=== PATIENT | male | born 1970 | race African-American/Black ===

== ENCOUNTER → 2016-06-20 | Outpatient (CLI) | payer MEDICAID ==
[2016-06-20 12:36] LABS: Basophils % (A) 1 %; CH 27.9; Eosinophils # (A) 0.1 k/uL (0-0.7); Eosinophils % (A) 2 %; HCT 48.4 % (39.0-53.0); HDW 2.59; HGB 14.7 gm/dL (13.0-17.5); Luc % (Auto) 2; Lymphocytes # (A) 1.6 k/uL (1.0-4.8); Lymphocytes % (A) 34 %; MCH 26.7 pg (25.0-35.0); MCHC 30.5 g/dL (31.0-37.0); MCV 87.7 fL (80.0-100.0); Monocytes # (A) 0.4 k/uL (0-1.0); Monocytes % (A) 9 %; Neutrophils # (A) 2.5 k/uL (1.3-7.7); Neutrophils % (A) 52 %; RBC 5.52 m/uL (4.30-5.90); RDW 12.9 % (11.5-15.5); WBC 4.7 k/uL (3.8-10.6); WBC (Perox) 4.55
[2016-06-20 12:45] LABS: ALT 34 U/L (21-72); AST 42 U/L (17-59); Alkaline Phosphatase 85 U/L (38-126); Anion Gap 13 mmol/L; Blood Urea Nitrogen 20 mg/dL (9-20); Calcium 9.7 mg/dL (8.4-10.2); Carbon Dioxide 23 mmol/L (22-30); Chloride 106 mmol/L (98-107); Cholesterol 176 mg/dL (<200); Creatine Kinase 453 U/L (55-170); Glucose 81 mg/dL (74-99); HDL Cholesterol 77 mg/dL (40-60); Iron 113 ug/dL (49-181); Non-African American GFR(MDRD) 59 (>60 ml/min/1.73 sqM); Potassium 4.5 mmol/L (3.5-5.1); Sodium 142 mmol/L (137-145); Total Bilirubin 1.8 mg/dL (0.2-1.3); Total Protein 7.7 g/dL (6.3-8.2); Triglycerides 91 mg/dL (<150)
[2016-06-20 12:55] LABS: % Iron Saturation 30.2 % (20-50); Total Iron Binding Capacity 374 ug/dL (261-462)
[2016-06-20 13:06] LABS: Hemoglobin A1C 5.2 % (4.2-6.1)
== END | disposition home or self-care (01) ==
LOC: LABWHC1 11:28
PROVIDERS: ATTEND Internal Medicine
DX: Z00.00 Encounter for general adult medical examination without abnormal findings (principal); E78.00 Pure hypercholesterolemia, unspecified; E55.9 Vitamin D deficiency, unspecified; K27.9 Peptic ulcer, site unspecified, unspecified as acute or chronic, without hemorrhage or perforation; F41.1 Generalized anxiety disorder
CPT/HCPCS: 36415; 80053; 80061; 82306; 82550; 82728; 83036; 83540; 83550; 84153; 84439; 84443; 85025

== ENCOUNTER → 2017-06-21 | Outpatient (CLI) | payer MEDICAID ==
--- NOTE | 2017-06-21 16:13 | XR ---
EXAMINATION TYPE: XR knee complete RT DATE OF EXAM: 06/21/2017 CLINICAL HISTORY: Right knee pain following a twisting injury while playing basketball TECHNIQUE: Three views of the right knee are obtained. COMPARISON: 12/29/2010 FINDINGS: There is a well-corticated osseous fragment medial to the medial distal femoral condyle th at is not seen on the lateral image and therefore does not represent a flabella. No donor site is [place] reciated and this is slightly cephalad in position to relate to a reverse Segond fracture, however th is remains a possibility and should be excluded with MRI. The tri-compartment joint spaces appear wi thin normal limits. The overlying soft tissue appears unremarkable. There is redemonstration of a si milar appearing approximately 1 cm lucent lesion within the central tibial plateau. Given the stabili ty this most likely represents a benign etiology. Patella christine is also demonstrated. IMPRESSION: Small osseous fragment medial to the medial femoral condyle which is atypical for a reverse Segond fr acture with no donor site appreciated, however this should be excluded and MRI could be performed for further evaluation. Note is also made of patella christine.
== END | disposition home or self-care (01) ==
LOC: RADXRMAIN 14:24
PROVIDERS: ATTEND Internal Medicine
DX: M25.561 Pain in right knee (principal)

== ENCOUNTER → 2017-07-03 | Outpatient (CLI) | payer MEDICAID ==
--- NOTE | 2017-07-03 10:11 | MR ---
EXAMINATION TYPE: MR knee RT wo con DATE OF EXAM: 07/03/2017 COMPARISON: Radiographs 06/21/2017 HISTORY: 47-year-old male with right knee pain TECHNIQUE: Multiplanar, multisequence imaging of the right knee is performed without IV contrast. FINDINGS: ACL is intact. There is linear abnormal signal extending throughout the PCL which is mildly thickened at 8 mm. Mild edema on either side of the intact MCL. LCL complex is intact. There is a posterior root tear of the medial meniscus with extruded meniscal body. Irregular tear ext ends throughout the posterior horn and body with meniscal fragment extruded into the superior gutter and a small 7 mm loose body also the superior gutter. Severe cartilage loss along the mid peripheral aspect of the medial tibial plateau with underlying wallace bchondral cystic change and moderate to severe irregular cartilage loss along the mid to posterior we ightbearing aspect of the medial femoral condyle. Again, subchondral cystic changes present. Minimal inner margin fraying of the body of the lateral meniscus. No other discrete lateral meniscal tear is seen. Overall lateral compartment articular cartilage volume is maintained. Moderate focal irregular cartilage loss along the trochlear groove. Patellar articular cartilage volu me is largely maintained. Extensor mechanism is intact. Focal soft tissue edema within Hoffa's fat located inferior and lateral to the patella. Some fragmentation at the tibial tuberosity could represent sequela of osteochondritis slaughters dis ease. Patellar height ratio is 1.1 which falls within acceptable limits. There is a small knee joint effusion without Cast's cyst. Normal popliteal artery anatomy and muscle bulk. There is a 1.3 cm intraosseous ganglion cyst at the tibial PCL insertion site. No suspicious bone marrow replacement. IMPRESSION: 1. Moderate to severe medial compartmental osteoarthrosis with a degenerative, torn, and extruded med ial meniscus. A meniscal fragment is extruded into the superior gutter where a 7 mm loose body is als o present. There is a complete posterior root tear also noted. 2. Partial tear PCL and low-grade sprain MCL. 3. Moderate focal irregular cartilage loss along the trochlear groove within the patellofemoral shivam rtment. 4. Focal soft tissue edema in Hoffa's fat inferior and lateral to the patella can be seen in the sett ing of fat pad impingement syndrome. Clinically correlate. 5. Small knee joint effusion.
== END | disposition home or self-care (01) ==
LOC: RADMRIMAIN 06:47
PROVIDERS: ATTEND Internal Medicine
DX: S83.421A Sprain of lateral collateral ligament of right knee, initial encounter (principal); S83.411A Sprain of medial collateral ligament of right knee, initial encounter; M17.11 Unilateral primary osteoarthritis, right knee; S83.241A Other tear of medial meniscus, current injury, right knee, initial encounter

== ENCOUNTER → 2017-07-10 | Outpatient (CLI) | payer MEDICAID ==
[2017-07-10 13:24] LABS: Basophils % (A) 1 %; Eosinophils # (A) 0.2 k/uL (0-0.7); Eosinophils % (A) 6 %; HCT 41.6 % (39.0-53.0); HGB 13.1 gm/dL (13.0-17.5); Hypochromasia Slight; Lymphocytes # (A) 1.3 k/uL (1.0-4.8); Lymphocytes % (A) 34 %; MCH 27.4 pg (25.0-35.0); MCHC 31.4 g/dL (31.0-37.0); MCV 87.4 fL (80.0-100.0); Mean Platelet Volume 6.9; Monocytes # (A) 0.3 k/uL (0-1.0); Monocytes % (A) 9 %; Neutrophils # (A) 1.9 k/uL (1.3-7.7); Neutrophils % (A) 48 %; Platelet Count 256 k/uL (150-450); RBC 4.76 m/uL (4.30-5.90); RDW 12.8 % (11.5-15.5); WBC 3.9 k/uL (3.8-10.6)
[2017-07-10 13:40] LABS: Potassium 3.9 mmol/L (3.5-5.1)
== END | disposition home or self-care (01) ==
LOC: LABPAT 12:57
PROVIDERS: ATTEND Internal Medicine
DX: Z01.818 Encounter for other preprocedural examination (principal); M23.91 Unspecified internal derangement of right knee
CPT/HCPCS: 36415; 80051; 85025; 93005

== ENCOUNTER 2017-07-19 13:27 | Day surgery (SDC) | payer MEDICAID ==
[2017-07-12 14:16] VITALS: BMI 20.5
--- NOTE | 2017-07-18 21:34 | HP ---
HISTORY AND PHYSICAL REASON FOR ADMISSION: Surgery 07/19/2017 HISTORY OF PRESENT ILLNESS: Owen Edwards is a 47-year-old patient seen with right knee pain. We discussed treatment options. He elected to proceed with arthroscopy. Consent was obtained his. PAST MEDICAL HISTORY: Noncontributory. PAST SURGICAL HISTORY: Knee arthroscopy. MEDICATIONS: [place] as needed, ibuprofen as needed. ALLERGIES: None reported. SOCIAL HISTORY: Patient denies tobacco use. PHYSICAL EXAMINATION: Evaluation of the right knee range of motion 0-90 degrees. Mild effusion. Tenderness medial joint line. Positive medial Candi's. Ligaments stable. Hip rotation without pain. Distal neurovascular exam is intact. RADIOGRAPHS: Right knee radiographs revealed moderate medial compartment osteoarthritis, right knee MRI revealed medial meniscal tear. IMPRESSION: Internal derangement, right knee with medial meniscal tear. PLAN: Right knee arthroscopy with partial meniscectomy and debridement. Surgery is scheduled for 07/19/2017. MMODL / IJN: [id number] /
[~2017-07-19 13:27] MED LIST: DEXAMETHASONE SOD PHOSPHATE 10 MG/ML 1 ML VIAL IV ONE; LIDOCAINE 1% 20 ML VIAL (10MG/ML) FOR IV START INTRADERMA PRN; MIDAZOLAM 2 MG/2 ML VIAL IV PRN; ONDANSETRON 4 MG/2 ML VIAL IVP ONE; SCOPOLAMINE 1.5MG/72HR PATCH TRANSDERM ONE; ceFAZolin IN SWFI 2 GM/20 ML SYRINGE IVP ONE
[2017-07-19] MEDS: LACTATED RINGERS 1,000 ML IV SCH ×2 (13:48→14:59)
[2017-07-19] MEDS ORDERED: BUPIVACAINE (PF) 0.25% 30 ML VIAL SQ ONE (14:17)
[2017-07-19] MEDS ORDERED: fentaNYL (PF) 50 MCG/ML 2 ML AMP ONE (14:59)
[2017-07-19] MEDS ORDERED: MIDAZOLAM 2 MG/2 ML VIAL ONE (14:59)
[2017-07-19] MEDS ORDERED: SUCCINYLCHOLINE CHLORIDE 100 MG/5 ML SYR IV ONE (14:59)
[2017-07-19] MEDS ORDERED: PROPOFOL 10 MG/ML 20 ML VIAL IV ONE (14:59)
[2017-07-19] MEDS ORDERED: LIDOCAINE 1% INJ 10MG/ML (20 ML MDV) ONE (14:59)
[2017-07-19 15:48] VITALS: TEMP 97.2
--- NOTE | 2017-07-19 15:48 | P.OP ---
Date of Procedure: 07/19/17 Preoperative Diagnosis: Internal derangement right knee Postoperative Diagnosis: 1. Tear medial and lateral meniscus right knee 2. 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 Grade 4 chondromalacia medial tibial plateau right knee 4. Grade 2 chondromalacia patella right knee 5. Reactive synovitis medial and suprapatellar compartments right knee Procedure(s) Performed: 1. Arthroscopic partial medial and lateral meniscectomy right knee 2. Arthroscopic chondroplasty medial femoral condyle right knee 3. Arthroscopic chondroplasty patella right knee 4. Arthroscopic partial synovectomy medial and suprapatellar compartments right knee Anesthesia: KATHY, local Surgeon: Rick Delgadillo Estimated Blood Loss (ml): 7 Pathology: none sent Condition: stable Disposition: PACU Indications for Procedure: 47-year-old patient seen with right knee pain. We discussed treatment options, he elected to proceed with arthroscopy. Operative Findings: See description of procedure Description of Procedure: Patient was taken to the operative suite. Patient underwent a general anesthetic by the department of anesthesia. Patient was given preoperative antibiotics. The right lower extremity was placed in a well-padded arthroscopic leg lerma. The right leg was prepped and draped in the normal sterile orthopedic fashion. A lateral parapatellar and suprapatellar incision was made. Trochars were inserted. Arthroscopy was initiated. Suprapatellar pouch revealed diffuse thick reactive synovitis. The patellofemoral joint appeared articulate congruently. There was grade 2 chondromalacia of the patella with some osteochondral tears present. The scope was guided into the medial gutter. No loose bodies or plica were identified. The scope was then guided into the medial compartment. A medial parapatellar incision was made. Trocar inserted followed by probe. There was a large medial meniscal tear which was displaced into the anterior joint line area. This was reduced. It was a complete posterior horn medial meniscal tear just the midbody. There was an area of grade 3/4 chondromalacia weightbearing surface medial femoral condyle large osteochondral tears. There was an area of grade 4 chondromalacia medial tibial plateau with osteochondral tears and some exposed bone. There was thick reactive synovitis anteriorly. I performed a partial medial meniscectomy down to stable tissue. I performed a chondroplasty of the medial femoral condyle and tibial plateau down to stable tissue. I performed a partial synovectomy. The residual meniscus was stable. The residual osteochondral surfaces of the femoral condyle and tibial plateau were stable with the aforementioned areas of chondromalacia noted. Scope and probe were then guided into the intercondylar notch. Cruciates were identified, probed and found to be stable. The scope and probe were then guided into lateral compartment. There was some superficial tearing of the midbody lateral meniscus. There were some grade 1 chondromalacia changes lateral compartment with no osteochondral tears. I performed a partial lateral meniscectomy down to stable tissue. The residual meniscus was stable. The scope was in guided back into the suprapatellar compartment. Used a motorized shaver into the suprapatellar compartment. I debrided some piecemeal fragments of meniscus I encountered. I performed a chondroplasty of the patella down to stable tissue. I performed a partial synovectomy. Shaver removed. I took one more look around the entire knee, no residual debris. Instruments were now removed from the joint. The joint was infiltrated with .25% Marcaine. Steri-Strips were applied to the portal sites. Sterile dressings were applied. The patient was placed into a BIANCA hose. No tourniquet was utilized. The patient was awakened, transferred to a bed and taken to recovery stable satisfactory condition.
[2017-07-19] MEDS ORDERED: HYDROmorphone 2 MG/ML 1 ML SYRINGE IVP ONE ×2 (15:58→16:03)
[2017-07-19] MEDS: HYDROmorphone 0.5 MG/0.5 ML SYRINGE IVP PRN ×2 (16:15→16:59)
[2017-07-19 17:28] VITALS: RESP 18
[2017-07-19] MEDS ORDERED: HYDROcodone/APAP 10-325MG 1 EACH TAB PO ONE (17:40)
[2017-07-19 18:16] VITALS: BP 124/74; PULSE 86
== END 2017-07-19 18:49 | disposition home or self-care (01) ==
LOC: OR 13:27
PROVIDERS: ATTEND Orthopaedic Surgery
DX: S83.241A Other tear of medial meniscus, current injury, right knee, initial encounter (principal); S83.281A Other tear of lateral meniscus, current injury, right knee, initial encounter; X58.XXXA Exposure to other specified factors, initial encounter; M94.261 Chondromalacia, right knee; M22.41 Chondromalacia patellae, right knee; M65.861 Other synovitis and tenosynovitis, right lower leg; M25.461 Effusion, right knee; M17.11 Unilateral primary osteoarthritis, right knee; K21.9 Gastro-esophageal reflux disease without esophagitis; Z79.899 Other long term (current) drug therapy
CPT/HCPCS: 29880; J2250; J1170 ×2; J1100; J2405; J2001; J3010; J0330; J2704; J0690

== ENCOUNTER → 2018-01-24 | Outpatient (CLI) | payer MEDICAID ==
[2018-01-24 10:09] LABS: Appearance,Urine Clear (Clear); Bilirubin,Urine Negative (Negative); Blood,Urine Negative (Negative); Color,Urine Yellow; Glucose,Urine (UA) Negative (Negative); Ketones,Urine Negative (Negative); Leukocyte Esterase,Urine Negative (Negative); Nitrite,Urine Negative (Negative); PH, Urine 6.5 (5.0-8.0); Protein,Urine Trace (Negative); Specific Gravity,Urine 1.022 (1.001-1.035); Urobilinogen,Urine <2.0 mg/dL (<2.0)
[2018-01-24 10:17] LABS: Calcium 9.4 mg/dL (8.4-10.2); Potassium 4.5 mmol/L (3.5-5.1); Total Bilirubin 0.8 mg/dL (0.2-1.3); Total Protein 6.4 g/dL (6.3-8.2); Uric Acid 2.9 mg/dL (3.5-8.5)
[2018-01-24 10:21] LABS: Basophils % (A) 1 %; Eosinophils # (A) 0.4 k/uL (0-0.7); Eosinophils % (A) 11 %; HCT 37.5 % (39.0-53.0); HGB 11.5 gm/dL (13.0-17.5); Hypochromasia Moderate; Lymphocytes # (A) 1.3 k/uL (1.0-4.8); Lymphocytes % (A) 38 %; MCH 26.5 pg (25.0-35.0); MCHC 30.6 g/dL (31.0-37.0); MCV 86.5 fL (80.0-100.0); Mean Platelet Volume 6.8; Monocytes # (A) 0.4 k/uL (0-1.0); Monocytes % (A) 12 %; Neutrophils # (A) 1.2 k/uL (1.3-7.7); Neutrophils % (A) 36 %; Platelet Count 276 k/uL (150-450); RBC 4.33 m/uL (4.30-5.90); RDW 13.4 % (11.5-15.5); WBC 3.4 k/uL (3.8-10.6)
[2018-01-24 10:33] LABS: T4, Free (Free Thyroxine) 1.04 ng/dL (0.78-2.19)
[2018-01-24 10:47] LABS: Prostate Specific Antigen 0.49 ng/mL (0.00-4.00)
[2018-01-24 18:21] LABS: Hemoglobin A1C 5.7 % (4.0-6.0)
== END | disposition home or self-care (01) ==
LOC: LABWHC1 09:22
PROVIDERS: ATTEND Internal Medicine
DX: E55.9 Vitamin D deficiency, unspecified (principal); K27.9 Peptic ulcer, site unspecified, unspecified as acute or chronic, without hemorrhage or perforation; E78.00 Pure hypercholesterolemia, unspecified; F41.1 Generalized anxiety disorder; N40.0 Benign prostatic hyperplasia without lower urinary tract symptoms
CPT/HCPCS: 36415; 80053; 80061; 81003; 82306; 82550; 83036; 84153; 84439; 84443; 84550; 85025

== ENCOUNTER → 2018-04-25 | Outpatient (CLI) | payer MEDICAID ==
[2018-04-25 10:39] LABS: Basophils % (A) 1 %; Eosinophils # (A) 0.9 k/uL (0-0.7); Eosinophils % (A) 17 %; HCT 37.1 % (39.0-53.0); HGB 11.1 gm/dL (13.0-17.5); Hypochromasia Marked; Lymphocytes # (A) 1.8 k/uL (1.0-4.8); Lymphocytes % (A) 34 %; MCH 23.2 pg (25.0-35.0); MCV 77.4 fL (80.0-100.0); Mean Platelet Volume 6.4; Monocytes # (A) 0.4 k/uL (0-1.0); Monocytes % (A) 7 %; Neutrophils # (A) 2.1 k/uL (1.3-7.7); Neutrophils % (A) 38 %; Platelet Count 337 k/uL (150-450); RDW 13.8 % (11.5-15.5); WBC 5.3 k/uL (3.8-10.6)
[2018-04-25 17:51] LABS: Albumin 4.5 g/dL (3.80-4.90); Albumin/Globulin Ratio 2.14 (1.20-2.10); Calcium 9.3 mg/dL (8.7-10.3); Globulin 2.1 g/dL (2.1-3.7); LDL Cholesterol,Calculated 93.8 mg/dL (0.0-131.0); Potassium 3.9 mmol/L (3.5-5.5); Total Bilirubin 0.6 mg/dL (0.2-1.2); Total Protein 6.6 g/dL (6.2-8.2); VLDL Calculation 20.2 mg/dL (5.00-40.00)
[2018-04-25 17:53] LABS: T4, Free (Free Thyroxine) 1.2 ng/dL (0.80-1.80)
[2018-04-25 19:40] LABS: Hemoglobin A1C 6.2 % (4.0-6.0)
== END ==
LOC: LABWHC1 09:40
PROVIDERS: ATTEND Internal Medicine
DX: E55.9 Vitamin D deficiency, unspecified (principal); K27.9 Peptic ulcer, site unspecified, unspecified as acute or chronic, without hemorrhage or perforation; E78.00 Pure hypercholesterolemia, unspecified; F41.1 Generalized anxiety disorder
CPT/HCPCS: 36415; 80053; 80061; 82306; 82550; 83036; 84439; 84443; 85025

== ENCOUNTER → 2018-07-25 | Outpatient (CLI) | payer MEDICAID ==
--- NOTE | 2018-07-26 08:44 | MR ---
EXAMINATION TYPE: MR abdomen wo/w con DATE OF EXAM: 07/25/2018 COMPARISON: CT abdomen and pelvis July 10, 2012 HISTORY: Unspecified abdominal pain. CONTRAST: Standard multiplanar, multisequence MRI departmental protocol utilizing 7 mL intravenous Gadavist davide olinium contrast. FINDINGS: Patient has very little intra-abdominal fat making evaluation suboptimal. Lung bases are gr ossly clear. Liver is stable and upper limits of normal in size without suspicious mass. Gallbladder shows no intraluminal gallstones. There is mild extrahepatic biliary dilatation up to 9 mm without si gnificant intrahepatic biliary dilatation. No obstructing mass or calculus is seen. Common bile duct not significantly changed in size from prior CT. Spleen is stable and normal in size. There is simple appearing 6 mm cyst laterally upper to mid pole level left kidney coronal image 23 identified on current study new from prior CT. No adrenal masses a re identified. Pancreatic duct is seen perhaps mildly dilated diffusely without obstructing mass iden tified. Pancreas is overall normal in size. There is no suspicious small or large bowel dilatation. Left-sided ostomy redemonstrated. There is no abdominal ascites seen. Generalized osseous structures are intact. IMPRESSION: 1. Stable mild extrahepatic biliary dilatation without obstructing mass or calculus clearly seen. The re is new mild diffuse pancreatic ductal dilatation noted. Consider GI referral and/or ERCP to exclud e ampullary lesion.
== END | disposition home or self-care (01) ==
LOC: RADMRIMAIN 08:15
PROVIDERS: ATTEND Psychiatry & Neurology Neurology
DX: K86.89 Other specified diseases of pancreas (principal)
CPT/HCPCS: 74183; A9585

== ENCOUNTER → 2018-09-24 | Outpatient (CLI) | payer MEDICAID ==
[2018-09-24 13:40] LABS: HCT 40.7 % (39.0-53.0); HGB 13.1 gm/dL (13.0-17.5); Hypochromasia Slight; MCH 26.6 pg (25.0-35.0); MCHC 32.1 g/dL (31.0-37.0); MCV 82.8 fL (80.0-100.0); Mean Platelet Volume 7.2; Platelet Count 318 k/uL (150-450); RBC 4.91 m/uL (4.30-5.90); WBC 7.2 k/uL (3.8-10.6)
[2018-09-24 18:43] LABS: Albumin 4.9 g/dL (3.80-4.90); Albumin/Globulin Ratio 2.33 (1.60-3.17); Anion Gap 12.2 mmol/L (4.00-12.00); Calcium 9.8 mg/dL (8.7-10.3); Carbon Dioxide 22.8 mmol/L (21.6-31.8); Globulin 2.1 g/dL (1.6-3.3); Potassium 4.5 mmol/L (3.5-5.5); Total Bilirubin 1.2 mg/dL (0.2-1.2)
[2018-09-24 18:51] LABS: Alpha Fetoprotein, Tumor Mkr 5.5 ng/mL (0.0-7.9)
[2018-09-24 19:19] LABS: Cancer Antigen 19-9 3.6 U/mL (0.0-34.9)
== END ==
LOC: LABWHC1 11:22
DX: Z09 Encounter for follow-up examination after completed treatment for conditions other than malignant neoplasm (principal); Z93.3 Colostomy status
CPT/HCPCS: 36415; 80053; 82105; 85027; 86301

== ENCOUNTER 2018-10-13 13:12 | Emergency (ER) | payer MEDICAID ==
[2018-10-13] MEDS ORDERED: KETOROLAC 30 MG/ML 1 ML VIAL IVP STA (13:44)
[2018-10-13] MEDS ORDERED: MORPHINE SULFATE 4 MG/ML SYRINGE IVP STA (13:44)
[2018-10-13] MEDS ORDERED: SODIUM CHLORIDE 0.9% 1,000 ML IV ONE (13:44)
[2018-10-13] MEDS ORDERED: SODIUM CHLORIDE 0.9% 1,000 ML IV SCH (13:45)
--- NOTE | 2018-10-13 14:13 | XR ---
EXAMINATION TYPE: XR knee complete RT DATE OF EXAM: 10/13/2018 COMPARISON: 06/21/2017 HISTORY: Pain TECHNIQUE: 3 views FINDINGS: There is narrowing of the medial joint space with spurring of femoral and tibial condyles. There is moderate size knee joint effusion. There is calcification at the tibial tubercle. I see no f racture. IMPRESSION: Osteoarthritis. Knee joint effusion appears increased compared to old exam. There is oral tibial tubercle osteochondrosis unchanged.
[2018-10-13 14:48] LABS: Basophils % (A) 0 %; Eosinophils # (A) 0.4 k/uL (0-0.7); Eosinophils % (A) 6 %; HCT 44.5 % (39.0-53.0); HGB 13.5 gm/dL (13.0-17.5); Hypochromasia Moderate; Lymphocytes # (A) 1.2 k/uL (1.0-4.8); Lymphocytes % (A) 18 %; MCH 25.5 pg (25.0-35.0); MCHC 30.4 g/dL (31.0-37.0); MCV 83.9 fL (80.0-100.0); Mean Platelet Volume 7.5; Monocytes # (A) 0.4 k/uL (0-1.0); Monocytes % (A) 6 %; Neutrophils # (A) 4.7 k/uL (1.3-7.7); Neutrophils % (A) 68 %; Platelet Count 291 k/uL (150-450); RDW 14.1 % (11.5-15.5); WBC 6.9 k/uL (3.8-10.6)
[2018-10-13 14:55] LABS: Albumin 5.3 g/dL (3.5-5.0); C Reactive Protein 29.9 mg/L (<10.0); Calcium 10.4 mg/dL (8.4-10.2); Potassium 4.1 mmol/L (3.5-5.1); Total Bilirubin 0.9 mg/dL (0.2-1.3); Total Protein 8.8 g/dL (6.3-8.2)
[2018-10-13 15:22] LABS: Erythrocyte Sedimentation Rate 8 mm/hr (0-15)
--- NOTE | 2018-10-13 15:22 | ED ---
Lower Extremity Injury HPI <Cj Pfeiffer - Last Filed: 10/13/18 16:43> - General Source: patient, RN notes reviewed, old records reviewed Mode of arrival: wheelchair Limitations: physical limitation <Keesha Wakefield - Last Filed: 10/13/18 16:48> <Rogerio Allen - Last Filed: 10/13/18 18:10> - General Chief Complaint: Extremity Injury, Lower Stated Complaint: rt knee post injection pain Time Seen by Provider: 10/13/18 13:31 - History of Present Illness Initial Comments: Patient is a 48-year-old male presents to return today with right knee pain and swelling and inability to move the knee. Patient reports symptoms started after receiving the injections for meniscal tear by on Sunday. Patient states that he feels warm swollen. He reports significant pain with any range of motion. Patient reports is normal sensation distally. He denies any fevers or chills. Patient states that the swelling seemed to progress up the knee. (Keesha Wakefield) - Related Data Home Medications Medication Instructions Recorded Confirmed ALPRAZolam 0.5 mg PO BID PRN 05/12/15 10/13/18 Famotidine 20 mg PO BID 05/12/15 10/13/18 Zolpidem Tartrate 10 mg PO HS 05/12/15 10/13/18 HYDROcodone/APAP 10-325MG [[place] 1 tab PO Q8HR PRN 09/01/15 10/13/18 10-325] Allergies Allergy/AdvReac Type Severity Reaction Status Date / Time No Known Allergies Allergy Verified 10/13/18 13:34 Review of Systems ROS Other: All systems not noted in ROS Statement are negative. <Cj Pfeiffer - Last Filed: 10/13/18 16:43> ROS Other: All systems not noted in ROS Statement are negative. <Keesha Wakefield - Last Filed: 10/13/18 16:48> ROS Other: All systems not noted in ROS Statement are negative. <Rogerio Allen - Last Filed: 10/13/18 18:10> ROS Statement: Those systems with pertinent positive or pertinent negative responses have been documented in the HPI. Past Medical History Past Medical History: GERD/Reflux Additional Past Medical History / Comment(s): hx migraines, hx peptic ulcer disease, "low blood iron" History of Any Multi-Drug Resistant Organisms: None Reported Past Surgical History: Bowel Resection Additional Past Surgical History / Comment(s): colostomy, cyst removed from rt hand, gildardo knee arthroscopy Past Anesthesia/Blood Transfusion Reactions: No Reported Reaction Past Psychological History: Anxiety Smoking Status: Never smoker Past Alcohol Use History: None Reported Past Drug Use History: None Reported - Past Family History Mother Family Medical History: No Reported History <Keesha Wakefield - Last Filed: 10/13/18 16:48> General Exam Limitations: physical limitation General appearance: alert Head exam: Present: atraumatic, normocephalic, normal inspection Eye exam: Present: normal appearance, PERRL, EOMI. Absent: scleral icterus, conjunctival injection, periorbital swelling ENT exam: Present: normal exam, mucous membranes moist Neck exam: Present: normal inspection. Absent: tenderness, meningismus, lymphadenopathy Respiratory exam: Present: normal lung sounds bilaterally. Absent: respiratory distress, wheezes, rales, rhonchi, stridor Cardiovascular Exam: Present: regular rate, normal rhythm, normal heart sounds. Absent: systolic murmur, diastolic murmur, rubs, gallop, clicks GI/Abdominal exam: Present: soft, normal bowel sounds. Absent: distended, tenderness, guarding, rebound, rigid Extremities exam: Present: normal inspection, full ROM, normal capillary refill. Absent: tenderness, pedal edema, joint swelling, calf tenderness Right Upper Leg exam: Present: normal inspection, full ROM Knee exam: Present: tenderness, swelling, effusion (Patient has significant prepatellar effusion.). Absent: normal inspection, full ROM (Patient unable to flex the knee without significant pain) Lower Leg exam: Present: normal inspection, full ROM Ankle exam: Present: normal inspection, full ROM Foot/Toe exam: Present: normal inspection, full ROM Back exam: Present: normal inspection Neurological exam: Present: alert, oriented X3, CN II-XII intact Psychiatric exam: Present: normal affect, normal mood <Keesha Wakefield - Last Filed: 10/13/18 16:48> - General Exam Comments Initial Comments: This is a 48-year-old male. Alert and oriented. No significant Distress. (Keesha Wakefield) Course Vital Signs 10/13/18 13:24 Temperature 97.9 F Pulse Rate 69 Respiratory 16 Rate Blood Pressure 116/73 O2 Sat by Pulse 100 Oximetry Procedures - Bursa Procedures Consent Obtained: verbal consent - Joint Aspiration/Injection Consent Obtained: verbal consent Indications: to relieve pressure/pain Side of Body: right Joint Aspirated: knee Ultrasound Guidance: No Skin Prep: Chlorhexidine Local Anesthesia Used: Lidocaine 1% Amount of Anesthesia Used (mLs): 1 Needle Size Used: 18G Syringe Size Used: Other (10 and 100 cc) Fluid Obtained: viscous Total Fluid Obtained (mls): 45 Patient Tolerated Procedure: well, no complications <Cj Pfeiffer P - Last Filed: 10/13/18 16:43> Medical Decision Making - Lab Data Result diagrams: 10/13/18 14:20 10/13/18 14:20 <Cj Pfeiffer - Last Filed: 10/13/18 16:43> - Lab Data Result diagrams: 10/13/18 14:20 10/13/18 14:20 - Radiology Data Radiology results: report reviewed <Keesha Wakefield - Last Filed: 10/13/18 16:48> - Lab Data Result diagrams: 10/13/18 14:20 10/13/18 14:20 <Rogerio Allen - Last Filed: 10/13/18 18:10> - Medical Decision Making Patient is a 48-year-old male presents to return today with significant right knee pain and swelling after a joint injection by Dr. candida Joshi 2 days ago. Patient states his knee feels warm and swollen. He has significant pain with range of motion. Patient has noted prepatellar effusion. Patient had blood work obtained. White blood cell count is normal. CRP is mildly elevated at 29,000. JENNIFER Lugo did obtain a joint aspirate. There is noted to be yellow sanguinous fluid. Approximately 45 mL of fluid was removed from the prepatellar space. Patient's case transferred to Dr. Gregg Pending joint aspirate cultures and count. (Keesha Wakefield) - Lab Data Lab Results 10/13/18 10/13/18 10/13/18 Range/Units 14:20 14:20 14:20 WBC 6.9 (3.8-10.6) k/uL RBC 5.30 (4.30-5.90) m/uL Hgb 13.5 (13.0-17.5) gm/dL Hct 44.5 (39.0-53.0) % MCV 83.9 (80.0-100.0) fL MCH 25.5 (25.0-35.0) pg MCHC 30.4 L (31.0-37.0) g/dL RDW 14.1 (11.5-15.5) % Plt Count 291 (150-450) k/uL Neutrophils % 68 % Lymphocytes % 18 % Monocytes % 6 % Eosinophils % 6 % Basophils % 0 % Neutrophils # 4.7 (1.3-7.7) k/uL Lymphocytes # 1.2 (1.0-4.8) k/uL Monocytes # 0.4 (0-1.0) k/uL Eosinophils # 0.4 (0-0.7) k/uL Basophils # 0.0 (0-0.2) k/uL Hypochromasia Moderate ESR 8 (0-15) mm/hr Sodium 142 (137-145) mmol/L Potassium 4.1 (3.5-5.1) mmol/L Chloride 105 (98-107) mmol/L Carbon Dioxide 24 (22-30) mmol/L Anion Gap 13 mmol/L BUN 16 (9-20) mg/dL Creatinine 1.27 H (0.66-1.25) mg/dL Est GFR (CKD-EPI)AfAm 76 (>60 ml/min/1.73 sqM) Est GFR (CKD-EPI)NonAf 66 (>60 ml/min/1.73 sqM) Glucose 81 (74-99) mg/dL Plasma Lactic Acid Mike 1.4 (0.7-2.0) mmol/L Calcium 10.4 H (8.4-10.2) mg/dL Total Bilirubin 0.9 (0.2-1.3) mg/dL AST 28 (17-59) U/L ALT 21 (21-72) U/L Alkaline Phosphatase 91 (38-126) U/L C-Reactive Protein 29.9 H (<10.0) mg/L Total Protein 8.8 H (6.3-8.2) g/dL Albumin 5.3 H (3.5-5.0) g/dL Fluid Source Fluid Color Fluid Appearance Fluid RBC /uL Fluid Nucleated Cells /uL Fluid Polynuclear WBCs % Fluid Mononuclear WBCs % // Range/Units 16:20 WBC (3.8-10.6) k/uL RBC (4.30-5.90) m/uL Hgb (13.0-17.5) gm/dL Hct (39.0-53.0) % MCV (80.0-100.0) fL MCH (25.0-35.0) pg MCHC (31.0-37.0) g/dL RDW (11.5-15.5) % Plt Count (150-450) k/uL Neutrophils % % Lymphocytes % % Monocytes % % Eosinophils % % Basophils % % Neutrophils # (1.3-7.7) k/uL Lymphocytes # (1.0-4.8) k/uL Monocytes # (0-1.0) k/uL Eosinophils # (0-0.7) k/uL Basophils # (0-0.2) k/uL Hypochromasia ESR (0-15) mm/hr Sodium (137-145) mmol/L Potassium (3.5-5.1) mmol/L Chloride (98-107) mmol/L Carbon Dioxide (22-30) mmol/L Anion Gap mmol/L BUN (9-20) mg/dL Creatinine (0.66-1.25) mg/dL Est GFR (CKD-EPI)AfAm (>60 ml/min/1.73 sqM) Est GFR (CKD-EPI)NonAf (>60 ml/min/1.73 sqM) Glucose (74-99) mg/dL Plasma Lactic Acid Mike (0.7-2.0) mmol/L Calcium (8.4-10.2) mg/dL Total Bilirubin (0.2-1.3) mg/dL AST (17-59) U/L ALT (21-72) U/L Alkaline Phosphatase (38-126) U/L C-Reactive Protein (<10.0) mg/L Total Protein (6.3-8.2) g/dL Albumin (3.5-5.0) g/dL Fluid Source Synovial Fluid Color Yellow Fluid Appearance Hazy Fluid RBC 900 /uL Fluid Nucleated Cells 72092 /uL Fluid Polynuclear WBCs 92 % Fluid Mononuclear WBCs 8 % - Radiology Data Evidence of osseous or arthritis, knee joint effusion. Increasing per old exam. There is tibial tubercle osteochondrosis unchanged. (Keesha Wakefield) Disposition <Cj Pfeiffer - Last Filed: 10/13/18 16:43> Is patient prescribed a controlled substance at d/c from ED?: No Time of Disposition: 16:51 <Keesha Wakefield - Last Filed: 10/13/18 16:48> Is patient prescribed a controlled substance at d/c from ED?: No <Rogerio Allen - Last Filed: 10/13/18 18:10> Clinical Impression: Effusion, right knee Disposition: HOME SELF-CARE Condition: Good Instructions (If sedation given, give patient instructions): Swollen Knee Joint (ED) Referrals: Isaiah Maldonado MD [Primary Care Provider] - 1-2 days
[2018-10-13] MEDS ORDERED: LIDOCAINE 1% INJ 10MG/ML (20 ML MDV) SQ ONE (15:49)
[2018-10-13 17:00] LABS: Appearance,BF Hazy; Color,BF Yellow; Nucleated Cells, Body Fluid 12200 /uL; RBC, Body Fluid 900 /uL
[2018-10-13 17:01] LABS: Mononuclear WBC,Body Fluid 8 %; Polynuclear WBC,Body Fluid 92 %; Total Cells Counted,Body Fluid 100
[2018-10-13 18:20] VITALS: BP 131/78; PULSE 83; RESP 18; TEMP 98.7
[2018-10-14 14:15] LABS: Total Protein, Body Fluid 4100 mg/dL
== END 2018-10-13 18:29 | disposition home or self-care (01) ==
LOC: EC 13:12
DX: M25.461 Effusion, right knee (principal); K21.9 Gastro-esophageal reflux disease without esophagitis; Z79.899 Other long term (current) drug therapy
CPT/HCPCS: 36415; 89060; 80053; 85652; 89050; 83605; 85025; 86140; 87040; 87070; 87205; 82945; 83615; 84157; 73562; 99284; 20610; J2270; J2001; J1885

== ENCOUNTER 2018-11-08 15:42 | Emergency (ER) | payer MEDICAID ==
--- NOTE | 2018-11-08 16:15 | ED ---
Nausea/Vomiting/Diarrhea HPI - General Chief complaint: Nausea/Vomiting/Diarrhea Stated complaint: vomiting Time Seen by Provider: 11/08/18 16:12 Source: patient, RN notes reviewed, old records reviewed Mode of arrival: ambulatory Limitations: no limitations - History of Present Illness Initial comments: This is a 48-year-old male the ER for evaluation. Patient resents with persistent nausea vomiting. Persistent pain abdominal pain. Patient has a s ignificant medical history including bowel resection for ulcerative disease. Patient has ostomy. Patient denies fevers. This does not feel well. Unable to keep anything down feels very dehydrated, symptoms times a day and a half. No sick contacts he thinks he may have a something that might not of been good for him. Eggs. Otherwise no one in the family has similar complaints. He again denies fevers. MD complaint: nausea, vomiting -: hour(s) Description of Vomiting: food contents, watery Associated Abdominal Pain: Yes Location: diffuse Radiation: none Severity: moderate Severity scale (1-10): 6 Quality: aching Improves with: none Worsens with: eating Associated Symptoms: loss of appetite, nausea/vomiting, weakness - Related Data Home Medications Medication Instructions Recorded Confirmed ALPRAZolam 0.5 mg PO BID PRN 05/12/15 10/13/18 Famotidine 20 mg PO BID 05/12/15 10/13/18 Zolpidem Tartrate 10 mg PO HS 05/12/15 10/13/18 HYDROcodone/APAP 10-325MG [[place] 1 tab PO Q8HR PRN 09/01/15 10/13/18 10-325] Allergies Allergy/AdvReac Type Severity Reaction Status Date / Time No Known Allergies Allergy Verified 11/08/18 15:53 Review of Systems ROS Statement: Those systems with pertinent positive or pertinent negative responses have been documented in the HPI. ROS Other: All systems not noted in ROS Statement are negative. Past Medical History Past Medical History: GERD/Reflux Additional Past Medical History / Comment(s): hx migraines, hx peptic ulcer disease, "low blood iron" History of Any Multi-Drug Resistant Organisms: VRE Date of last positivie culture/infection: 10/13/18 MDRO Source:: VRE KNEE Past Surgical History: Bowel Resection, Orthopedic Surgery Additional Past Surgical History / Comment(s): colostomy, cyst removed from rt hand, gildardo knee arthroscopy Past Anesthesia/Blood Transfusion Reactions: No Reported Reaction Past Psychological History: Anxiety Smoking Status: Never smoker Past Alcohol Use History: None Reported Past Drug Use History: None Reported - Past Family History Mother Family Medical History: No Reported History General Exam Limitations: no limitations General appearance: alert, in no apparent distress Head exam: Present: atraumatic, normocephalic, normal inspection Eye exam: Present: normal appearance, PERRL, EOMI. Absent: scleral icterus, conjunctival injection, periorbital swelling ENT exam: Present: normal exam, mucous membranes moist Neck exam: Present: normal inspection. Absent: tenderness, meningismus, lymphadenopathy Respiratory exam: Present: normal lung sounds bilaterally. Absent: respiratory distress, wheezes, rales, rhonchi, stridor Cardiovascular Exam: Present: regular rate, normal rhythm, normal heart sounds. Absent: systolic murmur, diastolic murmur, rubs, gallop, clicks GI/Abdominal exam: Present: soft, normal bowel sounds. Absent: distended, tende rness, guarding, rebound, rigid Extremities exam: Present: normal inspection, full ROM, normal capillary refill. Absent: tenderness, pedal edema, joint swelling, calf tenderness Back exam: Present: normal inspection Neurological exam: Present: alert, oriented X3, CN II-XII intact Psychiatric exam: Present: normal affect, normal mood Skin exam: Present: warm, dry, intact, normal color. Absent: rash Course Vital Signs 11/08/18 11/08/18 11/08/18 15:51 17:45 18:30 Temperature 98.6 F 99.1 F Pulse Rate 80 85 81 Respiratory 18 18 16 Rate Blood Pressure 147/90 140/99 144/91 O2 Sat by Pulse 100 99 98 Oximetry 11/08/18 11/08/18 11/08/18 19:19 19:45 20:15 Temperature 98.5 F Pulse Rate 87 55 L 86 Respiratory 18 18 18 Rate Blood Pressure 102/73 117/69 127/77 O2 Sat by Pulse 98 100 99 Oximetry 11/08/18 21:00 Temperature Pulse Rate 76 Respiratory 16 Rate Blood Pressure 105/66 O2 Sat by Pulse 97 Oximetry - Reevaluation(s) Reevaluation #1: 11/08/18 17:03 Medical record is reviewed Reevaluation #2: 11/08/18 17:03 Symptoms improved Medical Decision Making - Medical Decision Making Plan I male the ER for evaluation patient has history of significant peptic ulcer disease with surgery. X-rays negative labwork is not significantly abnormal, patient's feeling better with pain control and antiemetics and can be discharged - Lab Data Result diagrams: 11/08/18 17:18 11/08/18 17:18 Lab Results 11/08/18 11/08/18 11/08/18 Range/Units 17:18 17:18 17:18 WBC 8.9 (3.8-10.6) k/uL RBC 5.34 (4.30-5.90) m/uL Hgb 13.0 (13.0-17.5) gm/dL Hct 42.2 (39.0-53.0) % MCV 79.0 L (80.0-100.0) fL MCH 24.4 L (25.0-35.0) pg MCHC 30.9 L (31.0-37.0) g/dL RDW 13.8 (11.5-15.5) % Plt Count 275 (150-450) k/uL Neutrophils % 80 % Lymphocytes % 12 % Monocytes % 6 % Eosinophils % 1 % Basophils % 0 % Neutrophils # 7.1 (1.3-7.7) k/uL Lymphocytes # 1.1 (1.0-4.8) k/uL Monocytes # 0.5 (0-1.0) k/uL Eosinophils # 0.1 (0-0.7) k/uL Basophils # 0.0 (0-0.2) k/uL Hypochromasia Slight PT (9.0-12.0) sec INR (<1.2) APTT (22.0-30.0) sec Sodium 141 (137-145) mmol/L Potassium 4.2 (3.5-5.1) mmol/L Chloride 102 (98-107) mmol/L Carbon Dioxide 25 (22-30) mmol/L Anion Gap 14 mmol/L BUN 16 (9-20) mg/dL Creatinine 1.05 (0.66-1.25) mg/dL Est GFR (CKD-EPI)AfAm >90 (>60 ml/min/1.73 sqM) Est GFR (CKD-EPI)NonAf 84 (>60 ml/min/1.73 sqM) Glucose 110 H (74-99) mg/dL Lactic Ac Sepsis Rflx Plasma Lactic Acid Mike 2.2 H* (0.7-2.0) mmol/L Calcium 10.2 (8.4-10.2) mg/dL Phosphorus 4.2 (2.5-4.5) mg/dL Magnesium 1.8 (1.6-2.3) mg/dL Total Bilirubin 0.9 (0.2-1.3) mg/dL AST 37 (17-59) U/L ALT 43 (21-72) U/L Alkaline Phosphatase 157 H (38-126) U/L Troponin I (0.000-0.034) ng/mL Total Protein 8.6 H (6.3-8.2) g/dL Albumin 5.2 H (3.5-5.0) g/dL Urine Color Urine Appearance (Clear) Urine pH (5.0-8.0) Ur Specific [place] (1.001-1.035) Urine Protein (Negative) Urine Glucose (UA) (Negative) Urine Ketones (Negative) Urine Blood (Negative) Urine Nitrite (Negative) Urine Bilirubin (Negative) Urine Urobilinogen (<2.0) mg/dL Ur Leukocyte Esterase (Negative) Urine RBC (0-5) /hpf Urine WBC (0-5) /hpf Urine Mucus (None) /hpf 11/08/18 11/08/18 11/08/18 Range/Units 17:18 17:18 17:55 WBC (3.8-10.6) k/uL RBC (4.30-5.90) m/uL Hgb (13.0-17.5) gm/dL Hct (39.0-53.0) % MCV (80.0-100.0) fL MCH (25.0-35.0) pg MCHC (31.0-37.0) g/dL RDW (11.5-15.5) % Plt Count (150-450) k/uL Neutrophils % % Lymphocytes % % Monocytes % % Eosinophils % % Basophils % % Neutrophils # (1.3-7.7) k/uL Lymphocytes # (1.0-4.8) k/uL Monocytes # (0-1.0) k/uL Eosinophils # (0-0.7) k/uL Basophils # (0-0.2) k/uL Hypochromasia PT 9.8 (9.0-12.0) sec INR 0.9 (<1.2) APTT 23.8 (22.0-30.0) sec Sodium (137-145) mmol/L Potassium (3.5-5.1) mmol/L Chloride (98-107) mmol/L Carbon Dioxide (22-30) mmol/L Anion Gap mmol/L BUN (9-20) mg/dL Creatinine (0.66-1.25) mg/dL Est GFR (CKD-EPI)AfAm (>60 ml/min/1.73 sqM) Est GFR (CKD-EPI)NonAf (>60 ml/min/1.73 sqM) Glucose (74-99) mg/dL Lactic Ac Sepsis Rflx Y Plasma Lactic Acid Mike (0.7-2.0) mmol/L Calcium (8.4-10.2) mg/dL Phosphorus (2.5-4.5) mg/dL Magnesium (1.6-2.3) mg/dL Total Bilirubin (0.2-1.3) mg/dL AST (17-59) U/L ALT (21-72) U/L Alkaline Phosphatase (38-126) U/L Troponin I 0.012 (0.000-0.034) ng/mL Total Protein (6.3-8.2) g/dL Albumin (3.5-5.0) g/dL Urine Color Urine Appearance (Clear) Urine pH (5.0-8.0) Ur Specific [place] (1.001-1.035) Urine Protein (Negative) Urine Glucose (UA) (Negative) Urine Ketones (Negative) Urine Blood (Negative) Urine Nitrite (Negative) Urine Bilirubin (Negative) Urine Urobilinogen (<2.0) mg/dL Ur Leukocyte Esterase (Negative) Urine RBC (0-5) /hpf Urine WBC (0-5) /hpf Urine Mucus (None) /hpf 11/08/18 Range/Units 19:50 WBC (3.8-10.6) k/uL RBC (4.30-5.90) m/uL Hgb (13.0-17.5) gm/dL Hct (39.0-53.0) % MCV (80.0-100.0) fL MCH (25.0-35.0) pg MCHC (31.0-37.0) g/dL RDW (11.5-15.5) % Plt Count (150-450) k/uL Neutrophils % % Lymphocytes % % Monocytes % % Eosinophils % % Basophils % % Neutrophils # (1.3-7.7) k/uL Lymphocytes # (1.0-4.8) k/uL Monocytes # (0-1.0) k/uL Eosinophils # (0-0.7) k/uL Basophils # (0-0.2) k/uL Hypochromasia PT (9.0-12.0) sec INR (<1.2) APTT (22.0-30.0) sec Sodium (137-145) mmol/L Potassium (3.5-5.1) mmol/L Chloride (98-107) mmol/L Carbon Dioxide (22-30) mmol/L Anion Gap mmol/L BUN (9-20) mg/dL Creatinine (0.66-1.25) mg/dL Est GFR (CKD-EPI)AfAm (>60 ml/min/1.73 sqM) Est GFR (CKD-EPI)NonAf (>60 ml/min/1.73 sqM) Glucose (74-99) mg/dL Lactic Ac Sepsis Rflx Plasma Lactic Acid Mike (0.7-2.0) mmol/L Calcium (8.4-10.2) mg/dL Phosphorus (2.5-4.5) mg/dL Magnesium (1.6-2.3) mg/dL Total Bilirubin (0.2-1.3) mg/dL AST (17-59) U/L ALT (21-72) U/L Alkaline Phosphatase (38-126) U/L Troponin I (0.000-0.034) ng/mL Total Protein (6.3-8.2) g/dL Albumin (3.5-5.0) g/dL Urine Color Yellow Urine Appearance Clear (Clear) Urine pH 6.0 (5.0-8.0) Ur Specific [place] 1.031 (1.001-1.035) Urine Protein 1+ H (Negative) Urine Glucose (UA) Negative (Negative) Urine Ketones 2+ H (Negative) Urine Blood Negative (Negative) Urine Nitrite Negative (Negative) Urine Bilirubin Negative (Negative) Urine Urobilinogen <2.0 (<2.0) mg/dL Ur Leukocyte Esterase Negative (Negative) Urine RBC <1 (0-5) /hpf Urine WBC 1 (0-5) /hpf Urine Mucus Occasional H (None) /hpf - EKG Data -: EKG Interpreted by Me (EKG shows sinus rhythm rate of 64, OR 240, QRS 80, QTC 418) - Radiology Data Radiology results: report reviewed (X-ray abdominal series and chest is negative for acute disease), image reviewed Disposition Clinical Impression: Gastroenteritis, Dehydration Disposition: HOME SELF-CARE Condition: Good Instructions (If sedation given, give patient instructions): Acute Nausea and Vomiting (ED) Is patient prescribed a controlled substance at d/c from ED?: No Referrals: Isaiah Maldonado MD [Primary Care Provider] - 1-2 days
[2018-11-08] MEDS ORDERED: HYDROmorphone 1 MG/ML 1 ML SYRINGE IVP STA (16:29)
[2018-11-08] MEDS ORDERED: ONDANSETRON 4 MG/2 ML VIAL IVP STA (16:29)
[2018-11-08] MEDS ORDERED: SODIUM CHLORIDE 0.9% 500 ML 500 ML IV STA (16:29)
[2018-11-08] MEDS ORDERED: SODIUM CHLORIDE 0.9% 1,000 ML IV STA ×3 (16:29→19:42)
[2018-11-08] MEDS ORDERED: PANTOPRAZOLE 40 MG/10 ML VIAL IVP STA (16:29)
[2018-11-08 17:47] LABS: Basophils % (A) 0 %; Eosinophils # (A) 0.1 k/uL (0-0.7); Eosinophils % (A) 1 %; HCT 42.2 % (39.0-53.0); Hypochromasia Slight; Lymphocytes # (A) 1.1 k/uL (1.0-4.8); Lymphocytes % (A) 12 %; MCH 24.4 pg (25.0-35.0); MCHC 30.9 g/dL (31.0-37.0); Monocytes # (A) 0.5 k/uL (0-1.0); Monocytes % (A) 6 %; Neutrophils # (A) 7.1 k/uL (1.3-7.7); Neutrophils % (A) 80 %; Platelet Count 275 k/uL (150-450); RBC 5.34 m/uL (4.30-5.90); RDW 13.8 % (11.5-15.5); WBC 8.9 k/uL (3.8-10.6)
[2018-11-08 17:55] LABS: ALT 43 U/L (21-72); AST 37 U/L (17-59); Albumin 5.2 g/dL (3.5-5.0); Alkaline Phosphatase 157 U/L (38-126); Anion Gap 14 mmol/L; Blood Urea Nitrogen 16 mg/dL (9-20); Calcium 10.2 mg/dL (8.4-10.2); Carbon Dioxide 25 mmol/L (22-30); Chloride 102 mmol/L (98-107); Glucose 110 mg/dL (74-99); Magnesium 1.8 mg/dL (1.6-2.3); Phosphorus 4.2 mg/dL (2.5-4.5); Potassium 4.2 mmol/L (3.5-5.1); Sodium 141 mmol/L (137-145); Total Bilirubin 0.9 mg/dL (0.2-1.3); Total Protein 8.6 g/dL (6.3-8.2)
[2018-11-08 18:01] LABS: INR 0.9 (<1.2); Partial Thromboplastin Time 23.8 sec (22.0-30.0); Prothrombin Time 9.8 sec (9.0-12.0)
[2018-11-08] MEDS ORDERED: diphenhydrAMINE 50 MG/ML 1 ML VIAL IVP STA (18:09)
[2018-11-08] MEDS ORDERED: HYDROmorphone 0.5 MG/0.5 ML SYRINGE IVP STA (19:13)
--- NOTE | 2018-11-08 19:15 | XR ---
EXAMINATION TYPE: XR abdomen acute w cxr, 4V DATE OF EXAM: 11/08/2018 COMPARISON: NONE HISTORY: Vomiting, TECHNIQUE: Supine, upright, and left side down lateral decubitus views of the abdomen are obtained. FINDINGS: Chest: The lungs are well-expanded and clear. Pleural spaces are negative. Cardiac mediastinal silhou ette and bones and soft tissues are unremarkable. Chronic-appearing findings: Scattered high density material noted over the lower thorax and upper abd omen, of doubtful clinical significance. Right lower quadrant ostomy. Left paraspinal rounded 2 cm di ameter calcification noted. Also over the left renal shadow there are surgical wilfred. Abdomen and pelvis: There is no evidence for pneumoperitoneum. The bowel gas pattern is unremarkable as there is air throughout nondilated small and large bowel. No sizeable air fluid levels. No mass ef fects are seen. No unusual calcifications. IMPRESSION: No acute radiographic process.
[2018-11-08 19:56] VITALS: TEMP 98.5
[2018-11-08 20:09] LABS: Appearance,Urine Clear (Clear); Bilirubin,Urine Negative (Negative); Blood,Urine Negative (Negative); Color,Urine Yellow; Glucose,Urine (UA) Negative (Negative); Ketones,Urine 2+ (Negative); Leukocyte Esterase,Urine Negative (Negative); Mucus,Urine Occasional /hpf; Nitrite,Urine Negative (Negative); Protein,Urine 1+ (Negative); RBC,Urine <1 /hpf (0-5); Specific Gravity,Urine 1.031 (1.001-1.035); Urobilinogen,Urine <2.0 mg/dL (<2.0)
[2018-11-08 21:05] VITALS: BP 105/66; PULSE 76; RESP 16
== END 2018-11-08 21:25 | disposition home or self-care (01) ==
LOC: EC 15:42
DX: K52.9 Noninfective gastroenteritis and colitis, unspecified (principal); E86.0 Dehydration; R53.1 Weakness; R63.0 Anorexia; K21.9 Gastro-esophageal reflux disease without esophagitis; Z79.899 Other long term (current) drug therapy; Z87.11 Personal history of peptic ulcer disease; Z90.49 Acquired absence of other specified parts of digestive tract; Z93.3 Colostomy status
CPT/HCPCS: 99285; 96374; 96375 ×3; 96376; 96361 ×4; 36415; 93005; 80053; 83605; 83735; 84100; 84484; 85025; 85610; 85730; 81001; 74022; J1200; J2405; J1170 ×2; C9113

== ENCOUNTER → 2019-03-04 | Outpatient (CLI) | payer MEDICAID ==
[2019-03-04 10:03] LABS: Basophils # (A) 0.1 k/uL (0-0.2); Basophils % (A) 1 %; Eosinophils # (A) 0.5 k/uL (0-0.7); Eosinophils % (A) 10 %; HGB 10.6 gm/dL (13.0-17.5); Hypochromasia Marked; Lymphocytes % (A) 20 %; MCH 23.5 pg (25.0-35.0); MCHC 31.2 g/dL (31.0-37.0); MCV 75.5 fL (80.0-100.0); Microcytosis Slight; Monocytes # (A) 0.4 k/uL (0-1.0); Monocytes % (A) 8 %; Neutrophils # (A) 2.9 k/uL (1.3-7.7); Neutrophils % (A) 59 %; Platelet Count 204 k/uL (150-450); RBC 4.51 m/uL (4.30-5.90); RDW 15.9 % (11.5-15.5)
[2019-03-04 17:31] LABS: African American GFR (CKD) 74.3 (60.0-200.0); Albumin 4.1 g/dL (3.80-4.90); Albumin/Globulin Ratio 2.41 (1.60-3.17); Anion Gap 3.7 mmol/L (4.00-12.00); BUN/Creat Ratio 10.77 Ratio (12.00-20.00); Calcium 8.7 mg/dL (8.7-10.3); Carbon Dioxide 24.3 mmol/L (21.6-31.8); Chol/HDL Ratio 3.72; Globulin 1.7 g/dL (1.6-3.3); LDL Cholesterol,Calculated 96.4 mg/dL (0.0-131.0); Potassium 4.1 mmol/L (3.5-5.5); Total Bilirubin 0.6 mg/dL (0.3-1.2); Total Protein 5.8 g/dL (6.2-8.2); VLDL Calculation 28.6 mg/dL (5.00-40.00)
[2019-03-04 17:42] LABS: Vitamin D 25 Hydroxy 37.6 ng/mL (30.0-100.0)
[2019-03-04 17:50] LABS: T4, Free (Free Thyroxine) 0.8 ng/dL (0.80-1.80)
[2019-03-04 20:14] LABS: Hemoglobin A1C 6.1 % (4.0-6.0)
== END | disposition home or self-care (01) ==
LOC: LABWHC1 09:18
PROVIDERS: ATTEND Internal Medicine
DX: E78.2 Mixed hyperlipidemia (principal); N40.0 Benign prostatic hyperplasia without lower urinary tract symptoms; K27.9 Peptic ulcer, site unspecified, unspecified as acute or chronic, without hemorrhage or perforation
CPT/HCPCS: 36415; 80053; 80061; 82306; 82607; 83036; 84153; 84439; 84443; 85025

== ENCOUNTER → 2019-07-07 | Outpatient (CLI) | payer MEDICAID ==
[2019-07-08 01:59] LABS: ALT 18 U/L (10-49); AST 25 U/L (14-35); Albumin/Globulin Ratio 2.41 (1.60-3.17); Alkaline Phosphatase 76 U/L (41-126); Bilirubin, Conjugated <0.20 mg/dL (0.20-0.40); Globulin 1.7 g/dL (1.6-3.3); Total Bilirubin 0.3 mg/dL (0.3-1.2); Total Protein 5.8 g/dL (6.2-8.2)
== END | disposition home or self-care (01) ==
LOC: LABWHC1 17:14
PROVIDERS: ATTEND Internal Medicine
DX: K86.89 Other specified diseases of pancreas (principal)
CPT/HCPCS: 36415; 80076

== ENCOUNTER → 2020-02-18 | Outpatient (CLI) | payer MEDICAID ==
[2020-02-18 10:28] LABS: Basophils # (A) 0.1 k/uL (0-0.2); Basophils % (A) 1 %; Eosinophils # (A) 0.4 k/uL (0-0.7); Eosinophils % (A) 8 %; Hypochromasia Slight; Lymphocytes # (A) 1.5 k/uL (1.0-4.8); Lymphocytes % (A) 32 %; MCH 26.9 pg (25.0-35.0); MCHC 30.9 g/dL (31.0-37.0); MCV 87.3 fL (80.0-100.0); Mean Platelet Volume 7.4; Monocytes # (A) 0.6 k/uL (0-1.0); Monocytes % (A) 13 %; Neutrophils % (A) 43 %; Platelet Count 222 k/uL (150-450); RBC 4.47 m/uL (4.30-5.90); RDW 14.5 % (11.5-15.5); WBC 4.7 k/uL (3.8-10.6)
[2020-02-18 17:26] LABS: Albumin/Globulin Ratio 2.11 (1.60-3.17); Anion Gap 5.7 mmol/L (4.00-12.00); Calcium 8.8 mg/dL (8.7-10.3); Carbon Dioxide 22.3 mmol/L (21.6-31.8); Chol/HDL Ratio 4.02; Globulin 1.9 g/dL (1.6-3.3); LDL Cholesterol,Calculated 101.8 mg/dL (0.0-131.0); Non-African American GFR(CKD) 53.5 (60.0-200.0); Total Bilirubin 0.5 mg/dL (0.3-1.2); Total Protein 5.9 g/dL (6.2-8.2); VLDL Calculation 25.2 mg/dL (5.00-40.00)
== END | disposition home or self-care (01) ==
LOC: LABWHC1 09:23
PROVIDERS: ATTEND Internal Medicine
DX: E78.2 Mixed hyperlipidemia (principal); K21.0 Gastro-esophageal reflux disease with esophagitis; F41.9 Anxiety disorder, unspecified
CPT/HCPCS: 36415; 80053; 80061; 84443; 85025

== ENCOUNTER → 2020-03-09 | Outpatient (CLI) | payer MEDICAID ==
--- NOTE | 2020-03-10 07:00 | US ---
EXAMINATION TYPE: US kidneys/renal and bladder DATE OF EXAM: 03/09/2020 COMPARISON: MRI CLINICAL HISTORY: N18.9 Chronic kidney disease. EXAM MEASUREMENTS: Right Kidney: 9.0 x 4.7 x 4.4 cm Left Kidney: 10.4 x 5.4 x 4.6 cm Technically difficult limited study. Patient has a right ostomy, one acoustic window on right severely limiting visualization, left has ov erlying bowel gas obscuring kidney Right Kidney: limited views show no hydro Left Kidney: limited views show no hydro Bladder: wnl Bilateral Jets seen: yes There is no evidence for hydronephrosis at this point in time. No nephrolithiasis is seen. No ester s are identified. The urinary bladder is anechoic. Bilateral ureteral jets are seen. IMPRESSION: Limited evaluation although no distinct abnormality is identified at this time.
== END | disposition home or self-care (01) ==
LOC: RADUSWWP 16:13
PROVIDERS: ATTEND Internal Medicine
DX: N18.9 Chronic kidney disease, unspecified (principal)
CPT/HCPCS: 76770

== ENCOUNTER → 2020-08-24 | Outpatient (CLI) | payer MEDICAID ==
[2020-08-24 15:28] LABS: Basophils # (A) 0.04 X 10*3/uL (0.00-0.10); Basophils % (A) 0.8 %; Eosinophils # (A) 0.44 X 10*3/uL (0.04-0.35); Eosinophils % (A) 8.6 %; HCT 38.7 % (39.6-50.0); HGB 12.3 g/dL (13.0-17.0); Lymphocytes # (A) 1.35 X 10*3/uL (0.90-5.00); Lymphocytes % (A) 26.5 %; MCH 26.9 pg (27.0-32.0); MCHC 31.8 g/dL (32.0-37.0); MCV 84.5 fL (80.0-97.0); Mean Platelet Volume 11.3 fL (9.5-12.2); Monocytes % (A) 13.7 %; Neutrophils # (A) 2.56 X 10*3/uL (1.80-7.70); Neutrophils % (A) 50.2 %; Platelet Count 296 X 10*3/uL (140-440); RBC 4.58 X 10*6/uL (4.40-5.60)
[2020-08-24 15:48] LABS: African American GFR (CKD) 73.2 (60.0-200.0); Albumin 4.4 g/dL (3.80-4.90); Albumin/Globulin Ratio 2.1 (1.60-3.17); Anion Gap 6.4 mmol/L (4.00-12.00); BUN/Creat Ratio 12.31 Ratio (12.00-20.00); Calcium 9.1 mg/dL (8.7-10.3); Carbon Dioxide 25.6 mmol/L (21.6-31.8); Chol/HDL Ratio 4.4; Globulin 2.1 g/dL (1.6-3.3); LDL Cholesterol,Calculated 91.4 mg/dL (0.0-131.0); Non-African American GFR(CKD) 63.2 (60.0-200.0); Potassium 3.7 mmol/L (3.5-5.5); Total Bilirubin 0.5 mg/dL (0.2-1.2); Total Protein 6.5 g/dL (6.2-8.2); VLDL Calculation 44.6 mg/dL (5.00-40.00)
== END | disposition home or self-care (01) ==
LOC: LABWHC1 08:09
PROVIDERS: ATTEND Internal Medicine
DX: E78.2 Mixed hyperlipidemia (principal); K21.00 Gastro-esophageal reflux disease with esophagitis, without bleeding
CPT/HCPCS: 36415; 80053; 80061; 84443; 85025

== ENCOUNTER → 2020-09-30 | Outpatient (CLI) | payer MEDICAID ==
[2020-09-30 12:33] LABS: African American GFR (CKD) 80.7 (60.0-200.0); Albumin 4.2 g/dL (3.80-4.90); Albumin/Globulin Ratio 2.21 (1.60-3.17); Anion Gap 10.5 mmol/L (4.00-12.00); Calcium 8.9 mg/dL (8.7-10.3); Carbon Dioxide 23.5 mmol/L (21.6-31.8); Chol/HDL Ratio 4.41; Globulin 1.9 g/dL (1.6-3.3); Non-African American GFR(CKD) 69.6 (60.0-200.0); Potassium 3.9 mmol/L (3.5-5.5); Total Bilirubin 0.5 mg/dL (0.2-1.2); Total Protein 6.1 g/dL (6.2-8.2)
== END | disposition home or self-care (01) ==
LOC: LABWHC1 07:11
PROVIDERS: ATTEND Internal Medicine
DX: E78.2 Mixed hyperlipidemia (principal); R79.9 Abnormal finding of blood chemistry, unspecified
CPT/HCPCS: 36415; 80053; 80061

== ENCOUNTER → 2020-11-29 | Outpatient (CLI) | payer MEDICAID ==
--- NOTE | 2020-11-29 13:41 | XR ---
EXAMINATION TYPE: XR hand complete RT DATE OF EXAM: 11/29/2020 CLINICAL HISTORY: Pain. TECHNIQUE: Frontal, lateral and oblique images of the right hand are obtained. COMPARISON: Right hand x-ray November 26, 2014 FINDINGS: There is shortening and Suspected old fracture of the fifth metacarpal distally redemonstr ated. There is ulnar deviation and angulation with moderate to severe narrowing and mild ulnar side s purring redemonstrated. Remainder joint spaces show mild narrowing. Mild to moderate narrowing and mi ld spurring base of first metacarpal. The overlying soft tissue appears stable. IMPRESSION: As above. No significant change from prior.
== END | disposition home or self-care (01) ==
LOC: RADXRMAIN 13:08
PROVIDERS: ATTEND Internal Medicine
DX: M19.041 Primary osteoarthritis, right hand (principal); M77.8 Other enthesopathies, not elsewhere classified

== ENCOUNTER → 2020-12-01 | Outpatient (CLI) | payer MEDICAID ==
[2020-12-01 12:11] LABS: HCT 32.1 % (39.6-50.0); HGB 9.7 g/dL (13.0-17.0); MCH 24.9 pg (27.0-32.0); MCHC 30.2 g/dL (32.0-37.0); MCV 82.5 fL (80.0-97.0); Mean Platelet Volume 10.2 fL (9.5-12.2); Platelet Count 290 X 10*3/uL (140-440); RBC 3.89 X 10*6/uL (4.40-5.60); RDW 15.5 % (11.5-14.5); WBC 6.78 X 10*3/uL (4.50-10.00)
[2020-12-01 16:26] LABS: ALT 18 U/L (10-49); AST 29 U/L (14-35); African American GFR (CKD) 73.2 (60.0-200.0); Albumin/Globulin Ratio 1.91 (1.60-3.17); Alkaline Phosphatase 106 U/L (41-126); BUN/Creat Ratio 18.46 Ratio (12.00-20.00); Calcium 8.7 mg/dL (8.7-10.3); Chloride 108 mmol/L (96-109); Chol/HDL Ratio 4.37; Cholesterol 166 mg/dL (0-200); Globulin 2.2 g/dL (1.6-3.3); Glucose 144 mg/dL (70-110); LDL Cholesterol,Calculated 90.2 mg/dL (0.0-131.0); Non-African American GFR(CKD) 63.2 (60.0-200.0); Potassium 3.9 mmol/L (3.5-5.5); Rheumatoid Factor, Qnt <4 IU/mL (0-15); Sodium 141 mmol/L (135-145); Total Bilirubin 0.4 mg/dL (0.3-1.2); Total Protein 6.4 g/dL (6.2-8.2); Uric Acid 3.6 mg/dL (3.7-8.7)
[2020-12-01 17:04] LABS: Erythrocyte Sedimentation Rate 12 mm/Hr (0-20)
[2020-12-01 19:29] LABS: Cyclic Citrull Pep IgG Unit <0.5 U/mL; Cyclic Citrullinated Pep IgG NEGATIVE (NEGATIVE)
[2020-12-02 18:45] LABS: Reticulocyte % 2.08 % (0.10-1.80)
[2020-12-02 21:29] LABS: Hemoglobin A1C 5.5 % (4.0-6.0)
[2020-12-03 02:21] LABS: Folate, Serum 6.6 ng/mL
[2020-12-03 02:35] LABS: % Iron Saturation 6.09 (15.00-50.00)
== END | disposition home or self-care (01) ==
LOC: LABWHC1 07:03
PROVIDERS: ATTEND Internal Medicine
DX: M79.641 Pain in right hand (principal); E78.2 Mixed hyperlipidemia; K21.00 Gastro-esophageal reflux disease with esophagitis, without bleeding
CPT/HCPCS: 36415; 80053; 80061; 82607; 82728; 82746; 83010; 83036; 83540; 83550; 83615; 84550; 85027; 85045; 85652; 86038; 86200; 86431

== ENCOUNTER → 2021-03-17 | Outpatient (CLI) | payer MEDICAID ==
[2021-03-17 17:08] LABS: Basophils # (A) 0.03 X 10*3/uL (0.00-0.10); Basophils % (A) 0.6 %; Eosinophils # (A) 0.58 X 10*3/uL (0.04-0.35); Eosinophils % (A) 11.4 %; HCT 37.8 % (39.6-50.0); HGB 11.9 g/dL (13.0-17.0); Lymphocytes # (A) 1.12 X 10*3/uL (0.90-5.00); Lymphocytes % (A) 21.9 %; MCH 28.6 pg (27.0-32.0); MCHC 31.5 g/dL (32.0-37.0); MCV 90.9 fL (80.0-97.0); Monocytes # (A) 0.54 X 10*3/uL (0.20-1.00); Monocytes % (A) 10.6 %; Neutrophils # (A) 2.82 X 10*3/uL (1.80-7.70); Neutrophils % (A) 55.1 %; Platelet Count 270 X 10*3/uL (140-440); RBC 4.16 X 10*6/uL (4.40-5.60); RDW 14.6 % (11.5-14.5); WBC 5.11 X 10*3/uL (4.50-10.00)
[2021-03-17 18:19] LABS: Appearance,Urine Clear (Clear); Bilirubin,Urine Negative (Negative); Blood,Urine Negative (Negative); Color,Urine Yellow; Glucose,Urine (UA) Negative (Negative); Ketones,Urine Negative (Negative); Leukocyte Esterase,Urine Negative (Negative); Nitrite,Urine Negative (Negative); PH, Urine 6.5 (5.0-8.0); Protein,Urine Trace (Negative); Specific Gravity,Urine 1.025 (1.001-1.035); Urobilinogen,Urine <2.0 mg/dL (<2.0)
[2021-03-18 01:24] LABS: LDL Cholesterol,Calculated 84.7 mg/dL (0.0-131.0); VLDL Calculation 42.4 mg/dL (5.00-40.00)
[2021-03-18 02:25] LABS: % Iron Saturation 20.06 (15.00-50.00); African American GFR (CKD) 80.7 (60.0-200.0); Albumin 4.1 g/dL (3.8-4.9); Albumin/Globulin Ratio 2.3 (1.60-3.17); Anion Gap 9.9 mmol/L (4.00-12.00); BUN/Creat Ratio 14.58 Ratio (12.00-20.00); Blood Urea Nitrogen 17.5 mg/dL (9.0-27.0); Calcium 8.8 mg/dL (8.7-10.3); Carbon Dioxide 22.6 mmol/L (21.6-31.8); Chol/HDL Ratio 4.03 Ratio; Ferritin 50.5 ng/mL (22.0-322.0); Globulin 1.8 g/dL (1.6-3.3); HDL Cholesterol 41.9 mg/dL (40.00-60.00); Non-African American GFR(CKD) 69.6 (60.0-200.0); Prostate Specific Antigen 0.5 ng/mL (0.00-3.50); Total Bilirubin 0.3 mg/dL (0.30-1.20); Total Protein 5.8 g/dL (6.2-8.2)
== END | disposition home or self-care (01) ==
LOC: LABWHC1 09:36
PROVIDERS: ATTEND Internal Medicine
DX: Z00.00 Encounter for general adult medical examination without abnormal findings (principal); D50.0 Iron deficiency anemia secondary to blood loss (chronic); N40.0 Benign prostatic hyperplasia without lower urinary tract symptoms; E78.2 Mixed hyperlipidemia; F41.9 Anxiety disorder, unspecified
CPT/HCPCS: 36415; 80053; 80061; 81003; 82607; 82728; 83036; 83540; 83550; 84153; 84443; 85025

== ENCOUNTER 2021-06-12 19:58 | Inpatient (IN) | payer MEDICAID ==
--- NOTE | 2021-06-12 21:35 | XR ---
EXAMINATION TYPE: XR KUB DATE OF EXAM: 06/12/2021 9:19 PM CLINICAL HISTORY: Vomiting for one day TECHNIQUE: Two supine KUB image of the abdomen is obtained. COMPARISON: MRI abdomen 07/25/2018. Abdominal radiograph 11/08/2018. CT abdomen/pelvis 07/10/2012. FINDINGS: Right-sided ostomy is again seen. Mildly dilated loops of small bowel in the right lower abdomen measuring up to 3.5 cm in diameter. Surgical wilfred overlie the left abdomen and left renal shadow. Unchanged scattered nonspecific calc ific densities overlying the lung bases. Similar-appearing calcific density overlying the left paraspinal region. IMPRESSION: Nonspecific dilated loops of small bowel in the right lower abdomen measuring up to 3.5 cm in diamete r. Findings may reflect ileus versus early/partial bowel obstruction. Recommend appropriate clinical and laboratory correlation.
[2021-06-12 22:17] LABS: Basophils % (A) 0 %; Eosinophils % (A) 0 %; HCT 47.5 % (39.0-53.0); HGB 14.9 gm/dL (13.0-17.5); Lymphocytes # (A) 0.8 k/uL (1.0-4.8); Lymphocytes % (A) 10 %; MCH 28.5 pg (25.0-35.0); MCHC 31.4 g/dL (31.0-37.0); MCV 90.7 fL (80.0-100.0); Mean Platelet Volume 8.5; Monocytes # (A) 0.9 k/uL (0-1.0); Monocytes % (A) 11 %; Neutrophils # (A) 5.8 k/uL (1.3-7.7); Neutrophils % (A) 77 %; Platelet Count 304 k/uL (150-450); RBC 5.24 m/uL (4.30-5.90); RDW 12.1 % (11.5-15.5); WBC 7.5 k/uL (3.8-10.6)
[2021-06-12] MEDS ORDERED: HYDROmorphone 1 MG/ML 1 ML SYRINGE IVP STA (22:26)
[2021-06-12] MEDS ORDERED: ONDANSETRON 4 MG/2 ML VIAL IVP STA (22:26)
[2021-06-12 22:40] LABS: ALT 16 U/L (4-49); AST 26 U/L (17-59); African American GFR (CKD) >90 (>60 ml/min/1.73 sqM); Albumin 4.4 g/dL (3.5-5.0); Alkaline Phosphatase 98 U/L (38-126); Anion Gap 13 mmol/L; Blood Urea Nitrogen 21 mg/dL (9-20); Calcium 9.6 mg/dL (8.4-10.2); Carbon Dioxide 23 mmol/L (22-30); Chloride 100 mmol/L (98-107); Glucose 121 mg/dL (74-99); Non-African American GFR(CKD) 82 (>60 ml/min/1.73 sqM); Potassium 3.7 mmol/L (3.5-5.1); Sodium 136 mmol/L (137-145); Total Protein 7.4 g/dL (6.3-8.2)
--- NOTE | 2021-06-13 00:56 | CT ---
EXAMINATION TYPE: CT abdomen pelvis w con DATE OF EXAM: 06/12/2021 COMPARISON: 07/10/2012 HISTORY: abdominal pain/vomiting. Pt. has colostomy and states it is not draining properly CT DLP: 580.1 mGycm Automated exposure control for dose reduction was used. CONTRAST: Performed with IV Contrast, patient injected with 100ml mL of Isovue 300. Images obtained from the diaphragm to the floor the pelvis with IV contrast. Lung bases are clear of consolidation. There is some mild reticular interstitial infiltrate in the lo wer lobes. There is densely calcified pleural plaque at the posterior lung bases. Heart size is endy l. There is no cardial effusion. Liver spleen and stomach pancreas appear intact. There is previous gastric surgery. The bile ducts ar e not dilated. Gallbladder is intact. There is no adrenal mass. Kidneys show satisfactory contrast opacification. There is no hydronephrosi s. Ureters are not dilated. Delayed images show normal renal excretion. Bladder is almost empty. Ther e is no free fluid in the pelvis. There is no inguinal hernia. There are some gas and fluid-filled distended small bowel loops in the mid abdomen that measure up to 3.5 cm. There is ostomy in the left mid abdomen and also in the right mid abdomen. It is not clear w hich is the functioning stoma. There is some fluid around the small bowel close to the right side sto ma. The lumbar vertebrae have normal alignment. Disc spaces are fairly normal. There is no compression fr acture. Bony pelvis is intact. Hip joints are intact. IMPRESSION: Some dilated small bowel in the mid abdomen suggestive of partial mechanical obstruction or small bow el ileus adjacent to the right side stoma. There is left-sided stoma that apparently is not functiona l. There is small amount of intraperitoneal fluid adjacent to the dilated small bowel near the right- sided stoma.
[2021-06-13] MEDS ORDERED: ONDANSETRON 4 MG/2 ML VIAL IVP PRN (01:23)
[2021-06-13] MEDS ORDERED: NALOXONE 0.4 MG/ML 1 ML VIAL IV PRN (01:23)
--- NOTE | 2021-06-13 01:27 | ED ---
Abdominal Pain HPI - General Chief Complaint: Abdominal Pain Stated Complaint: Abdominal Pain, dehydration Time Seen by Provider: 06/12/21 22:09 Source: patient, RN notes reviewed Mode of arrival: ambulatory - History of Present Illness Initial Comments: Patient is a 50-year-old male that presents to the emergency department complaining of right lower quadrant abdominal pain. He notes he does have an ostomy and was eating sausage with casings which she notes is not supposed to eat. He notes he is been eating that for the past 5 days. He notes that he now feels like he has a bowel obstruction. Patient was mildly uncomfortable during exam and interview. He was otherwise in good spirits. He denied any chest pain shortness of breath headache nausea vomiting diarrhea constipation fever fatigue chills. - Related Data Home Medications Medication Instructions Recorded Confirmed ALPRAZolam 0.5 mg PO BID PRN 05/12/15 10/13/18 Famotidine 20 mg PO BID 05/12/15 10/13/18 Zolpidem Tartrate 10 mg PO HS 05/12/15 10/13/18 HYDROcodone/APAP 10-325MG [[place] 1 tab PO Q8HR PRN 09/01/15 10/13/18 10-325] Allergies Allergy/AdvReac Type Severity Reaction Status Date / Time No Known Allergies Allergy Verified 06/12/21 20:49 Review of Systems ROS Statement: Those systems with pertinent positive or pertinent negative responses have been documented in the HPI. ROS Other: All systems not noted in ROS Statement are negative. Past Medical History Past Medical History: GERD/Reflux Additional Past Medical History / Comment(s): hx migraines, hx peptic ulcer disease, "low blood iron" History of Any Multi-Drug Resistant Organisms: VRE Date of last positivie culture/infection: 10/13/18 MDRO Source:: VRE KNEE Past Surgical History: Bowel Resection, Orthopedic Surgery Additional Past Surgical History / Comment(s): colostomy, cyst removed from rt hand, gildardo knee arthroscopy Past Anesthesia/Blood Transfusion Reactions: No Reported Reaction Past Psychological History: Anxiety Smoking Status: Never smoker Past Alcohol Use History: None Reported Past Drug Use History: None Reported - Past Family History Mother Family Medical History: No Reported History General Exam General appearance: alert, in no apparent distress Head exam: Present: atraumatic, normocephalic, normal inspection Eye exam: Present: normal appearance, PERRL, EOMI. Absent: scleral icterus, conjunctival injection, periorbital swelling ENT exam: Present: normal exam, mucous membranes moist Neck exam: Present: normal inspection Respiratory exam: Present: normal lung sounds bilaterally. Absent: respiratory distress, wheezes, rales, rhonchi, stridor Cardiovascular Exam: Present: regular rate, normal rhythm, normal heart sounds. Absent: systolic murmur, diastolic murmur, rubs, gallop, clicks GI/Abdominal exam: Present: soft, tenderness (Right abdomen), normal bowel sounds, other (Ostomy in place clean with no signs or symptoms of infection.). Absent: distended, guarding, rebound, rigid Extremities exam: Present: normal inspection, full ROM, normal capillary refill. Absent: tenderness, pedal edema, joint swelling, calf tenderness Neurological exam: Present: alert, oriented X3 Psychiatric exam: Present: normal affect, normal mood Skin exam: Present: warm, dry, intact, normal color. Absent: rash Course Vital Signs 06/12/21 20:49 Temperature 99.6 F Pulse Rate 109 H Respiratory 22 Rate Blood Pressure 138/44 O2 Sat by Pulse 99 Oximetry Medical Decision Making - Medical Decision Making 50-year-old male with history of colostomy complaining of possible obstruction. Labs, CT of the abdomen and pelvis, 1 L normal saline, 1 mg of Dilaudid ordered. Labs are unremarkable. Computed tomography scan shows a partial small bowel structures or small bowel ileus. NG tube will be inserted. Case discussed with Dr. Epps, patient be admitted to hospital. Dr. Maldonado was consulted looks of the abdomen with surgery on consult. - Lab Data Result diagrams: 06/12/21 21:23 06/12/21 21:23 Lab Results 06/12/21 06/12/21 06/12/21 Range/Units 21:23 21:23 22:48 WBC 7.5 (3.8-10.6) k/uL RBC 5.24 (4.30-5.90) m/uL Hgb 14.9 (13.0-17.5) gm/dL Hct 47.5 (39.0-53.0) % MCV 90.7 (80.0-100.0) fL MCH 28.5 (25.0-35.0) pg MCHC 31.4 (31.0-37.0) g/dL RDW 12.1 (11.5-15.5) % Plt Count 304 (150-450) k/uL MPV 8.5 Neutrophils % 77 % Lymphocytes % 10 % Monocytes % 11 % Eosinophils % 0 % Basophils % 0 % Neutrophils # 5.8 (1.3-7.7) k/uL Lymphocytes # 0.8 L (1.0-4.8) k/uL Monocytes # 0.9 (0-1.0) k/uL Eosinophils # 0.0 (0-0.7) k/uL Basophils # 0.0 (0-0.2) k/uL Sodium 136 L (137-145) mmol/L Potassium 3.7 (3.5-5.1) mmol/L Chloride 100 (98-107) mmol/L Carbon Dioxide 23 (22-30) mmol/L Anion Gap 13 mmol/L BUN 21 H (9-20) mg/dL Creatinine 1.06 (0.66-1.25) mg/dL Est GFR (CKD-EPI)AfAm >90 (>60 ml/min/1.73 sqM) Est GFR (CKD-EPI)NonAf 82 (>60 ml/min/1.73 sqM) Glucose 121 H (74-99) mg/dL Plasma Lactic Acid Mike 2.2 H* (0.7-2.0) mmol/L Calcium 9.6 (8.4-10.2) mg/dL Total Bilirubin 1.0 (0.2-1.3) mg/dL AST 26 (17-59) U/L ALT 16 (4-49) U/L Alkaline Phosphatase 98 (38-126) U/L Total Protein 7.4 (6.3-8.2) g/dL Albumin 4.4 (3.5-5.0) g/dL - Radiology Data Radiology results: report reviewed, image reviewed CT abdomen and pelvis: Some dilated small bowel in the mid abdomen suggestive of partial mechanical obstruction or small bowel ileus adjacent to the right side stoma. There is left-sided stoma that apparently is not functional. There is small amount of intraperitoneal fluid adjacent to the dilated small bowel near right-sided stoma. Disposition Clinical Impression: Small bowel obstruction Disposition: ADMITTED IP TO THIS [facility] Condition: Stable Is patient prescribed a controlled substance at d/c from ED?: No Referrals: Isaiah Maldonado MD [Primary Care Provider] - 1-2 days Time of Disposition: 01:27
[2021-06-13] MEDS ORDERED: SODIUM CHLORIDE 0.9% 1,000 ML IV SCH (01:30)
[2021-06-13] MEDS: HYDROmorphone 1 MG/ML 1 ML SYRINGE IVP PRN ×4 (02:48→14:04)
--- NOTE | 2021-06-13 13:59 | XR ---
EXAMINATION TYPE: XR abdomen 2V DATE OF EXAM: 06/13/2021 COMPARISON: NONE HISTORY: Pain TECHNIQUE: Single supine KUB image of the abdomen is obtained FINDINGS: Postoperative changes are redemonstrated with multiple rings of sutures and right lower quadrant osto my. Dilated bowel appears to have normalized in the interval. No convincing evidence for pneumoperitoneum. No unusual calcifications. The lung bases are clear. The osseous structures are intact. IMPRESSION: 1. Overall nonobstructive bowel gas pattern.
[2021-06-13 15:06] VITALS: BP 127/68; PULSE 75; RESP 16; TEMP 97.5
[2021-06-14] MEDS ORDERED: FAMOTIDINE 20 MG/2 ML VIAL IV SCH (09:00)
== END 2021-06-13 16:23 | disposition home or self-care (01) | DRG 390 ==
LOC: EC 19:58 → 4SSUR 06-13 02:03
PROVIDERS: ADMIT Internal Medicine; ATTEND Internal Medicine
PROC: 0D9770Z Drainage of Stomach, Pylorus with Drainage Device, Via Natural or Artificial Opening (ICD-10-PCS; principal; 2021-06-13)
DX: K56.600 Partial intestinal obstruction, unspecified as to cause (principal); E86.0 Dehydration; K21.9 Gastro-esophageal reflux disease without esophagitis; G43.909 Migraine, unspecified, not intractable, without status migrainosus; Z20.822 Contact with and (suspected) exposure to COVID-19; F41.9 Anxiety disorder, unspecified; Z87.11 Personal history of peptic ulcer disease; Z93.3 Colostomy status; Z87.19 Personal history of other diseases of the digestive system
CPT/HCPCS: 36415; 74018; 74019; 74177; 80053; 83605; 85025; 87635; 96374; 96375; 99285

== ENCOUNTER → 2021-07-22 | Outpatient (CLI) | payer MEDICAID ==
--- NOTE | 2021-07-22 10:37 | XR ---
EXAMINATION TYPE: XR tibia fibula LT, 2 views DATE OF EXAM: 07/22/2021 Comparison: None Clinical History: 51-year-old male M79.605 left leg pain Findings: Generalized soft tissue swelling. No periostitis or osteolysis. No acute fracture, subluxation, dislo cation seen. Possible 6 mm wide osteochondral lesion medial talar dome. Impression: 1. Generalized soft tissue swelling of the left leg. No acute osseous abnormality seen. 2. Possible 6 mm wide osteochondral lesion of the medial talar dome at the ankle.
--- NOTE | 2021-07-22 11:25 | US ---
EXAMINATION TYPE: US venous doppler duplex LE LT DATE OF EXAM: 07/22/2021 10:59 AM COMPARISON: NONE CLINICAL HISTORY: M79.605 LEFT LEG PAIN. Left leg swelling and pain for the past 3 weeks SIDE PERFORMED: Left TECHNIQUE: The lower extremity deep venous system is examined utilizing real time linear array sonog eileen with graded compression, doppler sonography and color-flow sonography. VESSELS IMAGED: Common Femoral Vein Deep Femoral Vein Greater Saphenous Vein * Femoral Vein Popliteal Vein Small Saphenous Vein * Proximal Calf Veins (* superficial vessels) Left Leg: Negative for DVT No DVT seen. IMPRESSION no evidence for DVT at this time.
== END | disposition home or self-care (01) ==
LOC: RADUSWWP 10:05
PROVIDERS: ATTEND Internal Medicine
DX: M79.89 Other specified soft tissue disorders (principal)

== ENCOUNTER → 2021-08-25 | Outpatient (CLI) | payer MEDICAID ==
[2021-08-25 20:07] LABS: Chol/HDL Ratio 3.13 Ratio; LDL Cholesterol,Calculated 100.7 mg/dL (0.0-131.0)
[2021-08-25 20:15] LABS: Basophils # (A) 0.07 X 10*3/uL (0.00-0.10); Basophils % (A) 1.2 %; Eosinophils # (A) 0.58 X 10*3/uL (0.04-0.35); Eosinophils % (A) 9.7 %; HCT 37.3 % (39.6-50.0); HGB 11.4 g/dL (13.0-17.0); Immature Grans, Automated 0.2 %; Lymphocytes # (A) 1.57 X 10*3/uL (0.90-5.00); Lymphocytes % (A) 26.3 %; MCH 26.8 pg (27.0-32.0); MCHC 30.6 g/dL (32.0-37.0); MCV 87.6 fL (80.0-97.0); Mean Platelet Volume 12.1 fL (9.5-12.2); Monocytes % (A) 10.1 %; NRBC Per 100 WBC 0 /100 WBCS (0.0-0.0); Neutrophils # (A) 3.14 X 10*3/uL (1.80-7.70); Neutrophils % (A) 52.5 %; Platelet Count 294 X 10*3/uL (140-440); RBC 4.26 X 10*6/uL (4.40-5.60); RDW 15.3 % (11.5-14.5); WBC 5.97 X 10*3/uL (4.50-10.00)
[2021-08-25 20:25] LABS: ALT 20 U/L (10-49); AST 39 U/L (14-35); African American GFR (CKD) 80.1 (60.0-200.0); Albumin 3.6 g/dL (3.8-4.9); Albumin/Globulin Ratio 2.12 (1.60-3.17); Alkaline Phosphatase 72 U/L (41-126); Blood Urea Nitrogen 17.4 mg/dL (9.0-27.0); Calcium 8.7 mg/dL (8.7-10.3); Carbon Dioxide 21.1 mmol/L (20.0-27.5); Chloride 106 mmol/L (96-109); Globulin 1.7 g/dL (1.6-3.3); Glucose 91 mg/dL (70-110); Non-African American GFR(CKD) 69.1 (60.0-200.0); Potassium 4.5 mmol/L (3.5-5.5); Sodium 137 mmol/L (135-145); Total Protein 5.3 g/dL (6.2-8.2)
[2021-08-25 20:47] LABS: Erythrocyte Sedimentation Rate 6 mm/Hr (0-20)
== END | disposition home or self-care (01) ==
LOC: LABWHC1 11:41
PROVIDERS: ATTEND Internal Medicine
DX: E78.2 Mixed hyperlipidemia (principal); D50.0 Iron deficiency anemia secondary to blood loss (chronic); M79.89 Other specified soft tissue disorders
CPT/HCPCS: 36415; 80053; 80061; 84443; 85025; 85652

== ENCOUNTER → 2021-10-12 | Outpatient (CLI) | payer MEDICAID ==
[2021-10-12 16:19] LABS: Ferritin 20.9 ng/mL (22.0-322.0)
== END | disposition home or self-care (01) ==
LOC: LABWHC1 08:34
PROVIDERS: ATTEND Internal Medicine
DX: D50.0 Iron deficiency anemia secondary to blood loss (chronic) (principal)
CPT/HCPCS: 36415; 82607; 82728; 82746

== ENCOUNTER → 2021-10-13 | Outpatient (CLI) | payer MEDICAID | END | disposition home or self-care (01) | LOC: RADMRIMAIN 07:26 | PROVIDERS: ATTEND Internal Medicine | DX: Z53.9 Procedure and treatment not carried out, unspecified reason (principal) ==

== ENCOUNTER → 2022-01-05 | Outpatient (CLI) | payer MEDICAID ==
[2022-01-05 14:15] LABS: Basophils # (A) 0.05 X 10*3/uL (0.00-0.10); Basophils % (A) 0.9 %; Eosinophils # (A) 0.43 X 10*3/uL (0.04-0.35); HCT 39.8 % (39.6-50.0); HGB 11.9 g/dL (13.0-17.0); Immature Grans, Automated 0.2 %; Lymphocytes # (A) 1.72 X 10*3/uL (0.90-5.00); Lymphocytes % (A) 31.9 %; MCH 25.8 pg (27.0-32.0); MCHC 29.9 g/dL (32.0-37.0); MCV 86.3 fL (80.0-97.0); Mean Platelet Volume 11.3 fL (9.5-12.2); Monocytes # (A) 0.68 X 10*3/uL (0.20-1.00); Monocytes % (A) 12.6 %; NRBC Per 100 WBC 0 /100 WBCS (0.0-0.0); Neutrophils % (A) 46.4 %; Platelet Count 288 X 10*3/uL (140-440); RBC 4.61 X 10*6/uL (4.40-5.60); RDW 14.2 % (11.5-14.5); WBC 5.39 X 10*3/uL (4.50-10.00)
[2022-01-05 14:31] LABS: ALT 14 U/L (10-49); AST 32 U/L (14-35); African American GFR (CKD) 71.4 (60.0-200.0); Albumin/Globulin Ratio 1.85 (1.60-3.17); Alkaline Phosphatase 59 U/L (41-126); BUN/Creat Ratio 19.62 Ratio (12.00-20.00); Blood Urea Nitrogen 25.9 mg/dL (9.0-27.0); Calcium 9.1 mg/dL (8.7-10.3); Carbon Dioxide 23.9 mmol/L (20.0-27.5); Chloride 106 mmol/L (96-109); Chol/HDL Ratio 3.49 Ratio; Globulin 2.2 g/dL (1.6-3.3); Glucose 82 mg/dL (70-110); LDL Cholesterol,Calculated 123.4 mg/dL (0.0-131.0); Non-African American GFR(CKD) 61.6 (60.0-200.0); Potassium 4.1 mmol/L (3.5-5.5); Sodium 140 mmol/L (135-145); Total Protein 6.1 g/dL (6.2-8.2)
== END | disposition home or self-care (01) ==
LOC: LABWHC1 09:31
PROVIDERS: ATTEND Internal Medicine
DX: E78.2 Mixed hyperlipidemia (principal); K21.00 Gastro-esophageal reflux disease with esophagitis, without bleeding
CPT/HCPCS: 36415; 80053; 80061; 83036; 84439; 84443; 85025

== ENCOUNTER → 2022-05-01 | Outpatient (CLI) | payer MEDICAID ==
[2022-05-01 14:20] LABS: Basophils # (A) 0.06 X 10*3/uL (0.00-0.10); Basophils % (A) 1.1 %; Eosinophils # (A) 0.36 X 10*3/uL (0.04-0.35); Eosinophils % (A) 6.4 %; HCT 37.1 % (39.6-50.0); HGB 10.7 g/dL (13.0-17.0); Immature Grans, Automated 0.2 %; Lymphocytes # (A) 1.61 X 10*3/uL (0.90-5.00); Lymphocytes % (A) 28.8 %; MCH 23.4 pg (27.0-32.0); MCHC 28.8 g/dL (32.0-37.0); Monocytes # (A) 0.67 X 10*3/uL (0.20-1.00); NRBC Per 100 WBC 0 /100 WBCS (0.0-0.0); Neutrophils # (A) 2.89 X 10*3/uL (1.80-7.70); Neutrophils % (A) 51.5 %; Platelet Count 283 X 10*3/uL (140-440); RBC 4.58 X 10*6/uL (4.40-5.60); RDW 18.4 % (11.5-14.5)
[2022-05-01 14:36] LABS: % Iron Saturation 29.48 (15.00-50.00); ALT 16 U/L (10-49); AST 30 U/L (14-35); African American GFR (CKD) 75.5 (60.0-200.0); Albumin 4.4 g/dL (3.8-4.9); Albumin/Globulin Ratio 1.87 (1.60-3.17); Alkaline Phosphatase 63 U/L (41-126); BUN/Creat Ratio 18.02 Ratio (12.00-20.00); Blood Urea Nitrogen 22.7 mg/dL (9.0-27.0); Calcium 9.2 mg/dL (8.7-10.3); Chloride 106 mmol/L (96-109); Ferritin 95.9 ng/mL (22.0-322.0); Globulin 2.4 g/dL (1.6-3.3); Glucose 86 mg/dL (70-110); Iron 156 ug/dL (65-175); LDL Cholesterol,Calculated 110.5 mg/dL (0.0-131.0); Non-African American GFR(CKD) 65.2 (60.0-200.0); Potassium 4.3 mmol/L (3.5-5.5); Sodium 141 mmol/L (135-145); Total Iron Binding Capacity 529 ug/dL (228-460); Total Protein 6.8 g/dL (6.2-8.2)
[2022-05-01 14:41] LABS: Appearance,Urine Turbid (Clear); Bacteria,Urine None Seen /HPF (None Seen); Bilirubin,Urine Negative (Negative); Blood,Urine Negative (Negative); Color,Urine Yellow (Yellow); Ketones,Urine Trace mg/dL (Negative); Nitrite,Urine Negative (Negative); PH, Urine 6.5 (5.0-8.0); Specific Gravity,Urine >1.035 (1.001-1.030)
== END | disposition home or self-care (01) ==
LOC: LABWHC1 08:12
PROVIDERS: ATTEND Internal Medicine
DX: E78.2 Mixed hyperlipidemia (principal); K21.00 Gastro-esophageal reflux disease with esophagitis, without bleeding; D50.0 Iron deficiency anemia secondary to blood loss (chronic); N40.0 Benign prostatic hyperplasia without lower urinary tract symptoms; E53.8 Deficiency of other specified B group vitamins
CPT/HCPCS: 36415; 80053; 80061; 81001; 82607; 82728; 82746; 83036; 83540; 83550; 83735; 84153; 84443; 85025

== ENCOUNTER 2022-05-13 09:08 | Observation (INO) | payer MEDICAID ==
[2022-05-13] MEDS ORDERED: SODIUM CHLORIDE 0.9% 1,000 ML IV STA (09:16)
--- NOTE | 2022-05-13 09:57 | ED ---
General Adult HPI - General Chief complaint: Nausea/Vomiting/Diarrhea Stated complaint: Dehydration & cramping Time Seen by Provider: 05/13/22 09:16 Source: patient Mode of arrival: wheelchair Limitations: no limitations - History of Present Illness Initial comments: Dictation was produced using whodoyou dictation software. please excuse any grammatical, word or spelling errors. Chief Complaint: 51-year-old male with colostomy presents emergency department for muscle cramping and watery colostomy drainage History of Present Illness: Patient's 51-year-old male presents emergency department for colostomy watery drainage and cramping. Patient symptoms have none with the last several days. He states that his symptoms began at [facility]. He noticed that he has large amounts of watery drainage in his colostomy. Usually not this watery. Patient is not sure where his colostomy is connected 2. Patient has had a colostomy for 27 years. Denies any fever, chills or night sweats. The ROS documented in this emergency department record has been reviewed and confirmed by me. Those systems with pertinent positive or negative responses have been documented in the HPI. All other systems are other negative and/or noncontributory. PHYSICAL EXAM: General Impression: Alert and oriented x3, acute distress secondary pain HEENT: Normocephalic atraumatic, extra-ocular movements intact, pupils equal and reactive to light bilaterally, mucous membranes moist. Cardiovascular: Heart regular rate and rhythm Chest: Able to complete full sentences, no retractions, no tachypnea Abdomen: abdomen soft, diffuse palpatory tenderness, non-distended, no organomegaly Musculoskeletal: Pulses present and equal in all extremities, no peripheral edema Motor: no focal deficits noted Neurological: CN II-XII grossly intact, no focal motor or sensory deficits noted Skin: Intact with no visualized rashes Psych: Normal affect and mood ED course: 51-year-old male presents emergency Department with water colostomy drainage and diffuse abdominal cramping for several days. Vital signs upon arrival are within acceptable limits. Chart review was performed Laboratory evaluation obtained. CBC unremarkable. Metabolic panel shows non-gap acidosis likely secondary to fluid water loss. Rest of labs within acceptable limits. Patient reevaluated at bedside and still very symptomatic. Patient would benefit from short hospital stay for IV fluids, symptom control and medical monitoring. - Related Data Home Medications Medication Instructions Recorded Confirmed ALPRAZolam 0.5 mg PO BID PRN 05/12/15 06/13/21 Famotidine 20 mg PO BID 05/12/15 06/13/21 Zolpidem Tartrate 10 mg PO HS 05/12/15 06/13/21 HYDROcodone/APAP 10-325MG [[place] 1 tab PO Q8HR PRN 09/01/15 06/13/21 10-325] Cyanocobalamin [Vitamin B-12 1,000 mcg SQ QMONTHLY 06/13/21 06/13/21 Injection] Allergies Allergy/AdvReac Type Severity Reaction Status Date / Time No Known Allergies Allergy Verified 05/13/22 09:15 Review of Systems ROS Statement: Those systems with pertinent positive or pertinent negative responses have been documented in the HPI. ROS Other: All systems not noted in ROS Statement are negative. Past Medical History Past Medical History: GERD/Reflux Additional Past Medical History / Comment(s): hx migraines, hx peptic ulcer disease, "low blood iron" History of Any Multi-Drug Resistant Organisms: VRE Date of last positivie culture/infection: 10/13/18 MDRO Source:: VRE KNEE Past Surgical History: Bowel Resection, Orthopedic Surgery Additional Past Surgical History / Comment(s): colostomy, cyst removed from rt hand, gildardo knee arthroscopy Past Anesthesia/Blood Transfusion Reactions: No Reported Reaction Past Psychological History: Anxiety Smoking Status: Never smoker Past Alcohol Use History: None Reported Past Drug Use History: None Reported - Past Family History Mother Family Medical History: No Reported History General Exam Limitations: no limitations Course Vital Signs 05/13/22 05/13/22 09:12 11:49 Temperature 97.9 F 97.4 F L Pulse Rate 75 82 Respiratory 16 18 Rate Blood Pressure 134/94 144/84 O2 Sat by Pulse 99 96 Oximetry Medical Decision Making - Lab Data Result diagrams: 05/13/22 10:53 05/13/22 10:53 Lab Results 05/13/22 05/13/22 Range/Units 10:53 10:53 WBC 8.2 (3.8-10.6) k/uL RBC 5.64 (4.30-5.90) m/uL Hgb 14.1 (13.0-17.5) gm/dL Hct 49.1 (39.0-53.0) % MCV 87.1 (80.0-100.0) fL MCH 24.9 L (25.0-35.0) pg MCHC 28.6 L (31.0-37.0) g/dL RDW 17.3 H (11.5-15.5) % Plt Count 257 (150-450) k/uL MPV 7.9 Neutrophils % 87 % Lymphocytes % 8 % Monocytes % 3 % Eosinophils % 1 % Basophils % 0 % Neutrophils # 7.1 (1.3-7.7) k/uL Lymphocytes # 0.6 L (1.0-4.8) k/uL Monocytes # 0.2 (0-1.0) k/uL Eosinophils # 0.1 (0-0.7) k/uL Basophils # 0.0 (0-0.2) k/uL Hypochromasia Marked Anisocytosis Slight Sodium 136 L (137-145) mmol/L Potassium 5.4 H (3.5-5.1) mmol/L Chloride 109 H (98-107) mmol/L Carbon Dioxide 14 L (22-30) mmol/L Anion Gap 13 mmol/L BUN 21 H (9-20) mg/dL Creatinine 1.41 H (0.66-1.25) mg/dL Est GFR (CKD-EPI)AfAm 66 (>60 ml/min/1.73 sqM) Est GFR (CKD-EPI)NonAf 57 (>60 ml/min/1.73 sqM) Glucose 152 H (74-99) mg/dL Calcium 9.2 (8.4-10.2) mg/dL Magnesium 2.1 (1.6-2.3) mg/dL Total Bilirubin 0.4 (0.2-1.3) mg/dL AST 37 (17-59) U/L ALT 29 (4-49) U/L Alkaline Phosphatase 86 (38-126) U/L Total Protein 7.5 (6.3-8.2) g/dL Albumin 4.7 (3.5-5.0) g/dL Disposition Clinical Impression: Dehydration Disposition: ADMITTED IP TO THIS [facility] Condition: Fair Referrals: Isaiah Maldonado MD [Primary Care Provider] - 1-2 days Decision Time: 12:13
--- NOTE | 2022-05-13 10:56 | CT ---
EXAMINATION TYPE: CT abdomen pelvis w con DATE OF EXAM: 05/13/2022 COMPARISON: 06/12/2021 HISTORY: pain/cramps CT DLP: 559.2 mGycm Automated exposure control for dose reduction was used. TECHNIQUE: Helical acquisition of images was performed from the lung bases through the pelvis. CONTRAST: Performed without Oral Contrast and with IV Contrast, patient injected with 100 mL of Isovue 300. FINDINGS: As seen on the prior study, there are multiple large densely calcified pleural plaques otherwise the lung bases are clear.. The gallbladder wall is moderately thickened but there are no gallstones, pericholecystic fluid or ga llbladder distention. There is no biliary ductal dilatation. There is no focal mass or organomegaly involving the liver, pancreas, spleen or adrenal glands. The kidneys excrete contrast promptly and symmetrically and there is no solid renal mass or process. Caliber the abdominal aorta is normal throughout these are seen mid abdomen The left of midline The bowel loops are normal in caliber and there is no evidence of obstruction. No inflammatory change s are identified in the mesentery or bowel wall. There is no free intraperitoneal air or fluid. There is no pelvic mass, free fluid abscess or adenopathy or suspicious calcification the osseous str uctures are intact. IMPRESSION: 1. No change in the densely calcified pleural based plaques in the lower lobes. 2. 2 ostomies as described above 3. No bowel obstruction or inflammation. 4. Gallbladder wall moderately thickened without distention, pericholecystic fluid or gallstones. Gal lbladder wall did not appear thickened on the prior study.
[2022-05-13 10:58] LABS: Anisocytosis Slight; Basophils % (A) 0 %; Eosinophils # (A) 0.1 k/uL (0-0.7); Eosinophils % (A) 1 %; HCT 49.1 % (39.0-53.0); HGB 14.1 gm/dL (13.0-17.5); Hypochromasia Marked; Lymphocytes # (A) 0.6 k/uL (1.0-4.8); Lymphocytes % (A) 8 %; MCH 24.9 pg (25.0-35.0); MCHC 28.6 g/dL (31.0-37.0); MCV 87.1 fL (80.0-100.0); Mean Platelet Volume 7.9; Monocytes # (A) 0.2 k/uL (0-1.0); Monocytes % (A) 3 %; Neutrophils # (A) 7.1 k/uL (1.3-7.7); Neutrophils % (A) 87 %; Platelet Count 257 k/uL (150-450); RBC 5.64 m/uL (4.30-5.90); RDW 17.3 % (11.5-15.5); WBC 8.2 k/uL (3.8-10.6)
[2022-05-13 11:09] LABS: Albumin 4.7 g/dL (3.5-5.0); Calcium 9.2 mg/dL (8.4-10.2); Magnesium 2.1 mg/dL (1.6-2.3); Potassium 5.4 mmol/L (3.5-5.1); Total Bilirubin 0.4 mg/dL (0.2-1.3); Total Protein 7.5 g/dL (6.3-8.2)
[2022-05-13] MEDS ORDERED: ONDANSETRON 4 MG/2 ML VIAL IVP STA (11:54)
[2022-05-13] MEDS ORDERED: MORPHINE SULFATE 4 MG/ML SYRINGE IV STA (11:54)
[2022-05-13] MEDS ORDERED: SODIUM CHLORIDE 0.9% 500 ML 500 ML IV STA (11:54)
[2022-05-13] MEDS ORDERED: ONDANSETRON 4 MG/2 ML VIAL IVP PRN (12:07)
[2022-05-13] MEDS ORDERED: ACETAMINOPHEN TAB 325 MG TAB PO PRN (12:07)
[2022-05-13] MEDS ORDERED: NALOXONE 0.4 MG/ML 1 ML VIAL IV PRN (12:07)
[2022-05-13] MEDS ORDERED: MORPHINE SULFATE 2 MG/ML SYRINGE IVP STA (12:41)
[2022-05-13] MEDS: SODIUM CHLORIDE 0.9% 1,000 ML IV SCH ×2 (12:42→21:11)
[2022-05-13] MEDS: MORPHINE SULFATE 4 MG/ML SYRINGE IV PRN ×2 (15:29→19:00)
[2022-05-13] MEDS: PANTOPRAZOLE 40 MG/10 ML VIAL IVP SCH (16:32)
--- NOTE | 2022-05-13 17:09 | P.HPIM ---
History of Present Illness This is a pleasant 51 years old male with past medical history of GERD/Reflux, migraines, hx peptic ulcer disease, status post Bowel Resection, Presents because of abdominal pain all over his abdomen over the last 2 days, patient states his pain is 10/10, patient had difficulty adjusting his position to lie in his back for examination because of his abdominal pain, his abdomen is tender to touch and he has a guarding. He had some nausea vomiting several times over the last 2 days there was no blood. He says that he had a bowel movement when they are more watery and loose She denies urinary symptoms, no dysuria or urgency or change in his urine habits. No headache or dizziness or weakness or numbness. No chest pain or dyspnea. He has a smoking alcohol or illicit drugs He has colostomy back which is empty on the right abdomen area. He is a patient of Dr. Maldonado Patient's vitals are stable and patient is afebrile. CBC is unremarkable. Potassium elevated at 5.4. Creatinine is 1.4 compared to baseline of 1.3 Liver Enzymes not elevated. CT of the abdomen and pelvis with contrast done showing no change in the density of calcified pleural base plates in the lower lobes. 2 ostomies, no bowel obstruction or inflammation. Gallbladder was moderately thickened without distention pericholecystic fluid or gallstones. Gallbladder wall did not appear thickened on the prior study Review of Systems Review of systems CONSTITUTIONAL: No fever, no malaise, no fatigue. HEENT: No recent visual problems or hearing problems. Denied any sore throat. CARDIOVASCULAR: No orthopnea, PND, no palpitations, no syncope. PULMONARY: No shortness of breath, no cough, no hemoptysis. -GASTROINTESTINAL: As above . NEUROLOGICAL: No headaches, no weakness, no numbness. HEMATOLOGICAL: Denies any bleeding or petechiae. GENITOURINARY: Denies any burning micturition, frequency, or urgency. MUSCULOSKELETAL/RHEUMATOLOGICAL: Denies any joint pain, swelling, or any muscle pain. ENDOCRINE: Denies any polyuria or polydipsia. Past Medical History Past Medical History: GERD/Reflux Additional Past Medical History / Comment(s): hx migraines, hx peptic ulcer disease, "low blood iron" History of Any Multi-Drug Resistant Organisms: VRE Date of last positivie culture/infection: 10/13/18 MDRO Source:: VRE KNEE Past Surgical History: Bowel Resection, Orthopedic Surgery Additional Past Surgical History / Comment(s): colostomy, cyst removed from rt hand, gildardo knee arthroscopy Past Anesthesia/Blood Transfusion Reactions: No Reported Reaction Past Psychological History: Anxiety Smoking Status: Never smoker Past Alcohol Use History: None Reported Past Drug Use History: None Reported - Past Family History Mother Family Medical History: No Reported History Medications and Allergies Home Medications Medication Instructions Recorded Confirmed Type ALPRAZolam 0.5 mg PO BID PRN 05/12/15 05/13/22 History Zolpidem Tartrate 10 mg PO HS PRN 05/12/15 05/13/22 History HYDROcodone/APAP 10-325MG [[place] 1 tab PO Q8HR PRN 09/01/15 05/13/22 History 10-325] Allergies Allergy/AdvReac Type Severity Reaction Status Date / Time No Known Allergies Allergy Verified 05/13/22 13:37 Physical Exam Vitals: Vital Signs Temp Pulse Resp BP Pulse Ox 05/13/22 11:49 97.4 F L 82 18 144/84 96 05/13/22 09:12 97.9 F 75 16 134/94 99 Intake and Output 05/12/22 05/13/22 05/13/22 22:59 06:59 14:59 Other: Weight 72.575 kg GENERAL: The patient is alert and oriented x3, not in any acute distress. Well developed, well nourished. HEENT: Pupils are round and equally reacting to light. EOMI. No scleral icterus. No conjunctival pallor. Normocephalic, atraumatic. No pharyngeal erythema. No thyromegaly. CARDIOVASCULAR: S1 and S2 present. No murmurs, rubs, or gallops. PULMONARY: Chest is clear to auscultation, no wheezing or crackles. -ABDOMEN: Soft, nontender, nondistended, normoactive bowel sounds. No palpable organomegaly. Right-sided colostomy. Vague periumbilical tenderness, with some guarding, no rebound tenderness MUSCULOSKELETAL: No joint swelling or deformity. EXTREMITIES: No cyanosis, clubbing, or pedal edema. NEUROLOGICAL: Gross neurological examination did not reveal any focal deficits. SKIN: No rashes. no petechiae. Results CBC & Chem 7: 05/13/22 10:53 05/13/22 10:53 Labs: Abnormal Lab Results - Last 24 Hours (Table) 05/13/22 05/13/22 Range/Units 10:53 10:53 MCH 24.9 L (25.0-35.0) pg MCHC 28.6 L (31.0-37.0) g/dL RDW 17.3 H (11.5-15.5) % Lymphocytes # 0.6 L (1.0-4.8) k/uL Sodium 136 L (137-145) mmol/L Potassium 5.4 H (3.5-5.1) mmol/L Chloride 109 H (98-107) mmol/L Carbon Dioxide 14 L (22-30) mmol/L BUN 21 H (9-20) mg/dL Creatinine 1.41 H (0.66-1.25) mg/dL Glucose 152 H (74-99) mg/dL Assessment and Plan Assessment: Abdominal pain and tenderness, associated with recurrent nausea vomiting. CT show no bowel obstruction or inflammation. Second gallbladder wall Status post bowel resection with History of colostomy Chronic kidney disease stage III Hyperkalemia History of peptic ulcer disease History of GERD, gastroesophageal reflux disease History of migraine Plan: Continue with bowel rest Pain medication IV fluid check for C. diff, stool culture. Surgery consult Labs and medication were reviewed.. Continue same treatment. Continue with symptomatic treatment. Resume home medication. Monitor lytes and vitals. DVT and GI prophylaxis. Further recommendations as per clinical course of the patient DVT prophylaxis: Subcutaneous heparin GI Prophylaxis: Ppi Prognosis is guarded
[2022-05-13] MEDS ORDERED: ALPRAZolam 0.5 MG TAB PO PRN (20:26)
[2022-05-13] MEDS: HYDROmorphone 0.5 MG/0.5 ML SYRINGE IVP PRN (21:09)
[2022-05-13] MEDS: HEPARIN SODIUM,PORCINE/PF 5,000 UNIT/0.5 ML SYRINGE SQ SCH (21:11)
[2022-05-13] MEDS: ZOLPIDEM 5 MG TAB PO PRN (21:11)
[2022-05-14] MEDS: HYDROmorphone 0.5 MG/0.5 ML SYRINGE IVP PRN ×5 (00:56→20:31)
[2022-05-14] MEDS: SODIUM CHLORIDE 0.9% 1,000 ML IV SCH ×3 (05:01→15:09)
[2022-05-14] MEDS: HEPARIN SODIUM,PORCINE/PF 5,000 UNIT/0.5 ML SYRINGE SQ SCH ×2 (09:24→20:31)
[2022-05-14] MEDS: PANTOPRAZOLE 40 MG/10 ML VIAL IVP SCH (09:25)
[2022-05-14 11:07] LABS: Basophils # (A) 0.02 X 10*3/uL (0.00-0.10); Basophils % (A) 0.3 %; Eosinophils # (A) 0 X 10*3/uL (0.04-0.35); Eosinophils % (A) 0 %; HCT 38.9 % (39.6-50.0); HGB 11.7 g/dL (13.0-17.0); Immature Grans, Automated 0.1 %; Lymphocytes # (A) 0.98 X 10*3/uL (0.90-5.00); Lymphocytes % (A) 14.6 %; MCH 24.4 pg (27.0-32.0); MCHC 30.1 g/dL (32.0-37.0); MCV 81.2 fL (80.0-97.0); Mean Platelet Volume 12.1 fL (9.5-12.2); Monocytes # (A) 1.02 X 10*3/uL (0.20-1.00); Monocytes % (A) 15.2 %; NRBC Per 100 WBC 0 /100 WBCS (0.0-0.0); Neutrophils # (A) 4.66 X 10*3/uL (1.80-7.70); Neutrophils % (A) 69.8 %; Platelet Count 304 X 10*3/uL (140-440); RBC 4.79 X 10*6/uL (4.40-5.60); WBC 6.69 X 10*3/uL (4.50-10.00)
--- NOTE | 2022-05-14 11:15 | P.PN ---
Subjective This is a pleasant 51 years old male with past medical history of GERD/Reflux, migraines, hx peptic ulcer disease, status post Bowel Resection, Presents because of abdominal pain all over his abdomen over the last 2 days, patient states his pain is 10/10, patient had difficulty adjusting his position to lie in his back for examination because of his abdominal pain, his abdomen is tender to touch and he has a guarding. He had some nausea vomiting several times over the last 2 days there was no blood. He says that he had a bowel movement when they are more watery and loose She denies urinary symptoms, no dysuria or urgency or change in his urine habits. No headache or dizziness or weakness or numbness. No chest pain or dyspnea. He has a smoking alcohol or illicit drugs He has colostomy back which is empty on the right abdomen area. He is a patient of Dr. Maldonado Patient's vitals are stable and patient is afebrile. CBC is unremarkable. Potassium elevated at 5.4. Creatinine is 1.4 compared to baseline of 1.3 Liver Enzymes not elevated. CT of the abdomen and pelvis with contrast done showing no change in the density of calcified pleural base plates in the lower lobes. 2 ostomies, no bowel obstruction or inflammation. Gallbladder was moderately thickened without distention pericholecystic fluid or gallstones. Gallbladder wall did not appear thickened on the prior study 05/14/2022 Patient looks more awake and comfortable today, his abdominal pain is easily and down, he is a smiling and not in distress. He reports no worsening diarrhea actually since yesterday he states he hasn't attempted his colostomy bag and this morning also it looks empty as well. His abdominal tenderness looks less intense than yesterday, only mild in the periumbilical area. He had guarding yesterday but not today, no rebound tenderness. Surgery team or the been consulted, CT of the abdomen is noted. Other than that Vitas looks stable Hemoglobin one 14.1 down to 11.7, could be secondary to hemodilution. Rest of labs are pending Check hemoglobin tomorrow Creatinine on admission 1.4, hyperkalemia recheck and potassium is normal 4.8 yesterday. Patient remain nothing by mouth with surgery team consulted on the case Objective - Vital Signs Vital signs: Vital Signs Temp 98 F 05/14/22 07:00 Pulse 75 05/14/22 07:00 Resp 18 05/14/22 07:00 BP 108/65 05/14/22 07:00 Pulse Ox 99 05/14/22 07:00 FiO2 Intake & Output 05/13/22 05/14/22 05/14/22 18:59 06:59 18:59 Weight 72.575 kg 72.575 kg Other: # Voids 2 - Exam GENERAL: The patient is alert and oriented x3, not in any acute distress. Well developed, well nourished. HEENT: Pupils are round and equally reacting to light. EOMI. No scleral icterus. No conjunctival pallor. Normocephalic, atraumatic. No pharyngeal erythema. No thyromegaly. CARDIOVASCULAR: S1 and S2 present. No murmurs, rubs, or gallops. PULMONARY: Chest is clear to auscultation, no wheezing or crackles. -ABDOMEN: Soft, nontender, nondistended, normoactive bowel sounds. No palpable organomegaly. Right-sided colostomy. The severe periumbilical tenderness, with no guarding today, no rebound tenderness MUSCULOSKELETAL: No joint swelling or deformity. EXTREMITIES: No cyanosis, clubbing, or pedal edema. NEUROLOGICAL: Gross neurological examination did not reveal any focal deficits. SKIN: No rashes. no petechiae. - Labs CBC & Chem 7: 05/14/22 06:09 05/13/22 18:01 Labs: Abnormal Lab Results - Last 24 Hours (Table) 05/14/22 Range/Units 06:09 Hgb 11.7 L (13.0-17.0) g/dL Hct 38.9 L (39.6-50.0) % MCH 24.4 L (27.0-32.0) pg MCHC 30.1 L (32.0-37.0) g/dL RDW 20.0 H (11.5-14.5) % Monocytes # 1.02 H (0.20-1.00) X 10*3/uL Eosinophils # 0 L (0.04-0.35) X 10*3/uL Assessment and Plan Assessment: Abdominal pain and tenderness, associated with recurrent nausea vomiting. CT show no bowel obstruction or inflammation.thickened gallbladder wall Status post bowel resection with History of colostomy Chronic kidney disease stage III Hyperkalemia History of peptic ulcer disease History of GERD, gastroesophageal reflux disease History of migraine Plan: Continue with bowel rest Pain medication IV fluid check for C. diff, stool culture. However diarrhea resolved today. We'll keep monitoring Surgery consult Repeat labs in the morning and monitor hemoglobin Labs and medication were reviewed.. Continue same treatment. Continue with symptomatic treatment. Resume home medication. Monitor lytes and vitals. DVT and GI prophylaxis. Further recommendations as per clinical course of the patient DVT prophylaxis: Subcutaneous heparin GI Prophylaxis: Ppi Prognosis is guarded Dr. Maldonado was resume the care of the patient tomorrow
[2022-05-14 11:18] LABS: African American GFR (CKD) 80.9 (60.0-200.0); Anion Gap 11.1 mmol/L (10.00-18.00); BUN/Creat Ratio 19.75 Ratio (12.00-20.00); Blood Urea Nitrogen 23.5 mg/dL (9.0-27.0); Calcium 8.8 mg/dL (8.7-10.3); Carbon Dioxide 19.6 mmol/L (20.0-27.5); Magnesium 1.9 mg/dL (1.5-2.4); Non-African American GFR(CKD) 69.8 (60.0-200.0); Potassium 4.1 mmol/L (3.5-5.5)
--- NOTE | 2022-05-14 11:50 | P.GSCN ---
History of Present Illness Consult date: 05/14/22 History of present illness: Patient is a 51-year-old man who was in his usual state of health. He had a very heavy dinner on . He started developing crampy abdominal pain and then had profuse watery output from his colostomy. He then developed some severe muscle cramps in the lower extremity and then cramps in his abdomen so came to the ER. He was hydrated and is feeling better today. The watery output has stopped. He is just had flatus in the ostomy. No previous episodes of anything similar. No blood in the stool or dark tarry stool. He does have a history of some sort of perforated gastric ulcer. Due to this and it up with a colostomy and mucous fistula. He was told that that could be reversed but the patient declined as he is afraid of surgery. No problems with the ostomy appliance fitting well or issues with the mucous fistula Review of Systems All systems: negative Past Medical History Past Medical History: GERD/Reflux Additional Past Medical History / Comment(s): hx migraines, hx peptic ulcer disease, "low blood iron" History of Any Multi-Drug Resistant Organisms: VRE Year Discovered:: 10/13/18 MDRO Source:: VRE KNEE Past Surgical History: Bowel Resection, Orthopedic Surgery Additional Past Surgical History / Comment(s): colostomy, cyst removed from rt hand, gildardo knee arthroscopy Past Anesthesia/Blood Transfusion Reactions: No Reported Reaction Past Psychological History: Anxiety Smoking Status: Never smoker Past Alcohol Use History: None Reported Past Drug Use History: None Reported - Past Family History Mother Family Medical History: No Reported History Medications and Allergies Home Medications Medication Instructions Recorded Confirmed Type ALPRAZolam 0.5 mg PO BID PRN 05/12/15 05/13/22 History Zolpidem Tartrate 10 mg PO HS PRN 05/12/15 05/13/22 History HYDROcodone/APAP 10-325MG [[place] 1 tab PO Q8HR PRN 09/01/15 05/13/22 History 10-325] Allergies Allergy/AdvReac Type Severity Reaction Status Date / Time No Known Allergies Allergy Verified 05/13/22 13:37 Surgical - Exam Osteopathic Statement: *. No significant issues noted on an osteopathic structural exam other than those noted in the History and Physical/Consult. Vital Signs Temp Pulse Resp BP Pulse Ox 97.9 F 75 16 134/94 99 05/13/22 09:12 05/13/22 09:12 05/13/22 09:12 05/13/22 09:12 05/13/22 09:12 - General well developed, well nourished, no distress - Eyes normal ocular movement - Respiratory normal respiratory effort - Cardiovascular Rhythm: regular - Abdomen Right lower quadrant ostomy with no fluid in the appliance. Mature mucous fistula in the left lower quadrant Abdomen: soft, bowel sounds Results - Labs 05/14/22 06:09 05/14/22 06:09 Abnormal Lab Results - Last 24 Hours (Table) 05/14/22 05/14/22 Range/Units 06:09 06:09 Hgb 11.7 L (13.0-17.0) g/dL Hct 38.9 L (39.6-50.0) % MCH 24.4 L (27.0-32.0) pg MCHC 30.1 L (32.0-37.0) g/dL RDW 20.0 H (11.5-14.5) % Monocytes # 1.02 H (0.20-1.00) X 10*3/uL Eosinophils # 0 L (0.04-0.35) X 10*3/uL Chloride 111 H (96-109) mmol/L Carbon Dioxide 19.6 L (20.0-27.5) mmol/L Diabetes panel 05/13/22 05/14/22 Range/Units 18:01 06:09 Sodium 141 (135-145) mmol/L Potassium 4.8 4.1 (3.5-5.1) mmol/L Chloride 111 H (96-109) mmol/L Carbon Dioxide 19.6 L (20.0-27.5) mmol/L BUN 23.5 (9.0-27.0) mg/dL Creatinine 1.2 (0.6-1.5) mg/dL Glucose 105 (70-110) mg/dL Calcium 8.8 (8.7-10.3) mg/dL Calcium panel 05/14/22 Range/Units 06:09 Calcium 8.8 (8.7-10.3) mg/dL Pituitary panel 05/13/22 05/14/22 Range/Units 18:01 06:09 Sodium 141 (135-145) mmol/L Potassium 4.8 4.1 (3.5-5.1) mmol/L Chloride 111 H (96-109) mmol/L Carbon Dioxide 19.6 L (20.0-27.5) mmol/L BUN 23.5 (9.0-27.0) mg/dL Creatinine 1.2 (0.6-1.5) mg/dL Glucose 105 (70-110) mg/dL Calcium 8.8 (8.7-10.3) mg/dL Adrenal panel 05/13/22 05/14/22 Range/Units 18:01 06:09 Sodium 141 (135-145) mmol/L Potassium 4.8 4.1 (3.5-5.1) mmol/L Chloride 111 H (96-109) mmol/L Carbon Dioxide 19.6 L (20.0-27.5) mmol/L BUN 23.5 (9.0-27.0) mg/dL Creatinine 1.2 (0.6-1.5) mg/dL Glucose 105 (70-110) mg/dL Calcium 8.8 (8.7-10.3) mg/dL Assessment and Plan (1) Diarrhea Current Visit: Yes Status: Acute Code(s): R19.7 - DIARRHEA, UNSPECIFIED SNOMED Code(s): 76277425 (2) Dehydration Current Visit: Yes Status: Acute Code(s): E86.0 - DEHYDRATION SNOMED Code(s): 06497935 Plan: Patient is clinically improved. Diet will be started. He is able to tolerate clear liquids will be advanced to a soft diet. On reviewing the chart yesterday I ordered some stool studies but he hasn't had any diarrhea since that time so don't full any sort of infectious diarrhea. Currently nonsurgical. He be surgically stable for discharge once he tolerates a diet.
[2022-05-14] MEDS: ZOLPIDEM 5 MG TAB PO PRN (20:36)
[2022-05-15] MEDS: HYDROmorphone 0.5 MG/0.5 ML SYRINGE IVP PRN ×2 (00:26→04:34)
[2022-05-15] MEDS: SODIUM CHLORIDE 0.9% 1,000 ML IV SCH ×2 (00:27→06:30)
[2022-05-15] MEDS: HEPARIN SODIUM,PORCINE/PF 5,000 UNIT/0.5 ML SYRINGE SQ SCH (08:43)
[2022-05-15] MEDS: PANTOPRAZOLE 40 MG/10 ML VIAL IVP SCH (08:43)
--- NOTE | 2022-05-15 08:47 | P.DS ---
Providers Date of admission: 05/13/22 12:08 Expected date of discharge: 05/15/22 Attending physician: Isaiah Maldonado Consults: 05/13/22 12:38 Consult Physician Urgent Consulting Provider: Jennyfer Lora Consult Reason/Comments: history of peptic ulcer, here for n/v/d Do you want consulting provider notified?: Yes Primary care physician: Isaiah Maldonado Hospital Course: This is a pleasant 51 years old male with past medical history of GERD/Reflux, migraines, hx peptic ulcer disease, status post Bowel Resection, Presents because of abdominal pain all over his abdomen over the last 2 days, patient states his pain is 10/10, patient had difficulty adjusting his position to lie in his back for examination because of his abdominal pain, his abdomen is tender to touch and he has a guarding. He had some nausea vomiting several times over the last 2 days there was no blood. He says that he had a bowel movement when they are more watery and loose She denies urinary symptoms, no dysuria or urgency or change in his urine habits. No headache or dizziness or weakness or numbness. No chest pain or dyspnea. He has a smoking alcohol or illicit drugs He has colostomy back which is empty on the right abdomen area. He is a patient of Dr. Maldonado Patient's vitals are stable and patient is afebrile. CBC is unremarkable. Potassium elevated at 5.4. Creatinine is 1.4 compared to baseline of 1.3 Liver Enzymes not elevated. CT of the abdomen and pelvis with contrast done showing no change in the density of calcified pleural base plates in the lower lobes. 2 ostomies, no bowel obstruction or inflammation. Gallbladder was moderately thickened without distention pericholecystic fluid or gallstones. Gallbladder wall did not appear thickened on the prior study 05/14/2022 Patient looks more awake and comfortable today, his abdominal pain is easily and down, he is a smiling and not in distress. He reports no worsening diarrhea actually since yesterday he states he hasn't attempted his colostomy bag and this morning also it looks empty as well. His abdominal tenderness looks less intense than yesterday, only mild in the periumbilical area. He had guarding yesterday but not today, no rebound tenderness. Surgery team or the been consulted, CT of the abdomen is noted. Other than that Vitas looks stable Hemoglobin one 14.1 down to 11.7, could be secondary to hemodilution. Rest of labs are pending Check hemoglobin tomorrow Creatinine on admission 1.4, hyperkalemia recheck and potassium is normal 4.8 yesterday. Patient remain nothing by mouth with surgery team consulted on the case 05/15: Patient denies any abdominal pain or cramping. He is tolerating a regular diet and having normal ostomy output. No nausea or vomiting. Patient remains afebrile, heart rate 80, blood pressure 116/76, pulse ox 100% on room air. Repeat blood work reveals WBC 4.9, hemoglobin 10.8, platelet count 279. Stool for occult blood was negative and C. difficile toxin negative. Patient has been seen and followed by Dr. Lora and has signed off today as patient is stable for discharge. Patient will be discharged home today. DISCHARGE DIAGNOSES Abdominal pain and tenderness, associated with recurrent nausea vomiting. CT show no bowel obstruction or inflammation.thickened gallbladder wall Status post bowel resection with History of colostomy Chronic kidney disease stage III Hyperkalemia History of peptic ulcer disease History of GERD, gastroesophageal reflux disease History of migraine DISCHARGE PLAN RETURN HOME Greater than 35 minutes was utilized and coordinating patient's discharge. Impression and plan of care have been directed as dictated by the signing physician. Maya Gonzalez nurse practitioner acting as scribe for signing physician. Patient Condition at Discharge: Good Plan - Discharge Summary New Discharge Prescriptions: Continue ALPRAZolam 0.5 mg PO BID PRN PRN Reason: Anxiety Zolpidem Tartrate 10 mg PO HS PRN PRN Reason: sleep HYDROcodone/APAP 10-325MG [[place] 10-325] 1 tab PO Q8HR PRN PRN Reason: Pain Discharge Medication List ALPRAZolam 0.5 mg PO BID PRN 05/12/15 [History] Zolpidem Tartrate 10 mg PO HS PRN 05/12/15 [History] HYDROcodone/APAP 10-325MG [[place]oy 10-325] 1 tab PO Q8HR PRN 09/01/15 [History] Follow up Appointment(s)/Referral(s): Isaiah Maldonado MD [Primary Care Provider] - 1 Week (PLEASE CALL AND SCHEDULE APPOINTMENT.) Patient Instructions/Handouts: Dehydration (DC), Acute Abdominal Pain (DC) Activity/Diet/Wound Care/Special Instructions: FOLLOW UP WITH PRIMARY DIRECTED, SOONER IF WORSENING PROBLEMS OR CONCERNS. Discharge Disposition: HOME SELF-CARE
[2022-05-15 08:54] VITALS: BP 116/76; PULSE 80; RESP 16; TEMP 97.9
[2022-05-15 10:43] LABS: Basophils # (A) 0.02 X 10*3/uL (0.00-0.10); Basophils % (A) 0.4 %; Eosinophils # (A) 0.07 X 10*3/uL (0.04-0.35); Eosinophils % (A) 1.4 %; HCT 35.4 % (39.6-50.0); HGB 10.8 g/dL (13.0-17.0); Immature Grans, Automated 0.2 %; MCH 24.5 pg (27.0-32.0); MCHC 30.5 g/dL (32.0-37.0); MCV 80.5 fL (80.0-97.0); Mean Platelet Volume 12.1 fL (9.5-12.2); Monocytes # (A) 0.57 X 10*3/uL (0.20-1.00); Monocytes % (A) 11.4 %; NRBC Per 100 WBC 0 /100 WBCS (0.0-0.0); Neutrophils # (A) 3.12 X 10*3/uL (1.80-7.70); Neutrophils % (A) 62.6 %; Platelet Count 279 X 10*3/uL (140-440); RDW 19.2 % (11.5-14.5); WBC 4.99 X 10*3/uL (4.50-10.00)
--- NOTE | 2022-05-15 12:32 | P.PN ---
Subjective Progress Note Date: 05/15/22 The patient is seen on rounds. Denies any abdominal pain. Tolerating a diet. He is having normal ostomy output Objective - Vital Signs Vital signs: Vital Signs Temp 97.9 F 05/15/22 07:00 Pulse 80 05/15/22 07:00 Resp 16 05/15/22 08:00 BP 116/76 05/15/22 07:00 Pulse Ox 100 05/15/22 07:00 FiO2 Intake & Output 05/14/22 05/15/22 05/15/22 18:59 06:59 18:59 Intake Total 300 118 Balance 300 118 Intake: Oral 300 118 Other: Voiding Method Toilet Toilet # Voids 1 2 # Bowel Movements 2 - Constitutional General appearance: Present: cooperative, no acute distress - Gastrointestinal General gastrointestinal: Present: soft. Absent: distended, tenderness - Labs CBC & Chem 7: 05/15/22 08:10 05/14/22 06:09 Labs: Abnormal Lab Results - Last 24 Hours (Table) 05/15/22 Range/Units 08:10 Hgb 10.8 L (13.0-17.0) g/dL Hct 35.4 L (39.6-50.0) % MCH 24.5 L (27.0-32.0) pg MCHC 30.5 L (32.0-37.0) g/dL RDW 19.2 H (11.5-14.5) % Microbiology - Last 24 Hours (Table) 05/14/22 12:00 Stool Culture - Preliminary Stool Assessment and Plan (1) Diarrhea Status: Acute Code(s): R19.7 - DIARRHEA, UNSPECIFIED SNOMED Code(s): 659290 08 (2) Dehydration Status: Acute Code(s): E86.0 - DEHYDRATION SNOMED Code(s): 68847032 Plan: He is clinically improved. Is back to normal ostomy output. I will follow-up as needed. Surgically stable for discharge
== END 2022-05-15 09:57 | disposition home or self-care (01) ==
LOC: EC 09:08 → 6NMEDSUR 12:08
PROVIDERS: ADMIT Internal Medicine; ATTEND Internal Medicine
DX: R10.9 Unspecified abdominal pain (principal); R11.2 Nausea with vomiting, unspecified; E86.0 Dehydration; E87.5 Hyperkalemia; E87.20 Acidosis, unspecified; I12.9 Hypertensive chronic kidney disease with stage 1 through stage 4 chronic kidney disease, or unspecified chronic kidney disease; N18.30 Chronic kidney disease, stage 3 unspecified; K21.9 Gastro-esophageal reflux disease without esophagitis; F41.9 Anxiety disorder, unspecified; Z93.3 Colostomy status; Z79.899 Other long term (current) drug therapy; Z90.49 Acquired absence of other specified parts of digestive tract
CPT/HCPCS: 36415; 80053; 80048; 83735 ×2; 84132; 85025 ×3; 82272; 87324; 87045; 87046; 84145; 74177; G0378 ×3; J2270 ×2; J2405; C9113 ×3; J1170 ×3; Q9967; J1644 ×3; 96361; 96372; 96374; 96375; 96376; 99285

== ENCOUNTER → 2022-06-09 | Outpatient (CLI) | payer MEDICAID ==
--- NOTE | 2022-06-10 14:54 | MR ---
EXAMINATION TYPE: MR tib fib LT wo/w con DATE OF EXAM: 06/09/2022 COMPARISON: HISTORY: Left leg pain, swelling and limited movement since 2020 due to [place], anterior distal shins of both legs, visible scarring. CONTRAST: Standard multiplanar, multisequence MRI departmental protocol images were obtained without contrast a nd with 7 mL intravenous Gadavist gadolinium contrast. The tibia and fibula show fairly normal signal pattern. No edema. No fracture line seen. There is no evidence of a soft tissue mass. Muscle bundles of the left lower leg are intact. No evidence of a sof t tissue mass. No pathologic fluid collection. There is some minimal subcutaneous edema over the ante rior lower tibia. No sign of a knee joint effusion. The ankle joint appears anatomic. IMPRESSION: Minimal anterior subcutaneous edema over the lower tibia. No fracture seen. No evidence of a soft tis zak mass.
== END | disposition home or self-care (01) ==
LOC: RADMRIMAIN 13:58
PROVIDERS: ATTEND Internal Medicine
DX: M79.89 Other specified soft tissue disorders (principal); R60.0 Localized edema
CPT/HCPCS: 73720; A9585

== ENCOUNTER → 2022-10-09 | Outpatient (CLI) | payer MEDICAID ==
[2022-10-09 21:24] LABS: Basophils # (A) 0.03 X 10*3/uL (0.00-0.10); Basophils % (A) 0.6 %; Eosinophils # (A) 0.22 X 10*3/uL (0.04-0.35); Eosinophils % (A) 4.3 %; HCT 38.9 % (39.6-50.0); HGB 12.1 g/dL (13.0-17.0); Immature Grans, Automated 0.4 %; Lymphocytes # (A) 1.12 X 10*3/uL (0.90-5.00); MCH 27.1 pg (27.0-32.0); MCHC 31.1 g/dL (32.0-37.0); MCV 87.2 fL (80.0-97.0); Mean Platelet Volume 10.5 fL (9.5-12.2); Monocytes # (A) 0.67 X 10*3/uL (0.20-1.00); Monocytes % (A) 13.1 %; NRBC Per 100 WBC 0 /100 WBCS (0.0-0.0); Neutrophils # (A) 3.04 X 10*3/uL (1.80-7.70); Neutrophils % (A) 59.6 %; Platelet Count 255 X 10*3/uL (140-440); RBC 4.46 X 10*6/uL (4.40-5.60); RDW 12.8 % (11.5-14.5)
[2022-10-09 23:29] LABS: % Iron Saturation 9.48 (15.00-50.00); ALT 17 U/L (10-49); AST 26 U/L (14-35); African American GFR (CKD) 78.7 (60.0-200.0); Albumin/Globulin Ratio 1.93 (1.60-3.17); Alkaline Phosphatase 66 U/L (41-126); BUN/Creat Ratio 14.46 Ratio (12.00-20.00); Blood Urea Nitrogen 17.5 mg/dL (9.0-27.0); Calcium 9.2 mg/dL (8.7-10.3); Carbon Dioxide 22.4 mmol/L (20.0-27.5); Chloride 108 mmol/L (96-109); Chol/HDL Ratio 3.17 Ratio; Ferritin 34.9 ng/mL (22.0-322.0); Globulin 2.1 g/dL (1.6-3.3); Glucose 103 mg/dL (70-110); Iron 38 ug/dL (65-175); LDL Cholesterol,Calculated 103.1 mg/dL (0.0-131.0); Non-African American GFR(CKD) 67.9 (60.0-200.0); Potassium 4.4 mmol/L (3.5-5.5); Sodium 143 mmol/L (135-145); Total Iron Binding Capacity 402 ug/dL (228-460)
== END | disposition home or self-care (01) ==
LOC: LABWHC1 13:35
PROVIDERS: ATTEND Internal Medicine
DX: E78.2 Mixed hyperlipidemia (principal); K21.00 Gastro-esophageal reflux disease with esophagitis, without bleeding; E53.8 Deficiency of other specified B group vitamins; D50.0 Iron deficiency anemia secondary to blood loss (chronic); F41.9 Anxiety disorder, unspecified; N40.0 Benign prostatic hyperplasia without lower urinary tract symptoms
CPT/HCPCS: 36415; 80053; 80061; 82607; 82728; 83036; 83540; 83550; 84153; 84439; 84443; 85025; 87086

== ENCOUNTER → 2023-01-09 | Day surgery (SDC) | payer MEDICAID ==
[~2023-01-09] MED LIST changes: -DEXAMETHASONE SOD PHOSPHATE 10 MG/ML 1 ML VIAL IV ONE; +LACTATED RINGERS 1,000 ML IV SCH; +LIDOCAINE 1% (10MG/ML) FOR IV START INTRADERMA PRN; -LIDOCAINE 1% 20 ML VIAL (10MG/ML) FOR IV START INTRADERMA PRN; -MIDAZOLAM 2 MG/2 ML VIAL IV PRN; -ONDANSETRON 4 MG/2 ML VIAL IVP ONE; +ONDANSETRON 4 MG/2 ML VIAL IVP PRN; +PROPOFOL 10 MG/ML 20 ML VIAL IV ONE; -SCOPOLAMINE 1.5MG/72HR PATCH TRANSDERM ONE; -ceFAZolin IN SWFI 2 GM/20 ML SYRINGE IVP ONE
[2023-01-09 10:36] VITALS: RESP 16; TEMP 96.9
--- NOTE | 2023-01-09 11:00 | P.GSHP ---
History of Present Illness H&P Date: 01/09/23 Chief Complaint: Colon cancer screening 52-year-old male here for colonoscopy. Patient here for screening reasons. Patient apparently in the late had a perforated peptic ulcer and during that lengthy hospitalization ended up having colonic resection with mucous fistula and he says colostomy. The ostomy is on the right side of his abdomen. This may represent an ileostomy. He had a CAT scan in April of last year and it does look like this may represent some residual ascending colon coming out to the skin surface. No bowel complaints. Past Medical History Past Medical History: GI Bleed Additional Past Medical History / Comment(s): past hx. peptic ulcer-6 bleeding ulcers per pt., states takes norco for abd. 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 Date of last positivie culture/infection: 10/13/18 MDRO Source:: VRE KNEE Past Surgical History: Bowel Resection, Orthopedic Surgery Additional Past Surgical History / Comment(s): colostomy, arthroscopies gildardo knees, right hand ganglion cyst removed Past Anesthesia/Blood Transfusion Reactions: No Reported Reaction Smoking Status: Never smoker - Past Family History Mother Family Medical History: No Reported History Medications and Allergies Home Medications Medication Instructions Recorded Confirmed Type Zolpidem Tartrate 10 mg PO HS PRN 05/12/15 05/13/22 History ALPRAZolam [Xanax] 0.5 mg PO BID PRN 01/04/23 01/09/23 History Flaxseed 1 tab PO DAILY 01/04/23 History HYDROcodone/APAP 10-325MG [[place] 1 tab PO Q8H PRN 01/04/23 01/09/23 History 10-325] Iron 18 mg PO DAILY 01/04/23 01/04/23 History Potassium Citrate 99 mg PO DAILY 01/04/23 01/04/23 History Ubidecarenone [Co Q-10] 300 mg PO DAILY 01/04/23 01/04/23 History Zolpidem [Ambien] 10 mg PO HS PRN 01/04/23 01/04/23 History Allergies Allergy/AdvReac Type Severity Reaction Status Date / Time No Known Allergies Allergy Verified 01/09/23 10:16 Surgical - Exam Vital Signs Temp Pulse Resp BP Pulse Ox 96.9 F L 66 16 136/87 97 01/09/23 10:35 01/09/23 10:35 01/09/23 10:35 01/09/23 10:35 01/09/23 10:35 Physical exam: General: Well-developed, well-nourished HEENT: Normocephalic, sclerae nonicteric Abdomen: Nontender, nondistended, ostomy right-sided with mucous fistula on the left Extremities: No edema Neuro: Alert and oriented Assessment and Plan (1) Colon cancer screening Narrative/Plan: Will proceed with colonoscopy at this time. Current Visit: Yes Status: Acute Code(s): Z12.11 - ENCOUNTER FOR SCREENING FOR MALIGNANT NEOPLASM OF COLON SNOMED Code(s): 815154249
--- NOTE | 2023-01-09 11:14 | P.PCN ---
Date of Procedure: 01/09/23 Procedure(s) Performed: PREOPERATIVE DIAGNOSIS: Colon cancer screening with history of previous bowel resection POSTOPERATIVE DIAGNOSIS: Disuse colitis, stomal stricture PROCEDURE: Colonoscopy through anus and mucous fistula, ileoscopy with gastroscope ANESTHESIA: MAC SURGEON: Nitish Conteh M.D. SPECIMENS: None ENDOSCOPIC PROCEDURE: The patient was placed on the endoscopy table in the left decubitus position. The Olympus pediatric colonoscope was inserted into the anus and passed under direct visualization to the descending colon. The patient had evidence of disuse colitis. There was relative lack of distensibility of the colon with some luminal narrowing throughout. I could not advance more proximal than the descending colon given tortuosity and the narrowing seen. There were no neoplastic or polypoid lesions throughout the descending sigmoid and rectum. The same pediatric colonoscope was then inserted into the mucous fistula in the left upper quadrant and passed about 10 cm. We then reached an area of tortuosity and I could not advance the scope more. Nothing appeared neoplastic however. The pediatric colonoscope was then initially tried to advance into the right-sided stoma. There was a narrowing at the stoma and a pediatric colonoscope was used instead. With mild resistance we were able to pass the scope through the stoma into the bowel. This appeared to be ileum. No abnormalities were seen. The scope was withdrawn. The patient was taken to the recovery room in stable condition per anesthesia guidelines. RECOMMENDATIONS: Patient with stricture at the stoma the does not appear to be symptomatic. Patient apparently previously was not interested in ostomy reve rsal. Findings will be discussed with the patient. Would not recommend any further screening exams as I am not confident that we can fully evaluate his residual colon endoscopically in a safe manner.
[2023-01-09 11:47] VITALS: BP 130/86; PULSE 67
== END ==
LOC: ORWHC2ENDO 10:03 → MERGE 10:40
PROVIDERS: ATTEND Surgery
DX: Z12.11 Encounter for screening for malignant neoplasm of colon (principal); K52.9 Noninfective gastroenteritis and colitis, unspecified; Z93.3 Colostomy status; Z79.899 Other long term (current) drug therapy
CPT/HCPCS: 44380; J2704

== ENCOUNTER → 2023-01-19 | Outpatient (CLI) | payer MEDICAID ==
[2023-01-19 21:36] LABS: ALT 16 U/L (10-49); AST 28 U/L (14-35); Albumin 4.6 d/dL (3.8-4.9); Albumin/Globulin Ratio 2.09 Ratio (1.60-3.17); Alkaline Phosphatase 71 U/L (41-126); BUN/Creat Ratio 19.92 Ratio (12.00-20.00); Blood Urea Nitrogen 23.9 mg/dL (9.0-27.0); Calcium 9.6 mg/dL (8.7-10.3); Carbon Dioxide 23.4 mmol/L (21.6-31.8); Chloride 105 mmol/L (96-109); Ferritin 32.3 ng/mL (22.0-322.0); Globulin 2.2 d/dL (1.6-3.3); Glucose 106 mg/dL (70-110); Iron 50 UG/DL (65-175); LDH 200 U/L (120-246); Potassium 4.1 mmol/L (3.5-5.5); Sodium 142 mmol/L (135-145); Total Bilirubin 0.3 mg/dL (0.3-1.2); Total Iron Binding Capacity 420 UG/DL (228-460); Total Protein 6.8 d/dL (6.2-8.2)
== END | disposition home or self-care (01) ==
LOC: LABWHC1 14:56
PROVIDERS: ATTEND Internal Medicine
DX: E53.8 Deficiency of other specified B group vitamins (principal); D50.0 Iron deficiency anemia secondary to blood loss (chronic)
CPT/HCPCS: 36415; 80053; 82607; 82728; 82746; 83540; 83550; 83615; 85045

== ENCOUNTER → 2023-09-05 | Outpatient (CLI) | payer BC ==
[2023-09-05 16:55] LABS: Basophils # (A) 0.04 X 10*3/uL (0.00-0.10); Basophils % (A) 0.8 %; Eosinophils # (A) 0.28 X 10*3/uL (0.04-0.35); Eosinophils % (A) 5.7 %; HGB 11.1 g/dL (13.0-17.0); Lymphocytes # (A) 1.01 X 10*3/uL (0.90-5.00); Lymphocytes % (A) 20.6 %; MCH 26.7 pg (27.0-32.0); MCHC 30.8 g/dL (32.0-37.0); MCV 86.7 FL (80.0-97.0); Monocytes # (A) 0.52 X 10*3/uL (0.20-1.00); Monocytes % (A) 10.6 %; NRBC Per 100 WBC 0 X 10*3/uL (0.00-0.01); Neutrophils # (A) 3.05 X 10*3/uL (1.80-7.70); Neutrophils % (A) 62.1 %; Platelet Count 288 X 10*3/uL (140-440); RBC 4.15 X 10*6/uL (4.40-5.60); RDW 13.2 % (11.5-14.5); WBC 4.91 X 10*3/uL (4.50-10.00)
[2023-09-05 17:45] LABS: % Iron Saturation 7.67 (15.00-50.00); ALT 12 U/L (10-49); AST 23 U/L (14-35); Albumin/Globulin Ratio 2.22 Ratio (1.60-3.17); Alkaline Phosphatase 60 U/L (41-126); Blood Urea Nitrogen 19.5 mg/dL (9.0-27.0); Calcium 9.3 mg/dL (8.7-10.3); Carbon Dioxide 25.6 mmol/L (21.6-31.8); Chloride 106 mmol/L (96-109); Chol/HDL Ratio 3.12 Ratio; Ferritin 51.7 ng/mL (22.0-322.0); Globulin 1.8 g/dL (1.6-3.3); Glucose 96 mg/dL (70-110); Iron 29 UG/DL (65-175); LDL Cholesterol,Calculated 104.2 mg/dL (0.0-131.0); Potassium 4.3 mmol/L (3.5-5.5); Sodium 141 mmol/L (135-145); Total Bilirubin 0.3 mg/dL (0.3-1.2); Total Iron Binding Capacity 378 UG/DL (228-460); Total Protein 5.8 g/dL (6.2-8.2)
[2023-09-06 14:51] LABS: Comprehensive Drug Screen Ur SeeBelow; Creatinine, Random Urine 234 mg/dL
== END | disposition home or self-care (01) ==
LOC: LABWHC1 12:01
PROVIDERS: ATTEND Internal Medicine
DX: E78.2 Mixed hyperlipidemia (principal); E53.8 Deficiency of other specified B group vitamins; D50.0 Iron deficiency anemia secondary to blood loss (chronic); Z79.899 Other long term (current) drug therapy
CPT/HCPCS: 36415; 80053; 80061; 80307; 80377; 82607; 82728; 82746; 83036; 83540; 83550; 84443; 85025

== ENCOUNTER 2024-04-02 09:21 | Emergency (ER) | payer BC ==
[2024-04-02 09:28] VITALS: BP 130/94; PULSE 84; RESP 18; TEMP 97
--- NOTE | 2024-04-02 09:40 | ED ---
Nausea/Vomiting/Diarrhea HPI - General Chief complaint: Nausea/Vomiting/Diarrhea Stated complaint: Dehydration Time Seen by Provider: 04/02/24 09:29 Source: patient, RN notes reviewed Mode of arrival: wheelchair Limitations: no limitations - History of Present Illness Initial comments: 43-year-old male presents emergency department chief complaint of nausea vomiting diarrhea. Symptoms started approximate 24 hours ago. He states he feels very dehydrated. Patient states he has a colostomy that is showing high output at this time he states he has a colostomy from prior peptic ulcer disease. Patient states she just feels very dehydrated, weak feeling patient denies any fevers or chills no sick contacts no chest pain or shortness of breath. - Related Data Home Medications Medication Instructions Recorded Confirmed ALPRAZolam [Xanax] 0.5 mg PO BID PRN 01/04/23 04/02/24 HYDROcodone/APAP 10-325MG [[place] 1 tab PO Q8H PRN 01/04/23 04/02/24 10-325] Zolpidem [Ambien] 10 mg PO HS PRN 01/04/23 04/02/24 Cyanocobalamin [Vitamin B-12 1,000 mcg SQ QMONTHLY 04/02/24 04/02/24 Injection] Previous Rx's Medication Instructions Recorded Ondansetron Odt [Zofran Odt] 4 mg PO Q8HR PRN #14 tab 04/02/24 Allergies Allergy/AdvReac Type Severity Reaction Status Date / Time No Known Allergies Allergy Verified 04/02/24 10:02 Review of Systems ROS Statement: Those systems with pertinent positive or pertinent negative responses have been documented in the HPI. ROS Other: All systems not noted in ROS Statement are negative. Past Medical History Past Medical History: GERD/Reflux, GI Bleed Additional Past Medical History / Comment(s): past hx. peptic ulcer-6 bleeding ulcers per pt., states takes norco for abd. 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, VRE Date of last positivie culture/infection: 10/13/18 MDRO Source:: VRE KNEE Past Surgical History: Bowel Resection, Orthopedic Surgery Additional Past Surgical History / Comment(s): colostomy, arthroscopies gildardo knees, right hand ganglion cyst removed Past Anesthesia/Blood Transfusion Reactions: No Reported Reaction Past Psychological History: Anxiety Smoking Status: Never smoker Past Alcohol Use History: None Reported Past Drug Use History: None Reported - Past Family History Mother Family Medical History: No Reported History General Exam Limitations: no limitations General appearance: alert, in no apparent distress Head exam: Present: atraumatic, normocephalic, normal inspection Neck exam: Present: normal inspection, full ROM. Absent: tenderness, meningismus, lymphadenopathy Respiratory exam: Present: normal lung sounds bilaterally. Absent: respiratory distress, wheezes, rales, rhonchi, stridor Cardiovascular Exam: Present: regular rate, normal rhythm, normal heart sounds. Absent: systolic murmur, diastolic murmur, rubs, gallop, clicks GI/Abdominal exam: Present: soft, tenderness (Minimal), normal bowel sounds, other (Colostomy noted). Absent: distended, guarding, rebound, rigid Course Vital Signs 04/02/24 09:23 Temperature 97 F L Pulse Rate 84 Respiratory 18 Rate Blood Pressure 130/94 O2 Sat by Pulse 98 Oximetry Medical Decision Making - Medical Decision Making Was pt. sent in by a medical professional or institution (, PA, ABA THERAPIST, urgent care, hospital, or [facility]...) When possible be specific @ -No Did you speak to anyone other than the patient for history (EMS, parent, family, police, friend...)? What history was obtained from this source @ -No Did you review nursing and triage notes (agree or disagree)? Why? @ -I reviewed and agree with nursing and triage notes Were old charts reviewed (outside hosp., previous admission, EMS record, old EKG, old radiological studies, urgent care reports/EKG's, [facility] records)? Report findings @ -No old charts were reviewed Differential Diagnosis (chest pain, altered mental status, abdominal pain women, abdominal pain men, vaginal bleeding, weakness, fever, dyspnea, syncope, headache, dizziness, GI bleed, back pain, seizure, CVA, palpatations, mental health, musculoskeletal)? @ -Differential Abdominal Pain Men: Appendicitis, cholecystitis, diverticulosis, ischemic bowel, pancreatitis, hepatitis, UTI, gastroenteritis, AAA, incarcerated hernia, bowel obstruction, constipation, inflammatory bowel, hepatitis, peptic ulcer disease, splenic infarction, perforated viscus, testicular torsion, this is not meant to be an all-inclusive list EKG interpreted by me (3pts min.). @ -None X-rays interpreted by me (1pt min.). @ -None done CT interpreted by me (1pt min.). @ -None done U/S interpreted by me (1pt. min.). @ -None done What testing was considered but not performed or refused? (CT, X-rays, U/S, labs)? Why? @ -None What meds were considered but not given or refused? Why? @ -None Did you discuss the management of the patient with other professionals (professionals i.e. , PA, ABA THERAPIST, lab, RT, psych nurse, social services, despatch clerk, teacher, contract officer, watch case polisher)? Give summary @ -No Was smoking cessation discussed for >3mins.? @ -No Was critical care preformed (if so, how long)? @ -No Were there social determinants of health that impacted care today? How? (Homelessness, low income, unemployed, alcoholism, drug addiction, transportation, low edu. Level, literacy, decrease access to med. care, long term, rehab)? @ -No Was there de-escalation of care discussed even if they declined (Discuss DNR or withdrawal of care, Hospice)? DNR status @ -No What co-morbidities impacted this encounter? (DM, HTN, Smoking, COPD, CAD, Cancer, CVA, ARF, Chemo, Hep., AIDS, mental health diagnosis, sleep apnea, morbid obesity)? @ -None Was patient admitted / discharged? Hospital course, mention meds given and route, prescriptions, significant lab abnormalities, going to OR and other pertinent info. @ -Discharge patient feels greatly improved with IV fluids and antiemetics. Patient feels comfortable discharge with antiemetics and close follow-up return parens were discussed Undiagnosed new problem with uncertain prognosis? @ -No Drug Therapy requiring intensive monitoring for toxicity (Heparin, Nitro, Insulin, Cardizem)? @ -No Were any procedures done? @ -No Diagnosis/symptom? @ -Nausea vomiting, dehydration Acute, or Chronic, or Acute on Chronic? @ -Acute Uncomplicated (without systemic symptoms) or Complicated (systemic symptoms)? @ -Complicated Side effects of treatment? @ -No Exacerbation, Progression, or Severe Exacerbation? @ -No Poses a threat to life or bodily function? How? (Chest pain, [place], [place], pneumonia, PE, COPD, DKA, ARF, appy, cholecystitis, CVA, Diverticulitis, Homicidal, Suicidal, threat to staff... and all critical care pts) @ -No - Lab Data Result diagrams: 04/02/24 09:43 04/02/24 09:43 Lab Results 04/02/24 04/02/24 Range/Units 09:43 09:43 WBC 8.6 (3.8-10.6) k/uL RBC 5.67 (4.30-5.90) m/uL Hgb 15.2 (13.0-17.5) gm/dL Hct 48.3 (39.0-53.0) % MCV 85.3 (80.0-100.0) fL MCH 26.9 (25.0-35.0) pg MCHC 31.5 (31.0-37.0) g/dL RDW 13.0 (11.5-15.5) % Plt Count 294 (150-450) k/uL MPV 6.8 Neutrophils % 77 % Lymphocytes % 11 % Monocytes % 9 % Eosinophils % 1 % Basophils % 0 % Neutrophils # 6.6 (1.3-7.7) k/uL Lymphocytes # 0.9 L (1.0-4.8) k/uL Monocytes # 0.8 (0-1.0) k/uL Eosinophils # 0.1 (0-0.7) k/uL Basophils # 0.0 (0-0.2) k/uL Hypochromasia Slight Sodium 140 (137-145) mmol/L Potassium 3.7 (3.5-5.1) mmol/L Chloride 102 (98-107) mmol/L Carbon Dioxide 27 (22-30) mmol/L Anion Gap 11 mmol/L BUN 30 H (9-20) mg/dL Creatinine 1.09 (0.66-1.25) mg/dL Est GFR (CKD-EPI)AfAm 89 (>60 ml/min/1.73 sqM) Est GFR (CKD-EPI)NonAf 77 (>60 ml/min/1.73 sqM) Glucose 113 H (74-99) mg/dL Calcium 10.3 H (8.4-10.2) mg/dL Magnesium 2.2 (1.6-2.3) mg/dL Total Bilirubin 1.2 (0.2-1.3) mg/dL AST 80 H (17-59) U/L ALT 27 (4-49) U/L Alkaline Phosphatase 58 (38-126) U/L Total Protein 7.6 (6.3-8.2) g/dL Albumin 4.8 (3.5-5.0) g/dL Lipase 179 (23-300) U/L Disposition Clinical Impression: Dehydration, Nausea & vomiting Disposition: HOME SELF-CARE Condition: Stable Instructions (If sedation given, give patient instructions): Acute Nausea and Vomiting (ED) Additional Instructions: Please return to the Emergency Department if symptoms worsen or any other concerns. Prescriptions: Ondansetron Odt [Zofran Odt] 4 mg PO Q8HR PRN #14 tab PRN Reason: Nausea Is patient prescribed a controlled substance at d/c from ED?: No Referrals: Isaiah Maldonado MD [Primary Care Provider] - 1-2 days Time of Disposition: 12:58
[2024-04-02] MEDS: SODIUM CHLORIDE 0.9% 2,000 ML IV STA (10:30)
[2024-04-02] MEDS: ONDANSETRON 4 MG/2 ML VIAL IVP STA (10:30)
[2024-04-02 10:39] LABS: Basophils % (A) 0 %; Eosinophils # (A) 0.1 k/uL (0-0.7); Eosinophils % (A) 1 %; HCT 48.3 % (39.0-53.0); HGB 15.2 gm/dL (13.0-17.5); Hypochromasia Slight; Lymphocytes # (A) 0.9 k/uL (1.0-4.8); Lymphocytes % (A) 11 %; MCH 26.9 pg (25.0-35.0); MCHC 31.5 g/dL (31.0-37.0); MCV 85.3 fL (80.0-100.0); Mean Platelet Volume 6.8; Monocytes # (A) 0.8 k/uL (0-1.0); Monocytes % (A) 9 %; Neutrophils # (A) 6.6 k/uL (1.3-7.7); Neutrophils % (A) 77 %; Platelet Count 294 k/uL (150-450); RBC 5.67 m/uL (4.30-5.90); WBC 8.6 k/uL (3.8-10.6)
[2024-04-02 10:48] LABS: ALT 27 U/L (4-49); AST 80 U/L (17-59); African American GFR (CKD) 89 (>60 ml/min/1.73 sqM); Albumin 4.8 g/dL (3.5-5.0); Alkaline Phosphatase 58 U/L (38-126); Anion Gap 11 mmol/L; Blood Urea Nitrogen 30 mg/dL (9-20); Calcium 10.3 mg/dL (8.4-10.2); Carbon Dioxide 27 mmol/L (22-30); Chloride 102 mmol/L (98-107); Glucose 113 mg/dL (74-99); Lipase 179 U/L (23-300); Magnesium 2.2 mg/dL (1.6-2.3); Non-African American GFR(CKD) 77 (>60 ml/min/1.73 sqM); Potassium 3.7 mmol/L (3.5-5.1); Sodium 140 mmol/L (137-145); Total Bilirubin 1.2 mg/dL (0.2-1.3); Total Protein 7.6 g/dL (6.3-8.2)
[2024-04-02] MEDS: HYDROmorphone 0.5 MG/0.5 ML SYRINGE IVP STA (11:50)
== END 2024-04-02 14:20 | disposition home or self-care (01) ==
LOC: EC 09:21
DX: E86.0 Dehydration (principal)
CPT/HCPCS: 36415; 80053; 83690; 83735; 85025; 96361; 96374; 96375; 99284

== ENCOUNTER → 2024-07-08 | Outpatient (CLI) | payer BC ==
[2024-07-08 15:03] LABS: Basophils # (A) 0.05 X 10*3/uL (0.00-0.10); Basophils % (A) 0.9 %; Eosinophils # (A) 0.39 X 10*3/uL (0.04-0.35); Eosinophils % (A) 7.2 %; HCT 38.3 % (39.6-50.0); HGB 11.7 g/dL (13.0-17.0); Lymphocytes # (A) 1.12 X 10*3/uL (0.90-5.00); Lymphocytes % (A) 20.6 %; MCH 26.4 pg (27.0-32.0); MCHC 30.5 g/dL (32.0-37.0); MCV 86.5 FL (80.0-97.0); Mean Platelet Volume 9.9 FL (9.5-12.2); Monocytes # (A) 0.71 X 10*3/uL (0.20-1.00); Monocytes % (A) 13.1 %; NRBC Per 100 WBC 0 X 10*3/uL (0.00-0.01); Neutrophils # (A) 3.15 X 10*3/uL (1.80-7.70); Neutrophils % (A) 57.8 %; Platelet Count 276 X 10*3/uL (140-440); RBC 4.43 X 10*6/uL (4.40-5.60); RDW 13.9 % (11.5-14.5); WBC 5.44 X 10*3/uL (4.50-10.00)
[2024-07-08 15:40] LABS: % Iron Saturation 34.43 (15.00-50.00); Chol/HDL Ratio 3.83 Ratio; Creatine Kinase 307 U/L (35-257); Ferritin 42.6 ng/mL (22.0-322.0); Iron 136 UG/DL (65-175); LDL Cholesterol,Calculated 97.9 mg/dL (0.0-131.0); Magnesium 1.9 mg/dL (1.5-2.4); PSA Annual Screen 0.581 ng/mL (0.000-4.000); Total Iron Binding Capacity 395 UG/DL (228-460)
== END | disposition home or self-care (01) ==
LOC: LABWHC1 12:04
PROVIDERS: ATTEND Internal Medicine
DX: Z00.00 Encounter for general adult medical examination without abnormal findings (principal); Z12.5 Encounter for screening for malignant neoplasm of prostate; E78.2 Mixed hyperlipidemia; D50.0 Iron deficiency anemia secondary to blood loss (chronic); K21.00 Gastro-esophageal reflux disease with esophagitis, without bleeding; E53.8 Deficiency of other specified B group vitamins; N40.0 Benign prostatic hyperplasia without lower urinary tract symptoms
CPT/HCPCS: 80061; 84443; 82607; 82728; 82550; 82746; 83540; 83550; 83735; 85025; 83036; 36415; G0103

== ENCOUNTER 2024-10-27 11:38 | Emergency (ER) | payer BC ==
[2024-10-27 11:46] VITALS: RESP 18
--- NOTE | 2024-10-27 13:01 | ED ---
Nausea/Vomiting/Diarrhea HPI - General Chief complaint: Nausea/Vomiting/Diarrhea Stated complaint: Nausea Time Seen by Provider: 10/27/24 12:08 Source: patient, RN notes reviewed Mode of arrival: ambulatory Limitations: no limitations - History of Present Illness Initial comments: This is a 54-year-old male who presents to the emergency department for nausea and vomiting. States that it started yesterday and he feels dehydrated. Denies any abdominal pain. He does have pain in the left lower back which he believes is from all of the vomiting. He last threw up yesterday. Denies any blood in his stool or vomit. He has an ostomy bag and denies any issues with output. States that every 6 to 8 months he tends to become sick when he does not eat the right things and then feels very dehydrated. Denies any fevers/chills or sick contacts. MD complaint: nausea, vomiting - Related Data Home Medications Medication Instructions Recorded Confirmed ALPRAZolam [Xanax] 0.5 mg PO BID PRN 01/04/23 10/27/24 HYDROcodone/APAP 10-325MG [[place] 1 tab PO Q6H PRN 01/04/23 10/27/24 10-325] Zolpidem [Ambien] 10 mg PO HS PRN 01/04/23 10/27/24 Cyanocobalamin [Vitamin B-12 1,000 mcg SQ QMONTHLY 04/02/24 10/27/24 Injection] Previous Rx's Medication Instructions Recorded Ondansetron Odt [Zofran Odt] 4 mg PO Q8HR PRN #15 tab 10/27/24 Allergies Allergy/AdvReac Type Severity Reaction Status Date / Time No Known Allergies Allergy Verified 10/27/24 16:35 Review of Systems ROS Statement: Those systems with pertinent positive or pertinent negative responses have been documented in the HPI. ROS Other: All systems not noted in ROS Statement are negative. Past Medical History Past Medical History: GERD/Reflux, GI Bleed Additional Past Medical History / Comment(s): past hx. peptic ulcer-6 bleeding ulcers per pt., states takes norco for abd. 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, VRE Date of last positivie culture/infection: 10/13/18 MDRO Source:: VRE KNEE Past Surgical History: Bowel Resection, Orthopedic Surgery Additional Past Surgical History / Comment(s): colostomy, arthroscopies gildardo knees, right hand ganglion cyst removed Past Anesthesia/Blood Transfusion Reactions: No Reported Reaction Past Psychological History: Anxiety Smoking Status: Never smoker Past Alcohol Use History: None Reported Past Drug Use History: None Reported - Past Family History Mother Family Medical History: No Reported History General Exam Limitations: no limitations General appearance: alert, in no apparent distress Head exam: Present: atraumatic, normocephalic, normal inspection Respiratory exam: Present: normal lung sounds bilaterally. Absent: respiratory distress, wheezes, rales, rhonchi, stridor Cardiovascular Exam: Present: regular rate, normal rhythm GI/Abdominal exam: Present: soft. Absent: distended, tenderness Neurological exam: Present: alert, oriented X3, CN II-XII intact Psychiatric exam: Present: normal affect, normal mood Skin exam: Present: warm, dry, intact, normal color. Absent: rash Course Vital Signs 10/27/24 11:45 Temperature 97.7 F Pulse Rate 67 Respiratory 18 Rate Blood Pressure 139/84 O2 Sat by Pulse 99 Oximetry Medical Decision Making - Medical Decision Making This is a 54-year-old male who presents to the emergency department for nausea and vomiting. Was pt. sent in by a medical professional or institution? @ -No Did you speak to anyone other than the patient for history? @ -No Did you review nursing and triage notes? @ -Yes, and I agree, it is accurate with regards to the patient's symptoms. Were old charts reviewed? @ -Lab work from 07/08/24 demonstrating a hemoglobin of 11.7. Differential Diagnosis? @ -Differential Nausea and Vomiting: Gastroenteritis, cholecystitis, appendicitis, pancreatitis, migraine, benign positional vertigo, food borne illness, pyelonephritis, irritable bowel syndrome, influenza, Covid, GERD, incarcerated hernia, intestinal obstruction, this is not meant to be an all-inclusive list. EKG interpreted by me (3pts min.)? @ -Not obtained X-rays interpreted by me (1pt min.)? @ -Not obtained CT interpreted by me (1pt min.)? @ -Not obtained U/S interpreted by me (1pt. min.)? @ -Not obtained What testing was considered but not performed? (CT, X-rays, U/S, labs)? Why? @ -None What meds were considered but not given? Why? @ -None Did you discuss the management of the patient with other professionals? @ -Yes, Dr. Maldonado, who advised that the patient can follow-up outpatient since he is asymptomatic with regards to the anemia. Did you reconcile home meds? @ -No Was smoking cessation discussed for >3mins.? @ -No Was critical care preformed (if so, how long)? @ -No Were there social determinants of health that impacted care today? How? (Homelessness, low income, unemployed, alcoholism, drug addiction, transp ortation, low edu. Level, literacy, decrease access to med. care, long-term, rehab)? @ -No Was there de-escalation of care discussed even if they declined? (Discuss DNR or withdrawal of care, Hospice)? @ -No What co-morbidities impacted this encounter? (DM, HTN, Smoking, COPD, CAD, Cancer, CVA, Hep., AIDS, mental health diagnosis, sleep apnea, morbid obesity)? @ -Colostomy, GERD Was patient admitted / discharged? @ -Discharged. Lab work demonstrates a hemoglobin of 7.4 which has decreased when compared with a hemoglobin of 11.7 on 07/08. WBCs and MCV are also decreased similar to a pancytopenia, however his platelet levels are within normal limits. Lactic acid mildly elevated at 2.2. Urinalysis negative for signs of infection. He denies any blood in his stool or vomit. He advised that he occasionally gets irritation around his ostomy site that then starts to bleed, which has been an ongoing issue for him. Case discussed with his PCP with regards to the anemia, and he advised that he can follow-up outpatient as scheduled this . His symptoms were otherwise well-controlled in the emergency department and he was discharged home in stable condition. Zofran prescribed for any additional nausea. Case discussed with ED attending Dr. Stein. Return precautions reviewed in depth, the patient is instructed to return to the emergency department with any new, worsening, or concerning symptoms. Patient verbalized understanding. Undiagnosed new problem with uncertain prognosis? @ -None Drug Therapy requiring intensive monitoring for toxicity (Heparin, Nitro, Insulin, Cardizem)? @ -None Were any procedures done? @ -None Diagnosis/symptom? @ -Nausea and vomiting Acute, or Chronic, or Acute on Chronic? @ -Acute Uncomplicated (without systemic symptoms) or Complicated (systemic symptoms)? @ -Uncomplicated Side effects of treatment? @ -None Exacerbation, Progression, or Severe Exacerbation] @ -Not applicable Poses a threat to life or bodily function? @ -No - Lab Data Result diagrams: 10/27/24 12:26 10/27/24 12: Lab Results 10/27/24 10/27/24 10/27/24 Range/Units 12: 12: 12: WBC 3.91 L (4.50-10.00) 10*3/uL RBC 3.29 L (4.40-5.60) 10*6/uL Hgb 7.4 L (13.0-17.0) g/dL Hct 25.3 L (39.6-50.0) % MCV 76.9 L (80.0-97.0) fL MCH 22.5 L (27.0-32.0) pg MCHC 29.2 L (32.0-37.0) g/dL Plt Count 391 (140-440) 10*3/uL MPV 8.7 L (9.5-12.2) fL Immature Gran % (Auto) 0.8 % Neutrophils % 67.8 % Lymphocytes % 11.5 % Monocytes % 19.4 % Eosinophils % 0.0 % Basophils % 0.5 % Immature Gran # 0.03 (0.00-0.04) 10*3/uL Neutrophils # 2.65 (1.80-7.70) 10*3/uL Lymphocytes # 0.45 L (0.90-5.00) 10*3/uL Monocytes # 0.76 (0.20-1.00) 10*3/uL Eosinophils # 0.00 L (0.04-0.35) 10*3/uL Basophils # 0.02 (0.00-0.10) 10*3/uL Sodium 137 (137-145) mmol/L Potassium 3.6 (3.5-5.1) mmol/L Chloride 102 (98-107) mmol/L Carbon Dioxide 25 (22-30) mmol/L Anion Gap 10 mmol/L BUN 14 (9-20) mg/dL Creatinine 0.79 (0.66-1.25) mg/dL Est GFR (CKD-EPI)AfAm >90 (>60 ml/min/1.73 sqM) Est GFR (CKD-EPI)NonAf >90 (>60 ml/min/1.73 sqM) Glucose 120 H (74-99) mg/dL Lactic Ac Sepsis Rflx Plasma Lactic Acid Mike (0.7-2.0) mmol/L Calcium 9.6 (8.4-10.2) mg/dL Total Bilirubin 0.8 (0.2-1.3) mg/dL AST 24 (17-59) U/L ALT 14 (4-49) U/L Alkaline Phosphatase 68 (38-126) U/L Total Protein 6.6 (6.3-8.2) g/dL Albumin 4.0 (3.5-5.0) g/dL Amylase 85 (30-110) U/L Lipase 113 (23-300) U/L Urine Color Light Yellow Urine Appearance Clear (Clear) Urine pH 6.5 (5.0-8.0) Ur Specific [place] 1.025 (1.001-1.035) Urine Protein 3+ H (Negative) Urine Glucose (UA) Negative (Negative) Urine Ketones 2+ H (Negative) Urine Blood Trace H (Negative) Urine Nitrite Negative (Negative) Urine Bilirubin Negative (Negative) Urine Urobilinogen <2.0 (<2.0) mg/dL Ur Leukocyte Esterase Negative (Negative) Urine RBC 3 (0-5) /hpf Urine WBC 1 (0-5) /hpf Urine Bacteria Rare H (None) /hpf Urine Mucus Moderate H (None) /hpf 10/27/24 10/27/24 Range/Units 12:26 14:28 WBC (4.50-10.00) 10*3/uL RBC (4.40-5.60) 10*6/uL Hgb (13.0-17.0) g/dL Hct (39.6-50.0) % MCV (80.0-97.0) fL MCH (27.0-32.0) pg MCHC (32.0-37.0) g/dL Plt Count (140-440) 10*3/uL MPV (9.5-12.2) fL Immature Gran % (Auto) % Neutrophils % % Lymphocytes % % Monocytes % % Eosinophils % % Basophils % % Immature Gran # (0.00-0.04) 10*3/uL Neutrophils # (1.80-7.70) 10*3/uL Lymphocytes # (0.90-5.00) 10*3/uL Monocytes # (0.20-1.00) 10*3/uL Eosinophils # (0.04-0.35) 10*3/uL Basophils # (0.00-0.10) 10*3/uL Sodium (137-145) mmol/L Potassium (3.5-5.1) mmol/L Chloride (98-107) mmol/L Carbon Dioxide (22-30) mmol/L Anion Gap mmol/L BUN (9-20) mg/dL Creatinine (0.66-1.25) mg/dL Est GFR (CKD-EPI)AfAm (>60 ml/min/1.73 sqM) Est GFR (CKD-EPI)NonAf (>60 ml/min/1.73 sqM) Glucose (74-99) mg/dL Lactic Ac Sepsis Rflx Y Plasma Lactic Acid Mike 2.2 H* (0.7-2.0) mmol/L Calcium (8.4-10.2) mg/dL Total Bilirubin (0.2-1.3) mg/dL AST (17-59) U/L ALT (4-49) U/L Alkaline Phosphatase (38-126) U/L Total Protein (6.3-8.2) g/dL Albumin (3.5-5.0) g/dL Amylase (30-110) U/L Lipase (23-300) U/L Urine Color Urine Appearance (Clear) Urine pH (5.0-8.0) Ur Specific [place] (1.001-1.035) Urine Protein (Negative) Urine Glucose (UA) (Negative) Urine Ketones (Negative) Urine Blood (Negative) Urine Nitrite (Negative) Urine Bilirubin (Negative) Urine Urobilinogen (<2.0) mg/dL Ur Leukocyte Esterase (Negative) Urine RBC (0-5) /hpf Urine WBC (0-5) /hpf Urine Bacteria (None) /hpf Urine Mucus (None) /hpf Disposition Clinical Impression: Nausea and vomiting, Anemia Disposition: HOME SELF-CARE Instructions (If sedation given, give patient instructions): Acute Nausea and Vomiting (ED) Additional Instructions: Return to the emergency department with any new, worsening, or concerning symptoms. Take the Zofran up to every 8 hours as needed for nausea and vomiting. Slowly advance your diet as tolerated and remain well hydrated. Follow up with your primary care provider as scheduled. Prescriptions: Ondansetron Odt [Zofran Odt] 4 mg PO Q8HR PRN #15 tab PRN Reason: Nausea And Vomiting Is patient prescribed a controlled substance at d/c from ED?: No Referrals: Isaiah Maldonado MD [Primary Care Provider] - 1-2 days Time of Disposition: 16:28
[2024-10-27] MEDS: SODIUM CHLORIDE 0.9% 1,000 ML IV STA (14:02)
[2024-10-27] MEDS: ONDANSETRON 4 MG/2 ML VIAL IVP STA (14:06)
[2024-10-27] MEDS: HYDROmorphone 1 MG/ML 1 ML SYRINGE IVP STA ×2 (14:06→15:50)
[2024-10-27] MEDS: PANTOPRAZOLE 40 MG/10 ML VIAL IVP STA (14:10)
[2024-10-27 14:11] LABS: Basophils # (A) 0.02 10*3/uL (0.00-0.10); Basophils % (A) 0.5 %; HCT 25.3 % (39.6-50.0); HGB 7.4 g/dL (13.0-17.0); Lymphocytes # (A) 0.45 10*3/uL (0.90-5.00); Lymphocytes % (A) 11.5 %; MCH 22.5 pg (27.0-32.0); MCHC 29.2 g/dL (32.0-37.0); MCV 76.9 fL (80.0-97.0); Mean Platelet Volume 8.7 fL (9.5-12.2); Monocytes # (A) 0.76 10*3/uL (0.20-1.00); Monocytes % (A) 19.4 %; Neutrophils # (A) 2.65 10*3/uL (1.80-7.70); Neutrophils % (A) 67.8 %; Platelet Count 391 10*3/uL (140-440); RBC 3.29 10*6/uL (4.40-5.60); WBC 3.91 10*3/uL (4.50-10.00)
[2024-10-27 14:28] LABS: ALT 14 U/L (4-49); AST 24 U/L (17-59); African American GFR (CKD) >90 (>60 ml/min/1.73 sqM); Alkaline Phosphatase 68 U/L (38-126); Amylase 85 U/L (30-110); Anion Gap 10 mmol/L; Blood Urea Nitrogen 14 mg/dL (9-20); Calcium 9.6 mg/dL (8.4-10.2); Carbon Dioxide 25 mmol/L (22-30); Chloride 102 mmol/L (98-107); Glucose 120 mg/dL (74-99); Lipase 113 U/L (23-300); Non-African American GFR(CKD) >90 (>60 ml/min/1.73 sqM); Potassium 3.6 mmol/L (3.5-5.1); Sodium 137 mmol/L (137-145); Total Bilirubin 0.8 mg/dL (0.2-1.3); Total Protein 6.6 g/dL (6.3-8.2)
[2024-10-27] MEDS: SODIUM CHLORIDE 0.9% 1,000 ML IV ONE (15:50)
[2024-10-27 16:05] LABS: Appearance,Urine Clear (Clear); Bacteria,Urine Rare /hpf; Bilirubin,Urine Negative (Negative); Blood,Urine Trace (Negative); Color,Urine Light Yellow; Glucose,Urine (UA) Negative (Negative); Ketones,Urine 2+ (Negative); Leukocyte Esterase,Urine Negative (Negative); Mucus,Urine Moderate /hpf; Nitrite,Urine Negative (Negative); PH, Urine 6.5 (5.0-8.0); Protein,Urine 3+ (Negative); RBC,Urine 3 /hpf (0-5); Specific Gravity,Urine 1.025 (1.001-1.035); Urobilinogen,Urine <2.0 mg/dL (<2.0); WBC,Urine 1 /hpf (0-5)
[2024-10-27] MEDS: ACET/COD 300 MG/30 MG STARTER PACK 6 TAB BTL PO STA (16:49)
[2024-10-27] MEDS: ONDANSETRON 4 MG ODT STARTER PACK 2 TAB BTL PO STA (16:49)
[2024-10-27 16:55] VITALS: BP 129/82; PULSE 72; TEMP 97.9
== END 2024-10-27 17:00 | disposition home or self-care (01) ==
LOC: EC 11:38
DX: R11.2 Nausea with vomiting, unspecified (principal); D64.9 Anemia, unspecified; K21.9 Gastro-esophageal reflux disease without esophagitis; Z93.3 Colostomy status
CPT/HCPCS: 36415; 80053; 82150; 83605; 83690; 85025; 81001; 99284; 96374; 96375 ×2; 96376; 96361 ×3; J2405; J1171; S0119; J2470

== ENCOUNTER 2024-10-28 16:42 | Observation (INO) | payer BC ==
--- NOTE | 2024-10-28 17:49 | ED ---
General Adult HPI - General Chief complaint: Nausea/Vomiting/Diarrhea Stated complaint: Vomiting Time Seen by Provider: 10/28/24 16:55 Source: patient, RN notes reviewed, old records reviewed Mode of arrival: ambulatory Limitations: no limitations - History of Present Illness Initial comments: This is a 54-year-old male who presents to the emergency department stating he has been vomiting since yesterday morning at 2 AM. Patient states he was in the ER yesterday and was told he had anemia but was sent home. Patient states he continues to vomit all day today and he still does not feel right. Patient states he is get generalized body aches. Patient also has an ostomy which she has had for 26 years. Patient states the output has been normal. Patient denies any abdominal pain. Patient states she is got a little back aches. Patient denies any chest pain difficulty breathing shortness of breath. Patient denies any fever chills patient. - Related Data Home Medications Medication Instructions Recorded Confirmed ALPRAZolam [Xanax] 0.5 mg PO BID PRN 01/04/23 10/27/24 HYDROcodone/APAP 10-325MG [[place] 1 tab PO Q6H PRN 01/04/23 10/27/24 10-325] Zolpidem [Ambien] 10 mg PO HS PRN 01/04/23 10/27/24 Cyanocobalamin [Vitamin B-12 1,000 mcg SQ QMONTHLY 04/02/24 10/27/24 Injection] Previous Rx's Medication Instructions Recorded Ondansetron Odt [Zofran Odt] 4 mg PO Q8HR PRN #15 tab 10/27/24 Allergies Allergy/AdvReac Type Severity Reaction Status Date / Time No Known Allergies Allergy Verified 10/28/24 16:55 Review of Systems ROS Statement: Those systems with pertinent positive or pertinent negative responses have been documented in the HPI. ROS Other: All systems not noted in ROS Statement are negative. Past Medical History Past Medical History: GERD/Reflux, GI Bleed Additional Past Medical History / Comment(s): past hx. peptic ulcer-6 bleeding ulcers per pt., states takes norco for abd. 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, VRE Date of last positivie culture/infection: 10/13/18 MDRO Source:: VRE KNEE Past Surgical History: Bowel Resection, Orthopedic Surgery Additional Past Surgical History / Comment(s): colostomy, arthroscopies gildardo knees, right hand ganglion cyst removed Past Anesthesia/Blood Transfusion Reactions: No Reported Reaction Past Psychological History: Anxiety Smoking Status: Never smoker Past Alcohol Use History: None Reported Past Drug Use History: None Reported - Past Family History Mother Family Medical History: No Reported History General Exam - General Exam Comments Initial Comments: GENERAL: Patient is well-developed and well-nourished. Patient is nontoxic and well- hydrated and is in mild distress. ENT: Neck is soft and supple. No significant lymphadenopathy is noted. Oropharynx is clear. Moist mucous membranes. Neck has full range of motion without eliciting any pain. EYES: The sclera were anicteric and conjunctiva were pink and moist. Extraocular movements were intact and pupils were equal round and reactive to light. Eyel ids were unremarkable. PULMONARY: Unlabored respirations. Good breath sounds bilaterally. No audible rales rhonchi or wheezing was noted. CARDIOVASCULAR: There is a regular rate and rhythm without any murmurs gallops or rubs. ABDOMEN: Soft and nontender with normal bowel sounds. Patient has not ostomy. SKIN: Skin is clear with no lesions or rashes and otherwise unremarkable. NEUROLOGIC: Patient is alert and oriented x3. Cranial nerves II through XII are grossly intact. Motor and sensory are also intact. Normal speech, volume and content. Symmetrical smile. MUSCULOSKELETAL: Normal extremities with adequate strength and full range of motion. No lower extremity swelling or edema. No calf tenderness. LYMPHATICS: No significant lymphadenopathy is noted PSYCHIATRIC: Normal psychiatric evaluation. Limitations: no limitations Course Vital Signs 10/28/24 16:50 Temperature 98.0 F Pulse Rate 70 Respiratory 22 Rate Blood Pressure 156/71 O2 Sat by Pulse 100 Oximetry Medical Decision Making - Medical Decision Making Was pt. sent in by a medical professional or institution (, PA, SHIP CONSTRUCTION TEACHER, urgent care, hospital, or custodial...) When possible be specific @ -No Did you speak to anyone other than the patient for history (EMS, parent, family, police, friend...)? What history was obtained from this source @ -No Did you review nursing and triage notes (agree or disagree)? Why? @ -I reviewed and agree with nursing and triage notes Were old charts reviewed (outside hosp., previous admission, EMS record, old EKG, old radiological studies, urgent care reports/EKG's, custodial records)? Report findings @ -No old charts were reviewed Differential Diagnosis? @ -Gastritis, gastroenteritis, acute vomiting, viral syndrome, cyclic vomiting, this is not all-inclusive list EKG interpreted by me (3pts min.). @ -As above X-rays interpreted by me (1pt min.). @ -None done CT interpreted by me (1pt min.). @ -None done U/S interpreted by me (1pt. min.). @ -None done What testing was considered but not performed or refused? (CT, X-rays, U/S, labs)? Why? @ -None What meds were considered but not given or refused? Why? @ -None Did you discuss the management of the patient with other professionals (professionals i.e. , PA, SHIP CONSTRUCTION TEACHER, lab, RT, psych nurse, social organization professor, copywriting intern, teacher, engineering officer, director of casework services)? Give summary @ -I spoke to Dr. Maldonado he agreed to admit the patient to the patient wrote admitting orders Was smoking cessation discussed for >3mins.? @ -No Was critical care preformed (if so, how long)? @ -No Were there social determinants of health that impacted care today? How? (Homelessness, low income, unemployed, alcoholism, drug addiction, transportation, low edu. Level, literacy, decrease access to med. care, longterm, rehab)? @ -No Was there de-escalation of care discussed even if they declined (Discuss DNR or withdrawal of care, Hospice)? DNR status @ -No What co-morbidities impacted this encounter? (DM, HTN, Smoking, COPD, CAD, Cancer, CVA, ARF, Chemo, Hep., AIDS, mental health diagnosis, sleep apnea, morbid obesity)? @ -None Was patient admitted / discharged? Hospital course, mention meds given and route, prescriptions, significant lab abnormalities, going to OR and other pertinent info. @ -Patient continues to feel nauseous and Dr. Maldonado came into the hospital saw the patient want the patient to be admitted. Patient's hemoglobin went up from 7.4-7.8 today. Patient's potassium was mildly low so I gave the patient 20 mill equivalents of K-Dur. Undiagnosed new problem with uncertain prognosis? @ -No Drug Therapy requiring intensive monitoring for toxicity (Heparin, Nitro, Insulin, Cardizem)? @ -No Were any procedures done? @ -No Diagnosis/symptom? @ -Acute vomiting Acute, or Chronic, or Acute on Chronic? @ -Acute Uncomplicated (without systemic symptoms) or Complicated (systemic symptoms)? @ -Complicated Side effects of treatment? @ -No Exacerbation, Progression, or Severe Exacerbation? @ -No Poses a threat to life or bodily function? How? (Chest pain, USA, CT, pneumonia, PE, COPD, DKA, ARF, appy, cholecystitis, CVA, Diverticulitis, Homicidal, Suicidal, threat to staff... and all critical care pts) @ -No Diagnosis/symptom? @ -Hypokalemia Acute, or Chronic, or Acute on Chronic? @ -Acute Uncomplicated (without systemic symptoms) or Complicated (systemic symptoms)? @ -Uncomplicated Side effects of treatment? @ -None Exacerbation, Progression, or Severe Exacerbation] @ -No Poses a threat to life or bodily function? @ -No Diagnosis/symptom? @ -Anemia Acute, or Chronic, or Acute on Chronic? @ -Acute Uncomplicated (without systemic symptoms) or Complicated (systemic symptoms)? @ -Complicated Side effects of treatment? @ -None Exacerbation, Progression, or Severe Exacerbation] @ -No Poses a threat to life or bodily function? @ -No - Lab Data Result diagrams: 10/28/24 18:54 10/28/24 18:54 Lab Results 10/28/24 10/28/24 10/28/24 Range/Units 18:54 18:54 18:54 WBC 3.16 L (4.50-10.00) 10*3/uL RBC 3.42 L (4.40-5.60) 10*6/uL Hgb 7.8 L (13.0-17.0) g/dL Hct 26.5 L (39.6-50.0) % MCV 77.5 L (80.0-97.0) fL MCH 22.8 L (27.0-32.0) pg MCHC 29.4 L (32.0-37.0) g/dL Plt Count 379 (140-440) 10*3/uL MPV 9.5 (9.5-12.2) fL Immature Gran % (Auto) 0.6 % Neutrophils % 52.6 % Lymphocytes % 21.5 % Monocytes % 24.4 % Eosinophils % 0.3 % Basophils % 0.6 % Immature Gran # 0.02 (0.00-0.04) 10*3/uL Neutrophils # 1.66 L (1.80-7.70) 10*3/uL Lymphocytes # 0.68 L (0.90-5.00) 10*3/uL Monocytes # 0.77 (0.20-1.00) 10*3/uL Eosinophils # 0.01 L (0.04-0.35) 10*3/uL Basophils # 0.02 (0.00-0.10) 10*3/uL Sodium 141 (137-145) mmol/L Potassium 3.3 L (3.5-5.1) mmol/L Chloride 106 (98-107) mmol/L Carbon Dioxide 25 (22-30) mmol/L Anion Gap 10 mmol/L BUN 15 (9-20) mg/dL Creatinine 0.90 (0.66-1.25) mg/dL Est GFR (CKD-EPI)AfAm >90 (>60 ml/min/1.73 sqM) Est GFR (CKD-EPI)NonAf >90 (>60 ml/min/1.73 sqM) Glucose 111 H (74-99) mg/dL Plasma Lactic Acid Mike 1.6 (0.7-2.0) mmol/L Calcium 9.4 (8.4-10.2) mg/dL Magnesium 1.8 (1.6-2.3) mg/dL Total Bilirubin 0.8 (0.2-1.3) mg/dL AST 20 (17-59) U/L ALT 14 (4-49) U/L Alkaline Phosphatase 66 (38-126) U/L Total Protein 7.0 (6.3-8.2) g/dL Albumin 4.2 (3.5-5.0) g/dL Urine Color Urine Appearance (Clear) Urine pH (5.0-8.0) Ur Specific [place] (1.001-1.035) Urine Protein (Negative) Urine Glucose (UA) (Negative) Urine Ketones (Negative) Urine Blood (Negative) Urine Nitrite (Negative) Urine Bilirubin (Negative) Urine Urobilinogen (<2.0) mg/dL Ur Leukocyte Esterase (Negative) Urine RBC (0-5) /hpf Urine WBC (0-5) /hpf Urine Mucus (None) /hpf 10/28/24 Range/Units 18:54 WBC (4.50-10.00) 10*3/uL RBC (4.40-5.60) 10*6/uL Hgb (13.0-17.0) g/dL Hct (39.6-50.0) % MCV (80.0-97.0) fL MCH (27.0-32.0) pg MCHC (32.0-37.0) g/dL Plt Count (140-440) 10*3/uL MPV (9.5-12.2) fL Immature Gran % (Auto) % Neutrophils % % Lymphocytes % % Monocytes % % Eosinophils % % Basophils % % Immature Gran # (0.00-0.04) 10*3/uL Neutrophils # (1.80-7.70) 10*3/uL Lymphocytes # (0.90-5.00) 10*3/uL Monocytes # (0.20-1.00) 10*3/uL Eosinophils # (0.04-0.35) 10*3/uL Basophils # (0.00-0.10) 10*3/uL Sodium (137-145) mmol/L Potassium (3.5-5.1) mmol/L Chloride (98-107) mmol/L Carbon Dioxide (22-30) mmol/L Anion Gap mmol/L BUN (9-20) mg/dL Creatinine (0.66-1.25) mg/dL Est GFR (CKD-EPI)AfAm (>60 ml/min/1.73 sqM) Est GFR (CKD-EPI)NonAf (>60 ml/min/1.73 sqM) Glucose (74-99) mg/dL Plasma Lactic Acid Mike (0.7-2.0) mmol/L Calcium (8.4-10.2) mg/dL Magnesium (1.6-2.3) mg/dL Total Bilirubin (0.2-1.3) mg/dL AST (17-59) U/L ALT (4-49) U/L Alkaline Phosphatase (38-126) U/L Total Protein (6.3-8.2) g/dL Albumin (3.5-5.0) g/dL Urine Color Colorless Urine Appearance Clear (Clear) Urine pH 6.5 (5.0-8.0) Ur Specific [place] 1.023 (1.001-1.035) Urine Protein 2+ H (Negative) Urine Glucose (UA) Negative (Negative) Urine Ketones 1+ H (Negative) Urine Blood Small H (Negative) Urine Nitrite Negative (Negative) Urine Bilirubin Negative (Negative) Urine Urobilinogen <2.0 (<2.0) mg/dL Ur Leukocyte Esterase Negative (Negative) Urine RBC 3 (0-5) /hpf Urine WBC 1 (0-5) /hpf Urine Mucus Occasional H (None) /hpf Disposition Clinical Impression: Anemia, Nausea and vomiting, Hypokalemia Disposition: ADMITTED IP TO THIS HOSP Referrals: Isaiah Maldonado MD [Primary Care Provider] - 1-2 days Time of Disposition: 19:38
[2024-10-28] MEDS: ONDANSETRON 4 MG/2 ML VIAL IVP STA (18:57)
[2024-10-28] MEDS: SODIUM CHLORIDE 0.9% 1,000 ML IV ONE ×2 (18:57→21:41)
[2024-10-28 19:04] LABS: Basophils # (A) 0.02 10*3/uL (0.00-0.10); Basophils % (A) 0.6 %; Eosinophils # (A) 0.01 10*3/uL (0.04-0.35); Eosinophils % (A) 0.3 %; HCT 26.5 % (39.6-50.0); HGB 7.8 g/dL (13.0-17.0); Lymphocytes # (A) 0.68 10*3/uL (0.90-5.00); Lymphocytes % (A) 21.5 %; MCH 22.8 pg (27.0-32.0); MCHC 29.4 g/dL (32.0-37.0); MCV 77.5 fL (80.0-97.0); Mean Platelet Volume 9.5 fL (9.5-12.2); Monocytes # (A) 0.77 10*3/uL (0.20-1.00); Monocytes % (A) 24.4 %; Neutrophils # (A) 1.66 10*3/uL (1.80-7.70); Neutrophils % (A) 52.6 %; Platelet Count 379 10*3/uL (140-440); RBC 3.42 10*6/uL (4.40-5.60); RDW 15.4 % (11.5-14.5); WBC 3.16 10*3/uL (4.50-10.00)
[2024-10-28 19:06] LABS: Appearance,Urine Clear (Clear); Bilirubin,Urine Negative (Negative); Blood,Urine Small (Negative); Color,Urine Colorless; Glucose,Urine (UA) Negative (Negative); Ketones,Urine 1+ (Negative); Leukocyte Esterase,Urine Negative (Negative); Mucus,Urine Occasional /hpf; Nitrite,Urine Negative (Negative); PH, Urine 6.5 (5.0-8.0); Protein,Urine 2+ (Negative); RBC,Urine 3 /hpf (0-5); Specific Gravity,Urine 1.023 (1.001-1.035); Urobilinogen,Urine <2.0 mg/dL (<2.0); WBC,Urine 1 /hpf (0-5)
[2024-10-28 19:22] LABS: ALT 14 U/L (4-49); AST 20 U/L (17-59); African American GFR (CKD) >90 (>60 ml/min/1.73 sqM); Albumin 4.2 g/dL (3.5-5.0); Alkaline Phosphatase 66 U/L (38-126); Anion Gap 10 mmol/L; Blood Urea Nitrogen 15 mg/dL (9-20); Calcium 9.4 mg/dL (8.4-10.2); Carbon Dioxide 25 mmol/L (22-30); Chloride 106 mmol/L (98-107); Glucose 111 mg/dL (74-99); Magnesium 1.8 mg/dL (1.6-2.3); Non-African American GFR(CKD) >90 (>60 ml/min/1.73 sqM); Potassium 3.3 mmol/L (3.5-5.1); Sodium 141 mmol/L (137-145); Total Bilirubin 0.8 mg/dL (0.2-1.3)
[2024-10-28] MEDS: KETOROLAC 15 MG/ML 1 ML VIAL IVP STA (19:45)
[2024-10-28] MEDS: HYDROmorphone 0.5 MG/0.5 ML SYRINGE IVP STA (19:49)
[2024-10-28] MEDS: POTASSIUM CHLORIDE ER 20 MEQ TAB.ER PO STA (19:55)
[2024-10-28] MEDS ORDERED: ZOLPIDEM 5 MG TAB PO PRN (19:55)
[2024-10-28] MEDS ORDERED: ALPRAZolam 0.5 MG TAB PO PRN (19:55)
[2024-10-28] MEDS ORDERED: ONDANSETRON ODT 4 MG TAB PO PRN (19:55)
--- NOTE | 2024-10-28 21:07 | XR ---
EXAMINATION TYPE: XR abdomen 2V DATE OF EXAM: 10/28/2024 COMPARISON: CT abdomen and pelvis 05/13/2022, abdominal radiograph 06/13/2021 HISTORY: Pain TECHNIQUE: Upright and supine views of the abdomen were obtained. FINDINGS: Small bowel demonstrates no evidence for dilatation or air fluid levels. Gas and fecal material is seen in non-distended colon. No convincing evidence for pneumoperitoneum. Postsurgical changes with suture material identified within the left upper quadrant. Multiple calcified granuloma identified within the bilateral lung bases again. Redemonstration of a 3.1 cm ovoid density within the left mid abdomen from prior examination correspo nding to prior ostomy site. The lung bases are clear. The osseous structures are intact. IMPRESSION: Overall nonobstructive bowel gas pattern. [facility], , 10/28/2024 9:04 PM
[2024-10-28 21:26] LABS: LDH 164 U/L (120-246)
[2024-10-28] MEDS: SODIUM CHLORIDE 0.9% 1,000 ML IV SCH (21:53)
[2024-10-28] MEDS: HYDROmorphone 0.5 MG/0.5 ML SYRINGE IVP PRN (21:54)
[2024-10-28 22:17] LABS: HCT 22.1 % (39.6-50.0); MCH 22.5 pg (27.0-32.0); MCV 77.8 fL (80.0-97.0); Platelet Count 374 10*3/uL (140-440); RBC 2.84 10*6/uL (4.40-5.60); RDW 15.2 % (11.5-14.5); WBC 2.32 10*3/uL (4.50-10.00)
[2024-10-28 22:48] LABS: HGB 6.4 g/dL (13.0-17.0)
[2024-10-28 23:11] LABS: Band Neutrophils % 1 %; Monocytes # (M) 0.56 k/uL (0-1.0); Neutrophils # (M) 1.16 k/uL (1.3-7.7); Neutrophils % (M) 49 %; Nucleated Red Blood Cells 0 /100 WBC (0-0); Polychromasia Present; Total Cells Counted 100
[2024-10-29 02:35] LABS: Reticulocyte % 1.88 % (0.10-1.80)
[2024-10-29 04:09] LABS: % Iron Saturation 2.56 (15.00-50.00); Iron 12 UG/DL (65-175); Total Iron Binding Capacity 468 UG/DL (228-460)
[2024-10-29 07:46] VITALS: RESP 18
[2024-10-29] MEDS: PANTOPRAZOLE 40 MG/10 ML VIAL IVP SCH (08:40)
[2024-10-29] MEDS: SODIUM FERRIC GLUCONAT-SUCROSE 125 MG in SODIUM CHLORIDE 0.9% 100 ML IVPB SCH (08:46)
[2024-10-29 10:08] LABS: Basophils # (A) 0.04 10*3/uL (0.00-0.10); Basophils % (A) 1.4 %; Eosinophils # (A) 0.09 10*3/uL (0.04-0.35); Eosinophils % (A) 3.1 %; HCT 27.6 % (39.6-50.0); Lymphocytes # (A) 0.68 10*3/uL (0.90-5.00); Lymphocytes % (A) 23.4 %; MCH 22.9 pg (27.0-32.0); MCHC 30.1 g/dL (32.0-37.0); Mean Platelet Volume 8.9 fL (9.5-12.2); Monocytes # (A) 0.79 10*3/uL (0.20-1.00); Monocytes % (A) 27.2 %; Neutrophils # (A) 1.27 10*3/uL (1.80-7.70); Neutrophils % (A) 43.9 %; Platelet Count 334 10*3/uL (140-440); RBC 3.63 10*6/uL (4.40-5.60); RDW 16.5 % (11.5-14.5)
[2024-10-29 10:21] LABS: ALT 12 U/L (4-49); AST 16 U/L (17-59); African American GFR (CKD) >90 (>60 ml/min/1.73 sqM); Albumin 3.3 g/dL (3.5-5.0); Albumin/Globulin Ratio 1.4; Alkaline Phosphatase 53 U/L (38-126); Anion Gap 8 mmol/L; Blood Urea Nitrogen 14 mg/dL (9-20); Carbon Dioxide 24 mmol/L (22-30); Chloride 107 mmol/L (98-107); Globulin 2.4 g/dL; Glucose 95 mg/dL (74-99); Non-African American GFR(CKD) >90 (>60 ml/min/1.73 sqM); Potassium 3.3 mmol/L (3.5-5.1); Sodium 139 mmol/L (137-145); Total Bilirubin 2.2 mg/dL (0.2-1.3); Total Protein 5.7 g/dL (6.3-8.2)
--- NOTE | 2024-10-29 10:34 | P.GSCN ---
History of Present Illness Consult date: 10/29/24 History of present illness: CHIEF COMPLAINT: vomiting and dehydration HISTORY OF PRESENT ILLNESS: This is a 54-year-old male who presented the hospital with complaints of vomiting that started 2 days ago. Patient was seen in the ER on October 27 and came back on the due to being dehydrated and vomiting. Patient has a known history of perforated peptic ulcer disease with bowel resection, colostomy and mucous fistula about 26 years ago. Patient reports that he gets sick like this if he does not eat the right things and drink his Pedialyte. He becomes dehydrated and then the nausea and vomiting start. Patient reports the vomiting has resolved. He denies any blood in the emesis. He denies any new abdominal pain. He reports the pain he has is chronic. His ostomy has been functioning. He does report small amount of bleeding from the skin around the stoma. He reports the skin gets irritated. He does try different powders which to help for the most part. He is anemic. He had a hemoglobin of 7.8 on admission down to 6.4. He is receiving 1 unit of blood. He is iron deficient. His last colonoscopy was in December 2022. Cannot colonoscopy was completed through the anus and mucous fistula and ileoscopy with gastroscope. 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 Patient reports believes that his anemia is due to the continuous bleeding from the skin irritation around the stoma. He is not interested in EGD or colonoscopy at this time. PAST MEDICAL HISTORY: See below PAST SURGICAL HISTORY: See below MEDICATIONS: See below ALLERGIES: See below SOCIAL HISTORY: No illicit drug use. REVIEW OF SYSTEMS: CONSTITUTIONAL: Denies fever or chills. HEENT: Denies blurred vision, vision changes, or eye pain. Denies hemoptysis CARDIOVASCULAR: Denies chest pain or pressure. RESPIRATORY: No shortness of breath. GASTROINTESTINAL: See HPI for pertinent findings HEMATOLOGIC: Denies bleeding disorders. GENITOURINARY: Denies any blood in urine or increased urinary frequency. SKIN: Denies pruitis. Denies rash. PHYSICAL EXAM: VITAL SIGNS: Reviewed GENERAL: Well-developed in no acute distress. HEENT: No sclera icterus. Extraocular movements grossly intact. Moist buccal mucosa. Head is atraumatic, normocephalic. No nasal drainage. ABDOMEN: Soft. Nondistended. Old, healed midline scar. Colostomy on the right side of the abdomen. Stool present in the bag. Mucous fistula on the left pink and healthy. NEUROLOGIC: Alert and oriented. Cranial nerves II through XII grossly intact. LABORATORY DATA: WBC 2.32 Hgb 7.8 down to 6.4 platelets 374 Sodium is 139 potassium 3.3 creatinine 0.82 Magnesium 1.8 Iron 12 IMAGING: Abdominal x-ray overall nonobstructive bowel gas pattern ASSESSMENT: 1. Anemia with iron deficiency anemia and chronic active bleeding from skin irritation around the stoma 2. History of perforated peptic ulcer disease with complications and requiring bowel resection, colostomy and mucous fistula 3. Vomiting and dehydration present on admission now improved PLAN: - Agree with blood transfusion for hemoglobin of 6.4 - EGD and colonoscopy offered for further evaluation of anemia. Patient de clined EGD and colonoscopy. - Continue iron supplements - Continue care to skin around the stoma - Advance diet to regular Physician Recessing Machine Operator note has been reviewed by physician. Signing provider agrees with the documented findings, assessment, and plan of care. I have personally seen and examined the patient, reviewed the SENIOR TELECOMMUNICATIONS TECHNICIAN /PAs history, exam and MDM and agree with the assessment and plan as written. Based on total visit time, I have performed more than 50% of the visit. As above: Patient hospitalized with nausea vomiting that has resolved. Patient quite anxious to go home he says. He did receive blood today and we are waiting for repeat hemoglobin. Denies hematemesis or melanotic stools. Has had some bleeding around his ileostomy site. Says this is chronic. Patient's last colo noscopy 2 to 3 years ago revealed disuse colitis and luminal narrowing. We were unable to navigate the entirety of the left colon. Difficult to completely exclude source of bleeding there. This was discussed with the patient. Patient would like to hold off on any endoscopy currently. He does have a history of previous ulcer disease. Is willing to consider upper endoscopy and repeat colonoscopy as outpatient. He would like to see me in the office to further discuss. Previously he had been suggested to see colorectal surgery to discuss ostomy reversal. Patient says he has decided against doing so. Past Medical History Past Medical History: GERD/Reflux, GI Bleed Additional Past Medical History / Comment(s): past hx. peptic ulcer-6 bleeding ulcers per pt., states takes norco for abd. 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 Past Surgical History: Bowel Resection, Orthopedic Surgery Additional Past Surgical History / Comment(s): colostomy, arthroscopies gildardo knees, right hand ganglion cyst removed Past Anesthesia/Blood Transfusion Reactions: No Reported Reaction Past Psychological History: Anxiety Smoking Status: Never smoker Past Alcohol Use History: None Reported Past Drug Use History: None Reported - Past Family History Mother Family Medical History: No Reported History Medications and Allergies Home Medications Medication Instructions Recorded Confirmed Type ALPRAZolam [Xanax] 0.5 mg PO BID PRN 01/04/23 10/28/24 History HYDROcodone/APAP 10-325MG [[place] 1 tab PO Q6H PRN 01/04/23 10/28/24 History 10-325] Zolpidem [Ambien] 10 mg PO HS PRN 01/04/23 10/28/24 History Cyanocobalamin [Vitamin B-12 1,000 mcg SQ QMONTHLY 04/02/24 10/28/24 History Injection] Ondansetron Odt [Zofran Odt] 4 mg PO Q8HR PRN #15 tab 10/27/24 10/28/24 Rx Fluticasone Nasal [place] [Flonase 1 spr EA NOSTRIL BID PRN 10/28/24 10/28/24 History Nasal [place]] Allergies Allergy/AdvReac Type Severity Reaction Status Date / Time No Known Allergies Allergy Verified 10/28/24 20:53 Surgical - Exam Vital Signs Temp Pulse Resp BP Pulse Ox 98.0 F 70 22 156/71 100 10/28/24 16:50 10/28/24 16:50 10/28/24 16:50 10/28/24 16:50 10/28/24 16:50 Results - Labs 10/28/24 21:55 10/29/24 09:57 Abnormal Lab Results - Last 24 Hours (Table) 10/28/24 10/28/24 10/28/24 Range/Units 18:54 18:54 18:54 WBC 3.16 L (4.50-10.00) 10*3/uL RBC 3.42 L (4.40-5.60) 10*6/uL Hgb 7.8 L (13.0-17.0) g/dL Hct 26.5 L (39.6-50.0) % MCV 77.5 L (80.0-97.0) fL MCH 22.8 L (27.0-32.0) pg MCHC 29.4 L (32.0-37.0) g/dL Neutrophils # 1.66 L (1.80-7.70) 10*3/uL Neutrophils # (Manual) (1.3-7.7) k/uL Lymphocytes # 0.68 L (0.90-5.00) 10*3/uL Lymphocytes # (Manual) (1.0-4.8) k/uL Eosinophils # 0.01 L (0.04-0.35) 10*3/uL Retic Count (0.10-1.80) % Haptoglobin (31.2-198.0) mg/dL Potassium 3.3 L (3.5-5.1) mmol/L Glucose 111 H (74-99) mg/dL Iron 12 L (65-175) UG/DL TIBC 468 H (228-460) UG/DL % Saturation 2.56 L (15.00-50.00) Total Bilirubin (0.2-1.3) mg/dL AST (17-59) U/L Total Protein (6.3-8.2) g/dL Albumin (3.5-5.0) g/dL Urine Protein 2+ H (Negative) Urine Ketones 1+ H (Negative) Urine Blood Small H (Negative) Urine Mucus Occasional H (None) /hpf Crossmatch 10/28/24 10/28/24 10/28/24 Range/Units 21:55 21:55 21:55 WBC 2.32 L (4.50-10.00) 10*3/uL RBC 2.84 L (4.40-5.60) 10*6/uL Hgb 6.4 L* (13.0-17.0) g/dL Hct 22.1 L (39.6-50.0) % MCV 77.8 L (80.0-97.0) fL MCH 22.5 L (27.0-32.0) pg MCHC 29.0 L (32.0-37.0) g/dL Neutrophils # (1.80-7.70) 10*3/uL Neutrophils # (Manual) 1.16 L (1.3-7.7) k/uL Lymphocytes # (0.90-5.00) 10*3/uL Lymphocytes # (Manual) 0.60 L (1.0-4.8) k/uL Eosinophils # (0.04-0.35) 10*3/uL Retic Count 1.88 H (0.10-1.80) % Haptoglobin 319.0 H (31.2-198.0) mg/dL Potassium (3.5-5.1) mmol/L Glucose (74-99) mg/dL Iron (65-175) UG/DL TIBC (228-460) UG/DL % Saturation (15.00-50.00) Total Bilirubin (0.2-1.3) mg/dL AST (17-59) U/L Total Protein (6.3-8.2) g/dL Albumin (3.5-5.0) g/dL Urine Protein (Negative) Urine Ketones (Negative) Urine Blood (Negative) Urine Mucus (None) /hpf Crossmatch 10/28/24 10/29/24 Range/Units 23:15 09:57 WBC (4.50-10.00) 10*3/uL RBC (4.40-5.60) 10*6/uL Hgb (13.0-17.0) g/dL Hct (39.6-50.0) % MCV (80.0-97.0) fL MCH (27.0-32.0) pg MCHC (32.0-37.0) g/dL Neutrophils # (1.80-7.70) 10*3/uL Neutrophils # (Manual) (1.3-7.7) k/uL Lymphocytes # (0.90-5.00) 10*3/uL Lymphocytes # (Manual) (1.0-4.8) k/uL Eosinophils # (0.04-0.35) 10*3/uL Retic Count (0.10-1.80) % Haptoglobin (31.2-198.0) mg/dL Potassium 3.3 L (3.5-5.1) mmol/L Glucose (74-99) mg/dL Iron (65-175) UG/DL TIBC (228-460) UG/DL % Saturation (15.00-50.00) Total Bilirubin 2.2 H (0.2-1.3) mg/dL AST 16 L (17-59) U/L Total Protein 5.7 L (6.3-8.2) g/dL Albumin 3.3 L (3.5-5.0) g/dL Urine Protein (Negative) Urine Ketones (Negative) Urine Blood (Negative) Urine Mucus (None) /hpf Crossmatch See Detail Diabetes panel 10/28/24 10/29/24 Range/Units 18:54 09:57 Sodium 141 139 (137-145) mmol/L Potassium 3.3 L 3.3 L (3.5-5.1) mmol/L Chloride 106 107 (98-107) mmol/L Carbon Dioxide 25 24 (22-30) mmol/L BUN 15 14 (9-20) mg/dL Creatinine 0.90 0.82 (0.66-1.25) mg/dL Glucose 111 H 95 (74-99) mg/dL Calcium 9.4 9.0 (8.4-10.2) mg/dL AST 20 16 L (17-59) U/L ALT 14 12 (4-49) U/L Alkaline Phosphatase 66 53 (38-126) U/L Total Protein 7.0 5.7 L (6.3-8.2) g/dL Albumin 4.2 3.3 L (3.5-5.0) g/dL Calcium panel 10/28/24 10/29/24 Range/Units 18:54 09:57 Calcium 9.4 9.0 (8.4-10.2) mg/dL Albumin 4.2 3.3 L (3.5-5.0) g/dL Pituitary panel 10/28/24 10/29/24 Range/Units 18:54 09:57 Sodium 141 139 (137-145) mmol/L Potassium 3.3 L 3.3 L (3.5-5.1) mmol/L Chloride 106 107 (98-107) mmol/L Carbon Dioxide 25 24 (22-30) mmol/L BUN 15 14 (9-20) mg/dL Creatinine 0.90 0.82 (0.66-1.25) mg/dL Glucose 111 H 95 (74-99) mg/dL Calcium 9.4 9.0 (8.4-10.2) mg/dL Adrenal panel 10/28/24 10/29/24 Range/Units 18:54 09:57 Sodium 141 139 (137-145) mmol/L Potassium 3.3 L 3.3 L (3.5-5.1) mmol/L Chloride 106 107 (98-107) mmol/L Carbon Dioxide 25 24 (22-30) mmol/L BUN 15 14 (9-20) mg/dL Creatinine 0.90 0.82 (0.66-1.25) mg/dL Glucose 111 H 95 (74-99) mg/dL Calcium 9.4 9.0 (8.4-10.2) mg/dL Total Bilirubin 0.8 2.2 H (0.2-1.3) mg/dL AST 20 16 L (17-59) U/L ALT 14 12 (4-49) U/L Alkaline Phosphatase 66 53 (38-126) U/L Total Protein 7.0 5.7 L (6.3-8.2) g/dL Albumin 4.2 3.3 L (3.5-5.0) g/dL
[2024-10-29] MEDS ORDERED: POTASSIUM CHLORIDE ER 20 MEQ TAB.ER PO STA (10:45)
[2024-10-29] MEDS: POTASSIUM CHLORIDE ER 20 MEQ TAB.ER PO STA (10:57)
[2024-10-29 13:11] VITALS: BP 119/73; PULSE 69; TEMP 98
[2024-10-29 13:16] LABS: HGB 8.3 g/dL (13.0-17.0)
[2024-10-29] MEDS: HYDROcodone/APAP 10-325MG 1 EACH TAB PO PRN (14:03)
--- NOTE | 2024-10-29 15:05 | P.HPIM ---
History of Present Illness H&P Date: 10/28/24 Chief Complaint: abdomnial pain/ Iron deficiency anemia HISTORY OF PRESENT ILLNESS: This is a 54-year-old -[place] gentleman with a previous medical history significant for peptic ulcer disease with ulcer perforation and surgical intervention with a bowel resection more than 26 years ago at the [facility] ended up with colostomy as well as mucous fistula more than 26 years ago, history of allergic rhinitis, history of chronic pain syndrome, history of anxiety as well as gastroesophageal flux disease, patient presented to the emergency department at [facility] about a day before yesterday with increased abdominal pain associated with intractable nausea and vomiting not able to keep food down, he was treated with IV fluid resuscitation as well as antiemetics, he was sent home was supposed to follow-up with me in the office on October 30, 2024 however the patient ended up coming back to the ER yesterday with intractable nausea and vomiting with acute abdominal pain, he was given Dilaudid, his hemoglobin went up from 7.4-7.8, and repeated blood count later on showed the drop of hemoglobin to 6.4, apparently the patient was given 1 unit of packed red blood cells, he was started on IV Protonix 40 mg a push every 24 hours, he was placed on clear liquid diet, he was placed on IV fluid resuscitation, he was admitted to the hospital for evaluation by general surgery for possible EGD as well as colonoscopy through the stoma, patient did have an abdominal x-ray in the ER did not show any evidence of acute abnormalities, patient was admitted to the hospital for further evaluation and treatment. REVIEW OF SYSTEMS: Constitutional: No documented fever, no chills, no night sweats. No weight change. No weakness, fatigue or lethargy. No daytime sleepiness. EENT: No headache. No blurred vision or double vision, no loss of vision. No loss of Hearing, no ringing in the ears, no dizziness. No nasal drainage or congestion. No epistaxis. No sore throat. Lungs: No shortness of breath, no cough, no sputum production. No wheezing. Reports dyspnea with activity. Cardiovascular: No chest pain, no lower extremity edema. No palpitations. No paroxysmal nocturnal dyspnea. No orthopnea. No lightheadedness or dizziness. No syncopal episodes. Abdominal: Reports abdominal pain. positive for nausea, vomiting. No diarrhea. No constipation. No bloody or tarry stools reports loss of appetite. Genitourinary: No dysuria, increased frequency, urgency. No urinary retention. Musculoskeletal: No myalgias. No muscle weakness, no gait dysfunction, no frequent falls. No back pain. No neck pain. Integumentary: No wounds, no lesions. No rash or pruritus. No unusual bruising. No change in hair or nails. Neurologic: No aphasia. No facial droop. No change in mentation. No head injury. No headache. No paralysis. No paresthesia. Psychiatric: No depression. positive for anxiety. No mood swings. Endocrine: No abnormal blood sugars. No weight change. PAST MEDICAL HISTORY: Allergic rhinitis. Gastroesophageal flux disease. Chronic pain syndrome. History of perforated peptic ulcer disease with colon resection status post colostomy and mucous fistula. Anxiety. Iron deficiency anemia. B12 deficiency. Short gut syndrome. Mixed hyperlipidemia. PAST SURGICAL HISTORY: Bilateral knee surgery 1988 2016. Right hand surgery 1985. Perforated peptic ulcer disease with colon resection many years ago at the [facility] about 26 years ago with colostomy with ileostomy as well as mucous fistula. Colonoscopy 01/09/2023. SOCIAL HISTORY: Patient denies any history of smoking, he denies any history of drinking, no d rug use or abuse, he lives with his . FAMILY HISTORY: Patient does not know much about his father, his mother is alive she is 72-year-old with history of CAD, diabetes mellitus type 2, and hypertension, patient has 1 son alive and well, and 2 daughter, PHYSICAL EXAMINATION: General: HEENT: Head is atraumatic, normocephalic, pupils were equal round reactive to light and recommendation, extraocular muscle movement were intact, sclera nonicteric, conjunctivae were pale, mucous membranes of the mouth are somewhat dry. Neck: Supple, no JVP, normal carotid upstroke bilaterally, no lymphadenopathy. Chest: Decreased breath sounds at the bases, few rhonchi, no expiratory wheezes, no chest wall tenderness, no intercostal retractions. Heart: First heart sound is normal, second heart sounds normal Abdomen: Soft, nontender, nondistended, positive bowel sounds, there is ileostomy in place as well as mucous fistula. Extremities: There is no edema no calf tenderness DP +2 bilaterally. Neurologic examination: Patient is awake alert and oriented x3, cranial nerves II-12 appear grossly intact, muscle power were 5 out of 5 in upper extremities and 5 out of 5 in bilateral lower extremities, deep tendon reflexes normal bilaterally. ASSESSMENT AND PLAN: 1. Acute on chronic iron deficiency anemia with drop of hemoglobin to 6.4. Type and cross and transfuse 1 unit of packed red blood cells, patient was given 1 iron infusion 125-minute milligram IV piggyback x 1, continue IV fluid resusc itation, continue patient on nothing per mouth overnight, general surgery consultation for EGD and colonoscopy, iron studies will be done, reticulocyte count will be done, hemoglobin electrophoresis will be done, follow-up with the patient very closely, continue patient on Protonix 40 mg IV push every 24 hours, start the patient on Zofran 4 mg IV push every 6 hours, continue IV fluid resuscitation, repeat CBC every 6 hours. 2. Intractable nausea and vomiting likely due short gut syndrome as well as GERD, continue patient on Zofran 4 mg IV push every 6 hours, continue Protonix 40 mg IV push every 24 hours, continue IV fluid resuscitation, monitor the patient symptoms very closely. 3. Hypokalemia status post replacement. 4. GERD with esophagitis. Continue Protonix 40 mg IV push every 24 hours. 5. Allergic rhinitis. Appears to be stable at this time. Continue patient on Flonase nasal spray 1 puff in each nostril twice every day. 6. Mixed hyperlipidemia. Patient is not taking any medication at this point in time. Monitor the patient lipid panel as an outpatient. 7. Chronic pain syndrome. Continue patient on hydrocodone every 6 hours as needed, patient will be given Dilaudid 0.5 mg IV push every 6 hours as needed for breakthrough pain. 8. Anxiety disorder. Continue Xanax as needed. 9. Chronic iron deficiency anemia due to chronic blood loss. Continue treatmen t as in Paragraph#1 10. Vitamin B12 deficiency. Patient has been getting B12 1000 mcg IM monthly. 11. DVT prophylaxis. Bilateral knee-high BIANCA hose and early ambulation. 12. GI prophylaxis. Continue patient on Protonix 40 mg IV push every 24 hours. 13. Admit to inpatient. Estimated length of stay 2 midnights. 14. Full code. Past Medical History Past Medical History: GERD/Reflux, GI Bleed Additional Past Medical History / Comment(s): past hx. peptic ulcer-6 bleeding ulcers per pt., states takes norco for abd. 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, VRE Date of last positivie culture/infection: 10/13/18 MDRO Source:: VRE KNEE Past Surgical History: Bowel Resection, Orthopedic Surgery Additional Past Surgical History / Comment(s): colostomy, arthroscopies gildardo kne es, right hand ganglion cyst removed Past Anesthesia/Blood Transfusion Reactions: No Reported Reaction Past Psychological History: Anxiety Smoking Status: Never smoker Past Alcohol Use History: None Reported Past Drug Use History: None Reported - Past Family History Mother Family Medical History: No Reported History Medications and Allergies Home Medications Medication Instructions Recorded Confirmed Type ALPRAZolam [Xanax] 0.5 mg PO BID PRN 01/04/23 10/28/24 History HYDROcodone/APAP 10-325MG [[place] 1 tab PO Q6H PRN 01/04/23 10/28/24 History 10-325] Zolpidem [Ambien] 10 mg PO HS PRN 01/04/23 10/28/24 History Cyanocobalamin [Vitamin B-12 1,000 mcg SQ QMONTHLY 04/02/24 10/28/24 History Injection] Ondansetron Odt [Zofran Odt] 4 mg PO Q8HR PRN #15 tab 10/27/24 10/28/24 Rx Fluticasone Nasal [place] [Flonase 1 spr EA NOSTRIL BID PRN 10/28/24 10/28/24 History Nasal [place]] Allergies Allergy/AdvReac Type Severity Reaction Status Date / Time No Known Allergies Allergy Verified 10/28/24 20:53 Physical Exam Vitals: Vital Signs Temp Pulse Resp BP Pulse Ox 10/28/24 19:41 97.7 F 74 18 144/83 100 10/28/24 16:50 98.0 F 70 22 156/71 100 Intake and Output 10/28/24 10/28/24 10/28/24 06:59 14:59 22:59 Other: Weight 74.843 kg Results CBC & Chem 7: 10/29/24 09:57 10/29/24 09:57 Labs: Abnormal Lab Results - Last 24 Hours (Table) 10/28/24 10/28/24 10/28/24 Range/Units 18:54 18:54 18:54 WBC 3.16 L (4.50-10.00) 10*3/uL RBC 3.42 L (4.40-5.60) 10*6/uL Hgb 7.8 L (13.0-17.0) g/dL Hct 26.5 L (39.6-50.0) % MCV 77.5 L (80.0-97.0) fL MCH 22.8 L (27.0-32.0) pg MCHC 29.4 L (32.0-37.0) g/dL Neutrophils # 1.66 L (1.80-7.70) 10*3/uL Lymphocytes # 0.68 L (0.90-5.00) 10*3/uL Eosinophils # 0.01 L (0.04-0.35) 10*3/uL Potassium 3.3 L (3.5-5.1) mmol/L Glucose 111 H (74-99) mg/dL Urine Protein 2+ H (Negative) Urine Ketones 1+ H (Negative) Urine Blood Small H (Negative) Urine Mucus Occasional H (None) /hpf
--- NOTE | 2024-10-29 15:07 | P.DS ---
Providers Date of admission: 10/28/24 20:03 Expected date of discharge: 10/29/24 Attending physician: Isaiah Maldonado Consults: 10/28/24 19:56 Consult Physician Routine Consulting Provider: Nitish Conteh Consult Reason/Comments: iron deficiency anemia/ for EGD/Colonoscopy Do you want consulting provider notified?: Yes Primary care physician: Isaiah Maldonado Hospital Course: HISTORY OF PRESENT ILLNESS: This is a 54-year-old -[place] gentleman with a previous medical history significant for peptic ulcer disease with ulcer perforation and surgical intervention with a bowel resection more than 26 years ago at the [facility] ended up with colostomy as well as mucous fistula more than 26 years ago, history of allergic rhinitis, history of chronic pain syndrome, history of anxiety as well as gastroesophageal flux disease, patient presented to the emergency department at [facility] about a day before yesterday with increased abdominal pain associated with intractable nausea and vomiting not able to keep food down, he was treated with IV fluid resuscitation as well as antiemetics, he was sent home was supposed to follow-up with me in the office on October 30, 2024 however the patient ended up coming back to the ER yesterday with intractable nausea and vomiting with acute abdominal pain, he was given Dilaudid, his hemoglobin went up from 7.4-7.8, and repeated blood count later on showed the drop of hemoglobin to 6.4, apparently the patient was given 1 unit of packed red blood cells, he was started on IV Protonix 40 mg a push every 24 hours, he was placed on clear liquid diet, he was placed on IV fluid resuscitation, he was admitted to the hospital for evaluation by general surgery for possible EGD as well as colonoscopy through the stoma, patient did have an abdominal x-ray in the ER did not show any evidence of acute abnormalities, patient was admitted to the hospital for further evaluation and treatment. 10/29: Patient was seen in consultation by general surgery, patient did not want to go for an EGD or colonoscopy as an inpatient, he was feeling better, after he was given 1 unit of packed red blood cells, his hemoglobin is up to 8.4, he is tolerating his diet very well, at this point in time he wants to be discharged home to follow-up with me as an outpatient in the next 24 hours, he will follow- up with Dr. Carter as an outpatient for EGD and colonoscopy I still think he needs to go for this, and may be CT scan of the chest abdomen pelvis to rule out any acute abnormalities, laboratory evaluation were done, some of the labs still pending at the time of dictation, patient will be discharged in stable condition, his potassium continues to be low, discontinue IV fluid, patient will be given another 40 mill equivalent of potassium prior to discharge, I will follow-up with the patient in the office tomorrow morning on 10/30/2024. Discharge diagnoses: 1. Acute on chronic iron deficiency anemia with drop of hemoglobin to 6.4. Post 1 unit of packed red blood cell transfusion. 2. Intractable nausea and vomiting likely due short gut syndrome as well as GERD, 3. Hypokalemia status post replacement. 4. GERD with esophagitis. 5. Allergic rhinitis. 6. Mixed hyperlipidemia. 7. Chronic pain syndrome. 8. Anxiety disorder. 9. Chronic iron deficiency anemia due to chronic blood loss. 10. Vitamin B12 deficiency. Patient Condition at Discharge: Stable Plan - Discharge Summary Discharge Rx Participant: Yes New Discharge Prescriptions: No Action HYDROcodone/APAP 10-325MG [[place] 10-325] 1 tab PO Q6H PRN PRN Reason: Pain ALPRAZolam [Xanax] 0.5 mg PO BID PRN PRN Reason: Anxiety Ondansetron Odt [Zofran Odt] 4 mg PO Q8HR PRN #15 tab PRN Reason: Nausea And Vomiting Fluticasone Nasal [place] [Flonase Nasal [place]] 1 spr EA NOSTRIL BID PRN PRN Reason: Allergy Symptoms Zolpidem [Ambien] 10 mg PO HS PRN PRN Reason: Insomnia Cyanocobalamin [Vitamin B-12 Injection] 1,000 mcg SQ QMONTHLY Discharge Medication List ALPRAZolam [Xanax] 0.5 mg PO BID PRN 01/04/23 [History] HYDROcodone/APAP 10-325MG [[place] 10-325] 1 tab PO Q6H PRN 01/04/23 [History] Zolpidem [Ambien] 10 mg PO HS PRN 01/04/23 [History] Cyanocobalamin [Vitamin B-12 Injection] 1,000 mcg SQ QMONTHLY 04/02/24 [History] Ondansetron Odt [Zofran Odt] 4 mg PO Q8HR PRN #15 tab 10/27/24 [Rx] Fluticasone Nasal [place] [Flonase Nasal [place]] 1 spr EA NOSTRIL BID PRN 10/28/24 [History] Follow up Appointment(s)/Referral(s): Nitish Conteh MD [Medical Doctor] - 2 Weeks (Patient states that he will make his own appointment with Dr. Conteh ) Isaiah Maldonado MD [Primary Care Provider] - 1-2 days Patient Instructions/Handouts: Hypokalemia (DC), Acute Nausea and Vomiting (DC), Anemia (DC)
== END 2024-10-29 15:43 | disposition home or self-care (01) ==
LOC: EC 16:42 → 6NMEDSUR 20:03 → 5NMEDONC 22:44
PROVIDERS: ADMIT Internal Medicine; ATTEND Internal Medicine
DX: D50.0 Iron deficiency anemia secondary to blood loss (chronic) (principal); E87.6 Hypokalemia; R11.2 Nausea with vomiting, unspecified; E86.0 Dehydration; K21.00 Gastro-esophageal reflux disease with esophagitis, without bleeding; J30.9 Allergic rhinitis, unspecified; F41.9 Anxiety disorder, unspecified; G89.4 Chronic pain syndrome; E78.2 Mixed hyperlipidemia; E53.8 Deficiency of other specified B group vitamins; Z87.11 Personal history of peptic ulcer disease; Z90.49 Acquired absence of other specified parts of digestive tract; Z93.3 Colostomy status
CPT/HCPCS: 96376 ×3; 96361 ×3; 96365; 96375 ×2; 36430; 99285; 36415; 86900; 86901; 80053 ×2; 82607; 82728; 82746; 83021; 83540; 83550; 83605; 83615; 83735; 85025 ×2; 85045; 86850; 86920; 81001; 83010; 74019; G0378 ×3; P9016; J2405; J2916; J1885; J1171 ×2; J2470

== ENCOUNTER → 2024-10-31 | Outpatient (CLI) | payer BC ==
--- NOTE | 2024-11-02 21:18 | CT ---
EXAMINATION TYPE: CT ChestAbdPelvis w con DATE OF EXAM: 10/31/2024 4:35 PM COMPARISON: CT abdomen/pelvis study dated 05/13/2022. CLINICAL INDICATION: Male, 54 years old with history of D50.0 IRON DEFICIENCY ANEMIA SECONDARY TO BLO OD LO; [facility], IRON DEFICIENCY ANEMIA Technique: CT ChestAbdPelvis w con; Multiple axial images were obtained. Two-dimensional coronal and sagittal reconstructions were obtained. Contrast used:100 ml mL of Isovue 300 with IV Contrast, (None if empty) Oral contrast used: with Oral Contrast CT DLP: 528.6 mGycm, Automated exposure control for dose reduction was used. Findings: CHEST: LUNGS/ PLEURA: No focal consolidation, pneumothorax or pleural effusion. 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 N umerous costophrenic granulomas in the lower lungs. AIRWAY: Patent and unremarkable. HEART: Size within normal limits. MEDIASTINUM: No gross evidence of adenopathy. VASCULATURE: No aortic aneurysm. MUSCULOSKELETAL: No acute osseous abnormalities. SOFT TISSUES/LYMPH NODES: Unremarkable. LOWER NECK: No significant findings. ABDOMEN: ABDOMEN LIVER: Unremarkable GALLBLADDER AND BILE DUCTS: Gallbladder unremarkable. CBD is dilated measuring up to 11 mm in diamete r without discrete CT evidence of an obstructing stone or other lesion. Trace intrahepatic bile duct dilatation. PANCREAS: Unremarkable. SPLEEN: Unremarkable. ADRENAL GLANDS: Unremarkable. KIDNEYS AND URETERS: No evidence of hydronephrosis or renal calculus. The ureters are unremarkable. PELVIS BLADDER: Unremarkable REPRODUCTIVE: Unremarkable. ABDOMEN & PELVIS STOMACH AND BOWEL: Stomach and duodenum are unremarkable. No evidence of bowel obstruction. PERITONEUM/RETROPERITONEUM: No evidence of pneumoperitoneum or free fluid. VASCULATURE: No evidence of aortic aneurysm. MUSCULOSKELETAL: No acute osseous abnormalities LYMPH NODES: No gross evidence for lymphadenopathy. SOFT TISSUE/ABDOMINAL WALL: Unremarkable IMPRESSION: 1. Dilated CBD measuring up to 11 mm in diameter without discrete CT evidence of an obstructing ston e or other lesion. Recommend MRCP or ERCP for further evaluation as can be warranted. 2. Tree in bud nodularity and atelectasis in the right middle lobe likely reflecting sequela chronic bronchiolitis. 3. Numerous enlarged calcified pulmonary nodule in the lower lungs likely reflect sequelae of previo us granulomatous disease. [facility], , 11/02/2024 9:16 PM
== END | disposition home or self-care (01) ==
LOC: RADCTMAIN 14:28
PROVIDERS: ATTEND Internal Medicine
DX: D50.0 Iron deficiency anemia secondary to blood loss (chronic) (principal); K83.8 Other specified diseases of biliary tract; J98.11 Atelectasis; R91.1 Solitary pulmonary nodule
CPT/HCPCS: 71260; 74177; Q9967

== ENCOUNTER → 2024-12-08 | Outpatient (CLI) | payer BC ==
[2024-12-08 19:59] LABS: HCT 26.5 % (39.6-50.0); HGB 7.3 g/dL (13.0-17.0); MCH 23.2 pg (27.0-32.0); MCHC 27.5 g/dL (32.0-37.0); MCV 84.1 FL (80.0-97.0); Mean Platelet Volume 9.9 FL (9.5-12.2); Monocytes # (M) 0.24 X 10*3/uL (0.20-1.00); NRBC Per 100 WBC 0.03 X 10*3/uL (0.00-0.01); Neutrophils % (M) 24 %; Platelet Count 328 X 10*3/uL (140-440); RBC 3.15 X 10*6/uL (4.40-5.60); RDW 21.9 % (11.5-14.5); WBC 2.44 X 10*3/uL (4.50-10.00)
[2024-12-08 20:00] LABS: Acanthocytes 2+ (None Seen); Anisocytosis (M) 2+ (None Seen); Basophils # (M) 0.02 X 10*3/uL (0.00-0.10); Elliptocytes 2+ (None Seen); Eosinophils # (M) 0.59 X 10*3/uL (0.04-0.35); Hypochromasia (M) 2+ (None Seen); Macrocytosis (M) 2+ (None Seen); Microcytosis (M) 2+ (None Seen); Neutrophils # (M) 0.59 X 10*3/uL (1.80-7.70); Schistocytes 2+ (None Seen)
[2024-12-08 20:53] LABS: % Iron Saturation 4.71 (15.00-50.00); Amylase 99 U/L (23-121); Blood Urea Nitrogen 13.3 mg/dL (9.0-27.0); Chloride 109 mmol/L (96-109); Glucose 90 mg/dL (70-110); Iron 17 UG/DL (65-175); LDH 197 U/L (120-246); Lipase 36 U/L (14-60); Potassium 4.5 mmol/L (3.5-5.5); Sodium 140 mmol/L (135-145); Total Iron Binding Capacity 361 UG/DL (228-460)
[2024-12-08 20:54] LABS: ALT 16 U/L (10-49); AST 25 U/L (14-35); Albumin 3.4 g/dL (3.8-4.9); Albumin/Globulin Ratio 1.79 Ratio (1.60-3.17); Alkaline Phosphatase 64 U/L (41-126); Calcium 8.4 mg/dL (8.7-10.3); Globulin 1.9 g/dL (1.6-3.3); Total Bilirubin <0.2 mg/dL (0.3-1.2); Total Protein 5.3 g/dL (6.2-8.2)
[2024-12-08 22:04] LABS: Reticulocyte % 1.82 % (0.10-1.80)
== END | disposition home or self-care (01) ==
LOC: LABWHC1 13:20
PROVIDERS: ATTEND Internal Medicine
DX: D50.0 Iron deficiency anemia secondary to blood loss (chronic) (principal); K83.8 Other specified diseases of biliary tract
CPT/HCPCS: 36415; 80053; 82150; 82607; 82728; 82746; 83010; 83540; 83550; 83615; 83690; 85025; 85045